=== PATIENT | male | born 1965 | race Hispanic/Latino ===

== ENCOUNTER 2020-01-29 22:50 | Inpatient (IN) | payer MEDICAID ==
[2020-01-29 23:25] LABS: Basophils # (Auto) 0.1 K/mm3 (0.0-0.1); Basophils % (Auto) 1.1 % (0.0-1.8); Eosinophils # (Auto) 0.1 K/mm3 (0.0-0.4); Eosinophils % (Auto) 2.1 % (0.0-4.3); Hematocrit 42.6 % (35.5-45.6); Hemoglobin 14.9 gm/dl (11.8-15.2); Lymphocytes # (Auto) 2.8 K/mm3 (1.2-5.4); Lymphocytes % (Auto) 39.7 % (13.4-35.0); Mean Corpuscular HGB Conc 35 % (32-34); Mean Corpuscular Volume 82 fl (84-94); Monocytes % (Auto) 14.7 % (0.0-7.3); Platelet Count 332 K/mm3 (140-440); Red Blood Count 5.21 M/mm3 (3.65-5.03); Red Cell Distribution Width 15.2 % (13.2-15.2)
[2020-01-29 23:38] LABS: BUN/Creatinine Ratio 17; Blood Urea Nitrogen 20 mg/dL (9-20); Calcium 10.5 mg/dL (8.4-10.2); Hemolysis Index 5
[2020-01-29 23:41] LABS: INR 1.07 (0.87-1.13); Partial Thromboplastin Time 27.5 Sec. (24.2-36.6)
--- NOTE | 2020-01-30 00:02 | Cat Scan Report ---
CT HEAD WITHOUT CONTRAST INDICATION: Stroke-Like symptoms. Hx of previous T.I.A.'s Not balancing. Hx of High BP TECHNIQUE: All CT scans at this location are performed using CT dose reduction for ALARA by means of automated exposure control. COMPARISON: None available. FINDINGS: BRAIN: No hemorrhage or mass effect are seen. No evidence of acute cortical infarction is noted. Mode rate white matter microvascular changes and focal lacunar infarctions are seen. In the deep brain bessy aterally involving the basal ganglia and thalami, there are multiple small lacunar infarctions, most of which appear old but a few are age indeterminate. ORBITS: Normal as visualized. SOFT TISSUES OF HEAD: Normal. CALVARIUM: Normal. VISUALIZED PARANASAL SINUSES AND MASTOID AIR CELLS: Clear. ADDITIONAL FINDINGS: None. IMPRESSION: No definite acute abnormality is seen. Multiple focal ischemic changes as discussed above , a few age indeterminate. Signer Name: Blaine Herbert MD Signed: 01/29/2020 11:57 PM Workstation Name: [id number]
[2020-01-30] MEDS ORDERED: ASPIRIN 325 MG TAB PO ONE (00:17)
--- NOTE | 2020-01-30 00:21 | Emergency Department Report ---
ED Neuro Deficit HPI - General Chief Complaint: Neuro Symptoms/Deficit Stated Complaint: LOSS OF VISION LEFT EYE, WEAKNESS Time Seen by Provider: 01/29/20 23:06 Source: patient Mode of arrival: Ambulatory Limitations: No Limitations - History of Present Illness Initial Comments: Patient is a 54-year-old male with a past medical history of hype rtension diabetes who is presenting with 2 days of neurological symptoms. Patient states that approximately 2 days ago he started having gait imbalance. Patient states that he felt as though he was falling to the left. Patient also was having some difficulty with speaking. Patient states that he has left facial numbness. He denies any focal weakness to his arms or legs. Patient denies nausea vomiting diarrhea chest pain shortness of breath fevers or chills at this time. - Related Data Allergies/Adverse Reactions: Allergies Allergy/AdvReac Type Severity Reaction Status Date / Time No Known Allergies Allergy Unverified 01/29/20 23:01 ED Review of Systems ROS: Stated complaint: LOSS OF VISION LEFT EYE, WEAKNESS Other details as noted in HPI Comment: All other systems reviewed and negative ED Past Medical Hx - Past Medical History Hx Hypertension: Yes Hx Diabetes: Yes Hx Kidney Stones: Yes - Surgical History Past Surgical History?: Yes Hx Cholecystectomy: Yes - Social History Smoking Status: Never Smoker Substance Use Type: None ED Neuro Physical Exam - General Limitations: No Limitations General appearance: alert, in no apparent distress Suspected Stroke: Yes - Head Head exam: Present: atraumatic, normocephalic - Eye Eye exam: Present: normal appearance - ENT ENT exam: Present: mucous membranes moist - Neck Neck exam: Present: normal inspection - Respiratory Respiratory exam: Present: normal lung sounds bilaterally. Absent: respiratory distress, wheezes, rales - Cardiovascular Cardiovascular Exam: Present: regular rate, normal rhythm, normal heart sounds. Absent: systolic murmur, diastolic murmur, rubs, gallop - GI/Abdominal GI/Abdominal exam: Present: soft, normal bowel sounds. Absent: distended, tenderness, guarding, rebound - Rectal Rectal exam: Present: deferred - Extremities Exam Extremities exam: Present: normal inspection - Back Exam Back exam: Present: normal inspection - Neurological Exam Neurological exam: Present: alert, oriented X3, CN II-XII intact, motor sensory deficit - NIHSS Assessment Interval: Baseline 1a. Level of Consciousness: alert/keenly responsive 1b. LOC Questions: answers both correctly 1c. LOC Commands: performs tasks correctly 2. Best Gaze: normal 3. Visual: no visual loss 4. Facial Palsy: normal symmetrical movement 5b. Motor Arm Right: no drift 5a. Motor Arm Left: no drift 6a. Motor Leg Left: no drift 6b. Motor Leg Right: no drift 7. Limb Ataxia: absent 8. Sensory: mild/moderate sensory loss 9. Best Language: mild/moderate aphasia 10. Dysarthria: normal 11. Extinction/Inattention: no abnormality Total Score: 2 Stroke Severity: Minor Stroke - Psychiatric Psychiatric exam: Present: normal affect, normal mood - Skin Skin exam: Present: warm, dry, intact, normal color. Absent: rash ED Course Vital Signs 01/29/20 01/30/20 01/30/20 22:54 00:04 00:05 Temperature 97.5 F L Pulse Rate 90 66 66 Respiratory 20 18 Rate Blood Pressure 201/105 Blood Pressure 206/124 200/105 [Right] O2 Sat by Pulse 100 97 Oximetry 01/30/20 00:07 Temperature Pulse Rate Respiratory 18 Rate Blood Pressure Blood Pressure [Right] O2 Sat by Pulse 97 Oximetry - Lab Data Result diagrams: 01/29/20 23:06 01/29/20 23:06 Lab Results 01/29/20 01/29/20 01/29/20 Range/Units 23:06 23:06 23:06 WBC 7.0 (4.5-11.0) K/mm3 RBC 5.21 H (3.65-5.03) M/mm3 Hgb 14.9 (11.8-15.2) gm/dl Hct 42.6 (35.5-45.6) % MCV 82 L (84-94) fl MCH 29 (28-32) pg MCHC 35 H (32-34) % RDW 15.2 (13.2-15.2) % Plt Count 332 (140-440) K/mm3 Lymph % (Auto) 39.7 H (13.4-35.0) % [place] % (Auto) 14.7 H (0.0-7.3) % Eos % (Auto) 2.1 (0.0-4.3) % Baso % (Auto) 1.1 (0.0-1.8) % Lymph # 2.8 (1.2-5.4) K/mm3 [place] # 1.0 H (0.0-0.8) K/mm3 Eos # 0.1 (0.0-0.4) K/mm3 Baso # 0.1 (0.0-0.1) K/mm3 Seg Neutrophils % 42.4 (40.0-70.0) % Seg Neutrophils # 3.0 (1.8-7.7) K/mm3 PT 14.0 (12.2-14.9) Sec. INR 1.07 (0.87-1.13) APTT 27.5 (24.2-36.6) Sec. Thrombin Time (15.1-19.6) Sec. Sodium 142 (137-145) mmol/L Chloride 99.1 (98-107) mmol/L Carbon Dioxide 27 (22-30) mmol/L Anion Gap 18 mmol/L BUN 20 (9-20) mg/dL Creatinine 1.2 (0.8-1.5) mg/dL Estimated GFR > 60 ml/min BUN/Creatinine Ratio 17 % Glucose 193 H (75-100) mg/dL POC Glucose (70-105) Calcium 10.5 H (8.4-10.2) mg/dL Troponin T < 0.010 (0.00-0.029) ng/mL 01/29/20 01/29/20 Range/Units 23:06 23:21 WBC (4.5-11.0) K/mm3 RBC (3.65-5.03) M/mm3 Hgb (11.8-15.2) gm/dl Hct (35.5-45.6) % MCV (84-94) fl MCH (28-32) pg MCHC (32-34) % RDW (13.2-15.2) % Plt Count (140-440) K/mm3 Lymph % (Auto) (13.4-35.0) % [place] % (Auto) (0.0-7.3) % Eos % (Auto) (0.0-4.3) % Baso % (Auto) (0.0-1.8) % Lymph # (1.2-5.4) K/mm3 [place] # (0.0-0.8) K/mm3 Eos # (0.0-0.4) K/mm3 Baso # (0.0-0.1) K/mm3 Seg Neutrophils % (40.0-70.0) % Seg Neutrophils # (1.8-7.7) K/mm3 PT (12.2-14.9) Sec. INR (0.87-1.13) APTT (24.2-36.6) Sec. Thrombin Time 15.8 (15.1-19.6) Sec. Sodium (137-145) mmol/L Chloride (98-107) mmol/L Carbon Dioxide (22-30) mmol/L Anion Gap mmol/L BUN (9-20) mg/dL Creatinine (0.8-1.5) mg/dL Estimated GFR ml/min BUN/Creatinine Ratio % Glucose (75-100) mg/dL POC Glucose 170 H (70-105) Calcium (8.4-10.2) mg/dL Troponin T (0.00-0.029) ng/mL - Radiology Data Patient: RACHEL TORO MR#: [id number] : 1965 Acct:[id number] Age/Sex: 54 / M ADM Date: 01/29/20 Loc: ED Attending Dr: Ordering Physician: VIOLETA DUEÑAS MD Date of Service: 01/29/20 Procedure(s): CT head/brain wo con Accession Number(s): [id number] cc: VIOLETA DUEÑAS MD CT HEAD WITHOUT CONTRAST INDICATION: Stroke-Like symptoms. Hx of previous T.I.A.'s Not balancing. Hx of High BP TECHNIQUE: All CT scans at this location are performed using CT dose reduction for ALARA by means of automated exposure control. COMPARISON: None available. FINDINGS: BRAIN: No hemorrhage or mass effect are seen. No evidence of acute cortical infarction is noted. Moderate white matter microvascular changes and focal lacunar infarctions are seen. In the deep brain bilaterally involving the basal ganglia and thalami, there are multiple small lacunar infarctions, most of which appear old but a few are age indeterminate. ORBITS: Normal as visualized. SOFT TISSUES OF HEAD: Normal. CALVARIUM: Normal. VISUALIZED PARANASAL SINUSES AND MASTOID AIR CELLS: Clear. ADDITIONAL FINDINGS: None. IMPRESSION: No definite acute abnormality is seen. Multiple focal ischemic changes as discussed above, a few age indeterminate. Signer Name: Blaine Herbert MD Signed: 01/29/2020 11:57 PM Workstation Name: [id number] - Medical Decision Making Patient is a 54-year-old male is presenting with several neurological symptoms. Symptoms been present for greater than 24 hours making the patient not a candidate for TPA or intervention. Patient is has a relatively low NIH. Patient does have age indeterminate lacunar infarcts on CT. Patient given aspirin. Blood pressure was managed with labetalol. Patient be admitted to the hospitalist service for further neurological evaluation. Critical care attestation.: If time is entered above; I have spent that time in minutes in the direct care of this critically ill patient, excluding procedure time. ED Disposition Clinical Impression: Acute lacunar infarction, Hypertensive urgency, malignant, Hyperglycemia Disposition: -09 OP ADMIT IP TO THIS HOSP Is pt being admited?: Yes Does the pt Need Aspirin: No Condition: Stable Time of Disposition: 00:26
[2020-01-30] MEDS ORDERED: POTASSIUM CHLORIDE ER 20 MEQ TAB PO ONE ×2 (00:41→00:44)
[2020-01-30] MEDS ORDERED: ASPIRIN 325 MG TAB ONE (00:44)
[2020-01-30] MEDS ORDERED: ACETAMINOPHEN 650 MG RECT SUPP PR PRN (02:02)
[2020-01-30] MEDS ORDERED: ONDANSETRON 4 MG/2 ML INJ IV PRN (02:02)
[2020-01-30] MEDS ORDERED: DEXTROSE 50% IN WATER (25GM) 50 ML SYRINGE IV PRN (02:05)
--- NOTE | 2020-01-30 05:06 | History and Physical Report ---
History of Present Illness Date of examination: 01/30/20 Date of admission: 01/30/20 00:26 Chief complaint: Ataxia and Right Facial Numbness History of present illness: History of present illness, patient is a 54-year-old male started having difficulty maintaining his balance while walking. Patient was also having numbness on the left side of the face. He has also history of speech impairment and denies history of fever, cough, chest pain, nausea or vomiting. Past History Past Medical History: diabetes, hypertension, stroke Past Surgical History: No surgical history Social history: no significant social history Family history: no significant family history Medications and Allergies Allergies Allergy/AdvReac Type Severity Reaction Status Date / Time No Known Allergies Allergy Unverified 01/29/20 23:01 Home Medications Medication Instructions Recorded Confirmed Last Taken Type Atorvastatin [Lipitor Tab] 40 mg PO QDAY 01/30/20 01/30/20 Unknown History Metformin HCl [metFORMIN] 1,000 mg PO QDAY 01/30/20 01/30/20 Unknown History amLODIPine [Norvasc] 10 mg PO DAILY 01/30/20 01/30/20 Unknown History lisinopriL [Zestril TAB] 40 mg PO QDAY 01/30/20 01/30/20 Unknown History Active Meds: Active Medications Acetaminophen (Tylenol) 650 mg [place] Q4H PRN PRN Reason: Fever >101 Amlodipine Besylate (Amlodipine) 10 mg PO DAILY [facility] Aspirin (Aspirin) 325 mg PO QDAY [facility] Atorvastatin Calcium (Lipitor) 40 mg PO QDAY [facility] Dextrose (D50w (25gm) Syringe) 0 ml IV Q30MIN PRN; Protocol PRN Reason: Hypoglycemia Insulin Human Regular (Humulin R) 0 units SUB-Q AC [facility]; Protocol Insulin Human Regular (Humulin R) 0 units SUB-Q QHS [facility]; Protocol Lisinopril (Zestril) 40 mg PO QDAY [facility] Ondansetron HCl (Zofran) 4 mg IV Q8H PRN PRN Reason: Nausea And Vomiting Pneumococcal Polyvalent Vaccine (Pneumovax 23) 0.5 ml IM .ONCE ONE Stop: 01/30/20 12:01 Review of Systems Constitutional: weakness, no weight gain, no fever, no chills, no anorexia, no fatigue, no malaise Eyes: bilateral: other (NO BILATERAL EYE SYMPTOMS) Ears, nose, mouth and throat: no ear pain, no decreased hearing, no nasal congestion, no nasal discharge, no sinus pressure, no dental pain, no mouth pain, no dysphagia, no hoarseness, no swelling in mouth, no headache, no vertigo Cardiovascular: no chest pain, no orthopnea, no palpitations, no syncope, no lightheadedness, no shortness of breath, no paroxysmal nocturnal dyspnea Respiratory: no cough, no shortness of breath, no dyspnea on exertion, no wheezing, no pleurisy, no pain on inspiration Gastrointestinal: no abdominal pain, no nausea, no vomiting, no diarrhea, no constipation, no change in bowel habits, no hematemesis, no melena, no loss of appetite, no early satiety, no heartburn, no indigestion Genitourinary Male: no dysuria, no urinary frequency, no urinary hesitancy, no nocturia, no impotence Rectal: no pain, no incontinence, no hemorrhoids, no discharge Musculoskeletal: no neck pain, no shooting arm pain, no arm numbness/tingling, no low back pain, no shooting leg pain, no leg numbness/tingling, no redness of joints, no morning stiffness, no muscle weakness, no muscle cramps, no myalgias, no atrophy, no frequent falls, no fractures, no loss of height Integumentary: no rash, no pruritis, no redness, no sores, no wounds, no jaundice, no growths, no bullae, no lesions, no depigmentation, no acne, no dryness, no color changes, no striae, no hirsutism Neurological: change in speech, balance difficulties, no head injury, no paralysis, no weakness, no parathesias, no numbness, no tingling, no seizures, no syncope, no tremors, no ataxia, no vertigo, no headaches, no migraines, no convulsions Psychiatric: no anxiety, no insomnia, no suicidal ideation, no hopelessness, no anhedonia, no anxiety attacks, no difficulties concentrating, no confusion Endocrine: no cold intolerance, no heat intolerance, no polyphagia, no excessive thirst, no polydipsia, no polyuria, no nocturia, no excessive sweating, no proptosis, no deepening of the voice, no palpatations, no high blood sugars, no low blood sugars, no recent glucocorticoid use Hematologic/Lymphatic: no easy bruising, no easy bleeding, no lymphadenopathy, n o lymphedema Allergic/Immunologic: no allergic rhinitis, no persistent infections, no anaphylaxis, no angioedema, no gluten intolerance Exam - Constitutional Vitals: Temp Pulse Resp BP Pulse Ox 98.3 F 68 22 185/94 100 01/30/20 02:07 01/30/20 03:42 01/30/20 02:07 01/30/20 02:07 01/30/20 03:42 General appearance: Present: no acute distress. Absent: disheveled - EENT Eyes: Present: PERRL, EOM intact. Absent: mydriasis ENT: no hearing intact - Neck Neck: Present: supple, normal ROM. Absent: carotid bruits - Respiratory Respiratory effort: normal - Cardiovascular Rhythm: regular Heart Sounds: Present: S1 & S2. Absent: gallop, systolic murmur, diastolic murmur, rub - Extremities Extremities: no ischemia, No edema Peripheral Pulses: within normal limits - Abdominal General gastrointestinal: Present: soft, non-tender, non-distended, mass. Absent: tender, distended, rigid, hypoactive bowel sounds, absent bowel sounds, hepatomegaly, splenomegaly Male genitourinary: Present: normal. Absent: tender, right inguinal hernia, left inguinal hernia, penile edema - Rectal Rectal Exam: deferred - Integumentary Integumentary: Present: clear, warm. Absent: dry, jaundice, rash, clammy - Musculoskeletal Musculoskeletal: strength equal bilaterally, generalized weakness - Psychiatric Psychiatric: appropriate mood/affect - Neurologic Neurologic: CNII-XII intact Results - Labs CBC & Chem 7: 01/29/20 23:06 01/29/20 23:06 Labs: Laboratory Last Values WBC 7.0 K/mm3 (4.5-11.0) 01/29/20 23:06 RBC 5.21 M/mm3 (3.65-5.03) H 01/29/20 23:06 Hgb 14.9 gm/dl (11.8-15.2) 01/29/20 23:06 Hct 42.6 % (35.5-45.6) 01/29/20 23:06 MCV 82 fl (84-94) L 01/29/20 23:06 MCH 29 pg (28-32) 01/29/20 23:06 MCHC 35 % (32-34) H 01/29/20 23:06 RDW 15.2 % (13.2-15.2) 01/29/20 23:06 Plt Count 332 K/mm3 (140-440) 01/29/20 23:06 Lymph % (Auto) 39.7 % (13.4-35.0) H 01/29/20 23:06 [place] % (Auto) 14.7 % (0.0-7.3) H 01/29/20 23:06 Eos % (Auto) 2.1 % (0.0-4.3) 01/29/20 23:06 Baso % (Auto) 1.1 % (0.0-1.8) 01/29/20 23:06 Lymph # 2.8 K/mm3 (1.2-5.4) 01/29/20 23:06 [place] # 1.0 K/mm3 (0.0-0.8) H 01/29/20 23:06 Eos # 0.1 K/mm3 (0.0-0.4) 01/29/20 23:06 Baso # 0.1 K/mm3 (0.0-0.1) 01/29/20 23:06 Seg Neutrophils % 42.4 % (40.0-70.0) 01/29/20 23:06 Seg Neutrophils # 3.0 K/mm3 (1.8-7.7) 01/29/20 23:06 PT 14.0 Sec. (12.2-14.9) 01/29/20 23:06 INR 1.07 (0.87-1.13) 01/29/20 23:06 APTT 27.5 Sec. (24.2-36.6) 01/29/20 23:06 Thrombin Time 15.8 Sec. (15.1-19.6) 01/29/20 23:06 Sodium 142 mmol/L (137-145) 01/29/20 23:06 Potassium 2.5 mmol/L (3.6-5.0) L* 01/29/20 23:06 Chloride 99.1 mmol/L (98-107) 01/29/20 23:06 Carbon Dioxide 27 mmol/L (22-30) 01/29/20 23:06 Anion Gap 18 mmol/L 04/30/20 23:06 BUN 20 mg/dL (9-20) 01/29/20 23:06 Creatinine 1.2 mg/dL (0.8-1.5) 01/29/20 23:06 Estimated GFR > 60 ml/min 01/29/20 23:06 BUN/Creatinine Ratio 17 % 01/29/20 23:06 Glucose 193 mg/dL (75-100) H 01/29/20 23:06 POC Glucose 170 (70-105) H 01/29/20 23:21 Calcium 10.5 mg/dL (8.4-10.2) H 01/29/20 23:06 Troponin T < 0.010 ng/mL (0.00-0.029) 01/29/20 23:06 Akhtar/IV: IV Catheter Type [Left INT / Saline Lock Antecubital] Assessment and Plan - Patient Problems (1) Hypokalemia Current Visit: Yes Status: Acute (2) Acute lacunar infarction Current Visit: Yes Status: Acute Plan to address problem: 1. patient will be admitted to telemetry as in-patient, patient will be on daily aspirin. 25 mg bilateral 2. N.p.o. until swallow test is passed and patient will have speech therapy consult this morning 3. Patient will have neurological follow-up with Dr. scott Gamez 4. Patient will have MRI of the brain without contrast and will have bilateral carotid Doppler done this morning. 5. Patient will have 2D echo done this morning, and will have physical therapy consult for evaluation and treatment 6. Patient will be on Accu-Cheks ac and qhs followed by low-dose regular insulin sliding scale. 7. Patient will have IV potassium chloride replacement 8. Patient's blood pressure will be monitored and gradually reduced. (3) Hypertensive urgency, malignant Current Visit: Yes Status: Acute (4) Hyperglycemia Current Visit: Yes Status: Acute
[2020-01-30] MEDS: POTASSIUM CHLORIDE 10 MEQ 10 MEQ/100 ML BAG IV SCH ×2 (06:21→07:00)
[2020-01-30] MEDS: INSULIN REGULAR, HUMAN 100 UNITS/1 ML SUB-Q SCH ×4 (07:30→21:18)
--- NOTE | 2020-01-30 10:20 | Event Note ---
Date: 01/30/20 Chart reviewed. This is a follow-up from an admission earlier this morning. We will continue to plan as outlined in the H&P. Total visit time equals 35 minutes with greater than 50% spent on coordination of care and counseling.
--- NOTE | 2020-01-30 10:22 | Magnetic Resonance Report ---
MRI BRAIN WITHOUT CONTRAST INDICATION / CLINICAL INFORMATION: MAIN: LACUNAR INFARCT WITH ATAXIA, FACIAL NUMBNESS, SLURRED SPEECH. TECHNIQUE: Multiplanar, multisequence MR images of the brain were obtained. COMPARISON: The study is compared to the earlier CT of 01/29/2020. FINDINGS: BRAIN / INTRACRANIAL CONTENTS: There is an acute to infarct along the left middle cerebellar peduncle and anterior left cerebellum measuring 2.2 cm in greatest AP dimension. There are old the small infa rcts involving the left paramedian mariano as well as the torres radiata, larger on the right. There are also lacunar infarcts along the right basal ganglia which are chronic. There is otherwise mild to mo derate microvascular angiopathy. The diffusion imaging reveals no further evidence of recent infarcti on. Above findings are advanced for the patient's age at. This mild cerebral atrophy with associated prom inence of the ventricular system. No extra-axial fluid collections or significant mass effect is iden tified at. CRANIOCERVICAL JUNCTION: No significant abnormality. VASCULAR FLOW-VOIDS: The motion degrades the image quality. However, the distal internal carotid yoel kota and vertebrobasilar system grossly demonstrate appropriate signal voids. ORBITS: No significant abnormality of visualized orbits. SINUSES / MASTOIDS: There are mild focal inflammatory changes within the left ethmoid air cells. ADDITIONAL FINDINGS: None. IMPRESSION: 1. There is a 2.2 cm acute infarct involving the left middle cerebellar peduncle and anterior left ce rebellum as detailed above. 2. There are otherwise multiple old infarcts and mild to moderate microvascular angiopathy, also desc ribed above. Signer Name: Rico Torres MD Signed: 01/30/2020 10:17 AM Workstation Name: [id number]
--- NOTE | 2020-01-30 10:30 | Vascular Lab Report ---
VL carotid duplex BILAT INDICATION / CLINICAL INFORMATION: ATAXIA AND LACUNAR BRAIN INFARCT. COMPARISON: None available. FINDINGS: NASCET criteria were used for stenosis determination. Right common carotid peak systolic velocity 116 Right common carotid end-diastolic velocity 13 Right internal carotid peak systolic velocity 78 Right internal carotid end-diastolic velocity 20 Left common carotid peak systolic velocity 72 Left common carotid end-diastolic velocity 12 Left internal carotid peak systolic velocity 88 Left internal carotid end-diastolic velocity 24 Antegrade vertebral flow is demonstrated bilaterally. IMPRESSION: 1. 0-50% stenosis of the common and internal carotid arteries. Signer Name: Lizandro Ramos MD Signed: 01/30/2020 10:26 AM Workstation Name: [id number]
[2020-01-30] MEDS: ASPIRIN 325 MG TAB PO SCH (10:44)
[2020-01-30] MEDS: LISINOPRIL 40 MG TAB PO SCH (10:45)
[2020-01-30] MEDS: amLODIPine 10 MG TAB PO SCH (10:45)
[2020-01-30] MEDS ORDERED: PNEUMOCOCCAL 23 Valent 0.5 ML VIAL IM ONE (12:00)
[2020-01-30 14:44] LABS: Chol/HDL Ratio 5.22 %
--- NOTE | 2020-01-30 15:38 | Consultation ---
Past History Past Medical History: diabetes, hypertension, stroke Past Surgical History: No surgical history Social history: no significant social history Family history: no significant family history Medications and Allergies Allergies Allergy/AdvReac Type Severity Reaction Status Date / Time No Known Allergies Allergy Unverified 01/29/20 23:01 Home Medications Medication Instructions Recorded Confirmed Last Taken Type Atorvastatin [Lipitor Tab] 40 mg PO QDAY 01/30/20 01/30/20 Unknown History Metformin HCl [metFORMIN] 1,000 mg PO QDAY 01/30/20 01/30/20 Unknown History amLODIPine [Norvasc] 10 mg PO DAILY 01/30/20 01/30/20 Unknown History lisinopriL [Zestril TAB] 40 mg PO QDAY 01/30/20 01/30/20 Unknown History Active Meds: Active Medications Acetaminophen (Tylenol) 650 mg [place] Q4H PRN PRN Reason: Fever >101 Amlodipine Besylate (Amlodipine) 10 mg PO DAILY [facility] Last Admin: 01/30/20 10:45 Dose: 10 mg Documented by: Aspirin (Aspirin) 325 mg PO QDAY [facility] Last Admin: 01/30/20 10:44 Dose: 325 mg Documented by: Atorvastatin Calcium (Lipitor) 40 mg PO QDAY [facility] Last Admin: 01/30/20 10:44 Dose: 40 mg Documented by: Dextrose (D50w (25gm) Syringe) 0 ml IV Q30MIN PRN; Protocol PRN Reason: Hypoglycemia Insulin Human Regular (Humulin R) 0 units SUB-Q [facility]; Protocol Last Admin: 01/30/20 11:57 Dose: Not Given Documented by: Insulin Human Regular (Humulin R) 0 units SUB-Q QHS [facility]; Protocol Lisinopril (Zestril) 40 mg PO QDAY [facility] Last Admin: 01/30/20 10:45 Dose: 40 mg Documented by: Ondansetron HCl (Zofran) 4 mg IV Q8H PRN PRN Reason: Nausea And Vomiting Physical Examination - Vital Signs Vital Signs: Vital Signs Temp Pulse Resp BP Pulse Ox 97.5 F L 90 20 206/124 100 01/29/20 22:54 01/29/20 22:54 01/29/20 22:54 01/29/20 22:54 01/29/20 22:54 Results - Laboratory Findings CBC and BMP: 01/29/20 23:06 01/29/20 23:06 Abnormal Lab Findings: Abnormal Labs 01/29/20 01/29/20 01/29/20 23:06 23:06 23:21 RBC 5.21 H MCV 82 L MCHC 35 H Lymph % (Auto) 39.7 H [place] % (Auto) 14.7 H [place] # 1.0 H Potassium 2.5 L* Glucose 193 H POC Glucose 170 H Calcium 10.5 H Triglycerides HDL Cholesterol 01/30/20 01/30/20 01/30/20 06:11 08:21 11:30 RBC MCV MCHC Lymph % (Auto) [place] % (Auto) [place] # Potassium Glucose POC Glucose 196 H 180 H 129 H Calcium Triglycerides HDL Cholesterol 01/30/20 13:26 RBC MCV MCHC Lymph % (Auto) [place] % (Auto) [place] # Potassium Glucose POC Glucose Calcium Triglycerides 293 H HDL Cholesterol 31 L Assessment and Plan 54 YEAR OLD MALE WITH HISTORY OF HYPERTENSION,DIABETES WHO PRERSENTED TO THE ER WITH 2 DAYS HISTORY OF A TENDENCY TO MOVE TO THE LEFT WHILE WAKING AND ALSO MILD LEFT SIDED WEAKNESS,AND LEFT FACIAL NUMBNESS ION THE ROCKY ORAL AREA ON THE LEFT SIDE. WORK UP INCLUDING CT SCAN SHOWED MULTIPLE LACUNAR INFARCTS IN THE RIGHT BASAL GANGLIA,AND ONE OR TWO ON LEFT SIDE, LAB SHOWED INCREASED TRIGLYCERIDE AND INCREASED LDL AND LOW HDL. PHYSICAL EXAMINATION GENERAL - IN NO ACUTE DISTRESS. PATIENT IS ALERT AND APPROPRIATE AND HAS INSIGHT INTO HIS PROBLEMS AND ANSWERS QUESTIONS APPROPRIATELY HEART-NORMAL RATE AND RHYTHM. CAROTIDS- BOTH PALPABLE CRANIAL NERVES- NO FACIAL ASYMMETRY WAS NOTED, NO FACIAL WEAKNESS. LEFT ROCKY ORAL NUMBNESS WAS NOTED MOTOR- MILD WEAKNESS OF LEFT UPPER AND LOWER EXTREMITIES COMPARED TO THE RIGHT. REFLEXES- SLIGHTLY INCREASED ON THE LEFT SIDE WITH UP GOING TOE ON THE LEFT. [id number]- FINGER TO NOSE IS SLIGHTLY DYSMETRIC ON THE LEFT SENSORY- SENSORY EXAMINATION IS GROSSLY WITH IN NORMAL LIMIT IIMPRESSION. 1. LACUNAR STROKE IN THE RT BASAL GANGLIA , SMALL VESSEL DISEASE CONTRIBUTING TO LEFT SIDE GAIT IMBALANCE. RECOMMEND. 1. ASPIRIN AND STATIN. 2. 2D ECHO, CTA OF NECK 3. T4.TSH. 4. PHYSICAL THERAPY FOR GAIT TRAINING 5. DIETARY COUNSELING FOR LOW FAT AND LOW CHOLESTEROL DIET.
[2020-01-30] MEDS ORDERED: HALOPERIDOL LACTATE 5 MG/1 ML INJ IM ONE (16:10)
[2020-01-31] MEDS ORDERED: ZOLPIDEM 5 MG TAB PO ONE (01:27)
[2020-01-31] MEDS ORDERED: hydrALAZINE 20 MG/1 ML INJ IV ONE (01:35)
[2020-01-31] MEDS: INSULIN REGULAR, HUMAN 100 UNITS/1 ML SUB-Q SCH ×4 (09:00→21:46)
[2020-01-31] MEDS: ASPIRIN 325 MG TAB PO SCH (09:01)
[2020-01-31] MEDS: amLODIPine 10 MG TAB PO SCH (09:01)
[2020-01-31] MEDS: LISINOPRIL 40 MG TAB PO SCH (09:01)
--- NOTE | 2020-01-31 10:38 | Progress Note ---
Assessment and Plan Assessment and plan: Right basal ganglia lacunar infarct. Continue aspirin and statin. Follow-up CTA of neck and echocardiogram. Follow-up TSH T4. PT/OT. PT recommends subacute rehab. Hypertension. Continue antihypertensive medications. Diabetes mellitus type 2. Continue Accu-Cheks and sliding scale insulin. Disposition. Subacute rehab when bed available. History Interval history: No new issues Hospitalist Physical - Constitutional Vitals: Temp Pulse Resp BP Pulse Ox 98.6 F 75 20 169/95 96 01/31/20 08:16 01/31/20 09:01 01/31/20 08:16 01/31/20 09:01 01/31/20 08:16 General appearance: Present: no acute distress. Absent: disheveled - EENT Eyes: Present: PERRL, EOM intact ENT: hearing intact, clear oral mucosa, dentition normal - Neck Neck: Present: supple, normal ROM - Respiratory Respiratory effort: normal Respiratory: bilateral: CTA - Cardiovascular Rhythm: regular Heart Sounds: Present: S1 & S2. Absent: gallop, rub - Extremities Extremities: no ischemia, No edema, Full ROM - Abdominal General gastrointestinal: soft, non-tender, non-distended, normal bowel sounds - Integumentary Integumentary: Present: clear, warm, dry - Neurologic Neurologic: CNII-XII intact, moves all extremities Results - Labs CBC & Chem 7: 01/29/20 23:06 01/29/20 23:06 Labs: Laboratory Last Values WBC 7.0 K/mm3 (4.5-11.0) 01/29/20 23:06 RBC 5.21 M/mm3 (3.65-5.03) H 01/29/20 23:06 Hgb 14.9 gm/dl (11.8-15.2) 01/29/20 23:06 Hct 42.6 % (35.5-45.6) 01/29/20 23:06 MCV 82 fl (84-94) L 01/29/20 23:06 MCH 29 pg (28-32) 01/29/20 23:06 MCHC 35 % (32-34) H 01/29/20 23:06 RDW 15.2 % (13.2-15.2) 01/29/20 23:06 Plt Count 332 K/mm3 (140-440) 01/29/20 23:06 Lymph % (Auto) 39.7 % (13.4-35.0) H 01/29/20 23:06 [place] % (Auto) 14.7 % (0.0-7.3) H 01/29/20 23:06 Eos % (Auto) 2.1 % (0.0-4.3) 01/29/20 23:06 Baso % (Auto) 1.1 % (0.0-1.8) 01/29/20 23:06 Lymph # 2.8 K/mm3 (1.2-5.4) 01/29/20 23:06 [place] # 1.0 K/mm3 (0.0-0.8) H 01/29/20 23:06 Eos # 0.1 K/mm3 (0.0-0.4) 01/29/20 23:06 Baso # 0.1 K/mm3 (0.0-0.1) 01/29/20 23:06 Seg Neutrophils % 42.4 % (40.0-70.0) 01/29/20 23:06 Seg Neutrophils # 3.0 K/mm3 (1.8-7.7) 01/29/20 23:06 PT 14.0 Sec. (12.2-14.9) 01/29/20 23:06 INR 1.07 (0.87-1.13) 01/29/20 23:06 APTT 27.5 Sec. (24.2-36.6) 01/29/20 23:06 Thrombin Time 15.8 Sec. (15.1-19.6) 01/29/20 23:06 Sodium 142 mmol/L (137-145) 01/29/20 23:06 Potassium 2.5 mmol/L (3.6-5.0) L* 01/29/20 23:06 Chloride 99.1 mmol/L (98-107) 01/29/20 23:06 Carbon Dioxide 27 mmol/L (22-30) 01/29/20 23:06 Anion Gap 18 mmol/L 01/29/20 23:06 BUN 20 mg/dL (9-20) 01/29/20 23:06 Creatinine 1.2 mg/dL (0.8-1.5) 01/29/20 23:06 Estimated GFR > 60 ml/min 01/29/20 23:06 BUN/Creatinine Ratio 17 % 01/29/20 23:06 Glucose 193 mg/dL (75-100) H 01/29/20 23:06 POC Glucose 140 (70-105) H 01/31/20 06:40 Calcium 10.5 mg/dL (8.4-10.2) H 01/29/20 23:06 Troponin T < 0.010 ng/mL (0.00-0.029) 01/29/20 23:06 Triglycerides 293 mg/dL (2-149) H 01/30/20 13:26 Cholesterol 162 mg/dL (50-199) 01/30/20 13:26 LDL Cholesterol Direct 105 mg/dL (50-130) 01/30/20 13:26 HDL Cholesterol 31 mg/dL (40-59) L 01/30/20 13:26 Cholesterol/HDL Ratio 5.22 % 01/30/20 13:26 Nasal Screen MRSA (PCR) Negative (Negative) 01/30/20 04:50 - Diagnostic Impressions Diagnostic Impressions: Echocardiogram 01/30/20 06:00 Transthoracic Echocardiogram Indication: Brain infarct BP: 185/94 HR: 72 Conclusions *Mild concentric left ventricular hypertrophy is observed. *Global left ventricular systolic function is normal. *The estimated ejection fraction is 55-60%. *Abnormal left ventricular diastolic filling is observed, consistent with impaired relaxation. *There is mild aortic regurgitation. *There is no pericardial effusion. *Normal bubble study without evidence of intracardiac or intrapulmonary communication Findings Left Ventricle: The left ventricular chamber size is normal. Mild concentric left ventricular hypertrophy is observed. Global left ventricular systolic function is normal. The estimated ejection fraction is 55-60%. Abnormal left ventricular diastolic filling is observed, consistent with impaired relaxation. Left Atrium: The left atrial chamber size is normal. Right Ventricle: The right ventricular cavity size is normal. The right ventricular global systolic function is normal. Right Atrium: The right atrial cavity size is normal. No atrial septal defected is demonstrated by agitated saline contrast. Aortic Valve: The aortic valve is trileaflet. There is mild aortic regurgitation. Mitral Valve: The mitral valve leaflets are mildly thickened. There is trace of mitral regurgitation. Tricuspid Valve: The tricuspid valve leaflets are normal. There is trace tricuspid regurgitation. The right ventricular systolic pressure is calculated at 21 mmHg. Pulmonic Valve: The pulmonic valve appears normal. There is no evidence of pulmonic regurgitation. Pericardium: There is no pericardial effusion. There is a minimial pericardial effusion. Aorta: There is no dilatation of the ascending aorta. There is no dilatation of the aortic root. Venous: The inferior vena cava appears normal in size. There is a greater than 50% respiratory change in the inferior vena cava dimension. Measurements Chambers 2D Name Value Normal Range IVSd (2D) 1.26 cm (0.6 - 1.1) LVPWd (2D) 1.28 cm (0.6 - 1.1) LVIDd (2D) 4.16 cm (3.7 - 5.6) LVIDs (2D) 2.61 cm (2 - 3.8) LV FS (2D) 37.36 % - EF Teichholz (2D) 67.78 % - Ao root diameter (2D) 3.66 cm (2 - 3.7) Volumes/Mass Name Value Normal Range LA ESV SP 4CH (A/L) 47.43 ml - LA ESV SP 2CH (A/L) 49.43 ml - LA ESV BP (A/L) 50.34 ml - LA ESV BP (A/L) index 25.42 ml/m2 - LA ESV SP 4CH (MOD) 43.41 ml - LA ESV SP 2CH (MOD) 46.74 ml - LA ESV BP (MOD) 46.78 ml - LA ESV BP (MOD) index 23.63 ml/m2 - Diastolic/Systolic Function Name Value Normal Range MV E-wave Vmax 0.7 m/sec - MV deceleration time 237.63 msec - MV A-wave Vmax 0.85 m/sec - MV E:A ratio 0.82 ratio - Aortic Valve Name Value Normal Range AV Vmax 1.4 m/sec - AV VTI 24.22 cm - AV peak gradient 7.8 mmHg - AV mean gradient 4.66 mmHg - LVOT diameter 2.1 cm - LVOT Vmax 1.24 m/sec - LVOT VTI 28.19 cm - LVOT peak gradient 6.15 mmHg - LVOT mean gradient 3.55 mmHg - SV LVOT 97.55 ml - KETURAH (continuity Vmax) 3.07 cm2 - KETURAH (continuity VTI) 4.03 cm2 - AR PHT 535.67 msec - AR peak gradient 64.79 mmHg - Tricuspid Valve Name Value Normal Range TR Vmax 2.13 m/sec - TR peak gradient 18 mmHg - RAP 3 mmHg - RVSP 21 mmHg - IVC diameter 1.81 cm (1.2 - 2.3) Pulmonic Valve/Qp:Qs Name Value Normal Range PV Vmax 1.06 m/sec - PV peak gradient 4.47 mmHg - PV acceleration time 133.21 msec - Akhtar/IV: Voiding Method Urinal IV Catheter Type [Left INT / Saline Lock Antecubital] Active Medications - Current Medications Current Medications: Generic Name Dose Route Start Last Admin Trade Name Freq PRN Reason Stop Dose Admin Acetaminophen 650 mg 01/30/20 02:02 Tylenol [place] Q4H PRN Fever >101 Amlodipine Besylate 10 mg 01/30/20 10:00 01/31/20 09:01 Amlodipine PO 10 mg DAILY MATEUSZ Administration Aspirin 325 mg 01/30/20 10:00 01/31/20 09:01 Aspirin PO 325 mg QDAY MATEUSZ Administration Atorvastatin Calcium 40 mg 01/30/20 10:00 01/31/20 09:01 Lipitor PO 40 mg QDAY MATEUSZ Administration Dextrose 0 ml 01/30/20 02:05 D50w (25gm) Syringe IV Q30MIN PRN Hypoglycemia Protocol Insulin Human Regular 0 units 01/30/20 07:30 01/31/20 09:00 Humulin R SUB-Q Not Given AC MATEUSZ Protocol Insulin Human Regular 0 units 01/30/20 22:00 01/30/20 21:18 Humulin R SUB-Q Not Given QHS MATEUSZ Protocol Lisinopril 40 mg 01/30/20 10:00 01/31/20 09:01 Zestril PO 40 mg QDAY MATEUSZ Administration Ondansetron HCl 4 mg 01/30/20 02:02 Zofran IV Q8H PRN Nausea And Vomiting
[2020-01-31] MEDS: hydrALAZINE 20 MG/1 ML INJ IV PRN (22:44)
[2020-01-31] MEDS: ZOLPIDEM 5 MG TAB PO PRN (23:42)
[2020-02-01] MEDS: hydrALAZINE 20 MG/1 ML INJ IV PRN (05:17)
[2020-02-01] MEDS: INSULIN REGULAR, HUMAN 100 UNITS/1 ML SUB-Q SCH ×5 (08:16→22:50)
--- NOTE | 2020-02-01 08:52 | Progress Note ---
Assessment and Plan Assessment and plan: Right basal ganglia lacunar infarct. Continue aspirin and statin. Follow-up CTA of neck and echocardiogram. Follow-up TSH T4. PT/OT. PT recommends subacute rehab. Hypertension. Continue antihypertensive medications. Diabetes mellitus type 2. Continue Accu-Cheks and sliding scale insulin. Disposition. Subacute rehab when bed available. 02/01/2020. Echocardiogram reveals mild concentric left ventricular hypertrophy with EF of 55 to 60%. Normal bubble study without evidence of intracardiac or intrapulmonary communication. Carotid Doppler negative. MRI reveals 2.2 cm acute infarct involving the left middle cerebellar peduncle and anterior left cerebellum. Also, multiple old basal ganglia lacunar infarcts and mild to moderate microvascular angiopathy. PT recommends [facility]. Continue PT/OT. Await placement. History Interval history: No new issues Hospitalist Physical - Constitutional Vitals: Temp Pulse Resp BP Pulse Ox 98.5 F 87 20 146/85 97 02/01/20 07:43 02/01/20 07:43 02/01/20 07:43 02/01/20 07:43 02/01/20 07:43 General appearance: Present: no acute distress. Absent: disheveled - EENT Eyes: Present: PERRL, EOM intact ENT: hearing intact, clear oral mucosa, dentition normal - Neck Neck: Present: supple, normal ROM - Respiratory Respiratory effort: normal Respiratory: bilateral: CTA - Cardiovascular Rhythm: regular Heart Sounds: Present: S1 & S2. Absent: gallop, rub - Extremities Extremities: no ischemia, No edema, Full ROM - Abdominal General gastrointestinal: soft, non-tender, non-distended, normal bowel sounds - Integumentary Integumentary: Present: clear, warm, dry - Neurologic Neurologic: CNII-XII intact, moves all extremities Results - Labs CBC & Chem 7: 01/29/20 23:06 01/29/20 23:06 Labs: Laboratory Last Values WBC 7.0 K/mm3 (4.5-11.0) 01/29/20 23:06 RBC 5.21 M/mm3 (3.65-5.03) H 01/29/20 23:06 Hgb 14.9 gm/dl (11.8-15.2) 01/29/20 23:06 Hct 42.6 % (35.5-45.6) 01/29/20 23:06 MCV 82 fl (84-94) L 01/29/20 23:06 MCH 29 pg (28-32) 01/29/20 23:06 MCHC 35 % (32-34) H 01/29/20 23:06 RDW 15.2 % (13.2-15.2) 01/29/20 23:06 Plt Count 332 K/mm3 (140-440) 01/29/20 23:06 Lymph % (Auto) 39.7 % (13.4-35.0) H 01/29/20 23:06 [place] % (Auto) 14.7 % (0.0-7.3) H 01/29/20 23:06 Eos % (Auto) 2.1 % (0.0-4.3) 01/29/20 23:06 Baso % (Auto) 1.1 % (0.0-1.8) 01/29/20 23:06 Lymph # 2.8 K/mm3 (1.2-5.4) 01/29/20 23:06 [place] # 1.0 K/mm3 (0.0-0.8) H 01/29/20 23:06 Eos # 0.1 K/mm3 (0.0-0.4) 01/29/20 23:06 Baso # 0.1 K/mm3 (0.0-0.1) 01/29/20 23:06 Seg Neutrophils % 42.4 % (40.0-70.0) 01/29/20 23:06 Seg Neutrophils # 3.0 K/mm3 (1.8-7.7) 01/29/20 23:06 PT 14.0 Sec. (12.2-14.9) 01/29/20 23:06 INR 1.07 (0.87-1.13) 01/29/20 23:06 APTT 27.5 Sec. (24.2-36.6) 01/29/20 23:06 Thrombin Time 15.8 Sec. (15.1-19.6) 01/29/20 23:06 Sodium 142 mmol/L (137-145) 01/29/20 23:06 Potassium 2.5 mmol/L (3.6-5.0) L* 01/29/20 23:06 Chloride 99.1 mmol/L (98-107) 01/29/20 23:06 Carbon Dioxide 27 mmol/L (22-30) 01/29/20 23:06 Anion Gap 18 mmol/L 01/29/20 23:06 BUN 20 mg/dL (9-20) 01/29/20 23:06 Creatinine 1.2 mg/dL (0.8-1.5) 01/29/20 23:06 Estimated GFR > 60 ml/min 01/29/20 23:06 BUN/Creatinine Ratio 17 % 01/29/20 23:06 Glucose 193 mg/dL (75-100) H 01/29/20 23:06 POC Glucose 113 (70-105) H 02/01/20 07:55 Calcium 10.5 mg/dL (8.4-10.2) H 01/29/20 23:06 Troponin T < 0.010 ng/mL (0.00-0.029) 01/29/20 23:06 Triglycerides 293 mg/dL (2-149) H 01/30/20 13:26 Cholesterol 162 mg/dL (50-199) 01/30/20 13:26 LDL Cholesterol Direct 105 mg/dL (50-130) 01/30/20 13:26 HDL Cholesterol 31 mg/dL (40-59) L 01/30/20 13:26 Cholesterol/HDL Ratio 5.22 % 01/30/20 13:26 Nasal Screen MRSA (PCR) Negative (Negative) 01/30/20 04:50 - Diagnostic Impressions Diagnostic Impressions: Echocardiogram 01/30/20 06:00 Transthoracic Echocardiogram Indication: Brain infarct BP: 185/94 HR: 72 Conclusions *Mild concentric left ventricular hypertrophy is observed. *Global left ventricular systolic function is normal. *The estimated ejection fraction is 55-60%. *Abnormal left ventricular diastolic filling is observed, consistent with impaired relaxation. *There is mild aortic regurgitation. *There is no pericardial effusion. *Normal bubble study without evidence of intracardiac or intrapulmonary communication Findings Left Ventricle: The left ventricular chamber size is normal. Mild concentric left ventricular hypertrophy is observed. Global left ventricular systolic function is normal. The estimated ejection fraction is 55-60%. Abnormal left ventricular diastolic filling is observed, consistent with impaired relaxation. Left Atrium: The left atrial chamber size is normal. Right Ventricle: The right ventricular cavity size is normal. The right ventricular global systolic function is normal. Right Atrium: The right atrial cavity size is normal. No atrial septal defected is demonstrated by agitated saline contrast. Aortic Valve: The aortic valve is trileaflet. There is mild aortic regurgitation. Mitral Valve: The mitral valve leaflets are mildly thickened. There is trace of mitral regurgitation. Tricuspid Valve: The tricuspid valve leaflets are normal. There is trace tricuspid regurgitation. The right ventricular systolic pressure is calculated at 21 mmHg. Pulmonic Valve: The pulmonic valve appears normal. There is no evidence of pulmonic regurgitation. Pericardium: There is no pericardial effusion. There is a minimial pericardial effusion. Aorta: There is no dilatation of the ascending aorta. There is no dilatation of the aortic root. Venous: The inferior vena cava appears normal in size. There is a greater than 50% respiratory change in the inferior vena cava dimension. Measurements Chambers 2D Name Value Normal Range IVSd (2D) 1.26 cm (0.6 - 1.1) LVPWd (2D) 1.28 cm (0.6 - 1.1) LVIDd (2D) 4.16 cm (3.7 - 5.6) LVIDs (2D) 2.61 cm (2 - 3.8) LV FS (2D) 37.36 % - EF Teichholz (2D) 67.78 % - Ao root diameter (2D) 3.66 cm (2 - 3.7) Volumes/Mass Name Value Normal Range LA ESV SP 4CH (A/L) 47.43 ml - LA ESV SP 2CH (A/L) 49.43 ml - LA ESV BP (A/L) 50.34 ml - LA ESV BP (A/L) index 25.42 ml/m2 - LA ESV SP 4CH (MOD) 43.41 ml - LA ESV SP 2CH (MOD) 46.74 ml - LA ESV BP (MOD) 46.78 ml - LA ESV BP (MOD) index 23.63 ml/m2 - Diastolic/Systolic Function Name Value Normal Range MV E-wave Vmax 0.7 m/sec - MV deceleration time 237.63 msec - MV A-wave Vmax 0.85 m/sec - MV E:A ratio 0.82 ratio - Aortic Valve Name Value Normal Range AV Vmax 1.4 m/sec - AV VTI 24.22 cm - AV peak gradient 7.8 mmHg - AV mean gradient 4.66 mmHg - LVOT diameter 2.1 cm - LVOT Vmax 1.24 m/sec - LVOT VTI 28.19 cm - LVOT peak gradient 6.15 mmHg - LVOT mean gradient 3.55 mmHg - SV LVOT 97.55 ml - KETURAH (continuity Vmax) 3.07 cm2 - KETURAH (continuity VTI) 4.03 cm2 - AR PHT 535.67 msec - AR peak gradient 64.79 mmHg - Tricuspid Valve Name Value Normal Range TR Vmax 2.13 m/sec - TR peak gradient 18 mmHg - RAP 3 mmHg - RVSP 21 mmHg - IVC diameter 1.81 cm (1.2 - 2.3) Pulmonic Valve/Qp:Qs Name Value Normal Range PV Vmax 1.06 m/sec - PV peak gradient 4.47 mmHg - PV acceleration time 133.21 msec - Akhtar/IV: Voiding Method Urinal IV Catheter Type [Right Hand] INT / Saline Lock IV Catheter Type [Left INT / Saline Lock Antecubital] Active Medications - Current Medications Current Medications: Generic Name Dose Route Start Last Admin Trade Name Freq PRN Reason Stop Dose Admin Acetaminophen 650 mg 01/30/20 02:02 Tylenol [place] Q4H PRN Fever >101 Amlodipine Besylate 10 mg 01/30/20 10:00 01/31/20 09:01 Amlodipine PO 10 mg DAILY MATEUSZ Administration Aspirin 325 mg 01/30/20 10:00 01/31/20 09:01 Aspirin PO 325 mg QDAY MATEUSZ Administration Atorvastatin Calcium 40 mg 01/30/20 10:00 01/31/20 09:01 Lipitor PO 40 mg QDAY MATEUSZ Administration Dextrose 0 ml 01/30/20 02:05 D50w (25gm) Syringe IV Q30MIN PRN Hypoglycemia Protocol Hydralazine HCl 10 mg 01/31/20 22:21 02/01/20 05:17 Apresoline IV 10 mg Q6H PRN Administration Blood Pressure Insulin Human Regular 0 units 01/30/20 07:30 02/01/20 08:16 Humulin R SUB-Q Not Given AC MATEUSZ Protocol Insulin Human Regular 0 units 01/30/20 22:00 01/31/20 21:46 Humulin R SUB-Q 1 units QHS MATEUSZ Administration Protocol Lisinopril 40 mg 05/01/20 10:00 01/31/20 09:01 Zestril PO 40 mg QDAY MATEUSZ Administration Ondansetron HCl 4 mg 01/30/20 02:02 Zofran IV Q8H PRN Nausea And Vomiting Zolpidem Tartrate 5 mg 01/31/20 22:21 01/31/20 23:42 Ambien PO 5 mg QHS PRN Administration Sleep
[2020-02-01] MEDS: ASPIRIN 325 MG TAB PO SCH (09:09)
[2020-02-01] MEDS: LISINOPRIL 40 MG TAB PO SCH (09:09)
[2020-02-01] MEDS: amLODIPine 10 MG TAB PO SCH (09:09)
[2020-02-01] MEDS: ZOLPIDEM 5 MG TAB PO PRN (18:35)
[2020-02-02] MEDS: hydrALAZINE 20 MG/1 ML INJ IV PRN (03:00)
[2020-02-02] MEDS: INSULIN REGULAR, HUMAN 100 UNITS/1 ML SUB-Q SCH ×4 (08:40→22:16)
--- NOTE | 2020-02-02 09:47 | Progress Note ---
Assessment and Plan Assessment and plan: Right basal ganglia lacunar infarct. Continue aspirin and statin. Follow-up CTA of neck and echocardiogram. Follow-up TSH T4. PT/OT. PT recommends subacute rehab. Hypertension. Continue antihypertensive medications. Diabetes mellitus type 2. Continue Accu-Cheks and sliding scale insulin. Disposition. Subacute rehab when bed available. 02/01/2020. Echocardiogram reveals mild concentric left ventricular hypertrophy with EF of 55 to 60%. Normal bubble study without evidence of intracardiac or intrapulmonary communication. Carotid Doppler negative. MRI reveals 2.2 cm acute infarct involving the left middle cerebellar peduncle and anterior left cerebellum. Also, multiple old basal ganglia lacunar infarcts and mild to moderate microvascular angiopathy. PT recommends KYE. Continue PT/OT. Await placement. 02/02/2020. Continue aspirin and Lipitor. PT/OT. Blood pressure control with lisinopril and Norvasc. Hydralazine PRN. Awaiting subacute rehab placement History Interval history: No new issues Hospitalist Physical - Constitutional Vitals: Temp Pulse Resp BP Pulse Ox 97.0 F L 68 18 141/84 95 02/02/20 07:22 02/02/20 07:22 02/02/20 07:22 02/02/20 07:22 02/02/20 07:22 General appearance: Present: no acute distress. Absent: disheveled - EENT Eyes: Present: PERRL, EOM intact ENT: hearing intact, clear oral mucosa, dentition normal - Neck Neck: Present: supple, normal ROM - Respiratory Respiratory effort: normal Respiratory: bilateral: CTA - Cardiovascular Rhythm: regular Heart Sounds: Present: S1 & S2. Absent: gallop, rub - Extremities Extremities: no ischemia, No edema, Full ROM - Abdominal General gastrointestinal: soft, non-tender, non-distended, normal bowel sounds - Integumentary Integumentary: Present: clear, warm, dry - Neurologic Neurologic: CNII-XII intact, moves all extremities Results - Labs CBC & Chem 7: 01/29/20 23:06 01/29/20 23:06 Labs: Laboratory Last Values WBC 7.0 K/mm3 (4.5-11.0) 01/29/20 23:06 RBC 5.21 M/mm3 (3.65-5.03) H 01/29/20 23:06 Hgb 14.9 gm/dl (11.8-15.2) 01/29/20 23:06 Hct 42.6 % (35.5-45.6) 01/29/20 23:06 MCV 82 fl (84-94) L 01/29/20 23:06 MCH 29 pg (28-32) 01/29/20 23:06 MCHC 35 % (32-34) H 01/29/20 23:06 RDW 15.2 % (13.2-15.2) 01/29/20 23:06 Plt Count 332 K/mm3 (140-440) 01/29/20 23:06 Lymph % (Auto) 39.7 % (13.4-35.0) H 01/29/20 23:06 [place] % (Auto) 14.7 % (0.0-7.3) H 01/29/20 23:06 Eos % (Auto) 2.1 % (0.0-4.3) 01/29/20 23:06 Baso % (Auto) 1.1 % (0.0-1.8) 01/29/20 23:06 Lymph # 2.8 K/mm3 (1.2-5.4) 01/29/20 23:06 [place] # 1.0 K/mm3 (0.0-0.8) H 01/29/20 23:06 Eos # 0.1 K/mm3 (0.0-0.4) 01/29/20 23:06 Baso # 0.1 K/mm3 (0.0-0.1) 01/29/20 23:06 Seg Neutrophils % 42.4 % (40.0-70.0) 01/29/20 23:06 Seg Neutrophils # 3.0 K/mm3 (1.8-7.7) 01/29/20 23:06 PT 14.0 Sec. (12.2-14.9) 01/29/20 23:06 INR 1.07 (0.87-1.13) 01/29/20 23:06 APTT 27.5 Sec. (24.2-36.6) 01/29/20 23:06 Thrombin Time 15.8 Sec. (15.1-19.6) 01/29/20 23:06 Sodium 142 mmol/L (137-145) 01/29/20 23:06 Potassium 2.5 mmol/L (3.6-5.0) L* 01/29/20 23:06 Chloride 99.1 mmol/L (98-107) 01/29/20 23:06 Carbon Dioxide 27 mmol/L (22-30) 01/29/20 23:06 Anion Gap 18 mmol/L 01/29/20 23:06 BUN 20 mg/dL (9-20) 01/29/20 23:06 Creatinine 1.2 mg/dL (0.8-1.5) 01/29/20 23:06 Estimated GFR > 60 ml/min 01/29/20 23:06 BUN/Creatinine Ratio 17 % 01/29/20 23:06 Glucose 193 mg/dL (75-100) H 01/29/20 23:06 POC Glucose 126 (70-105) H 02/02/20 07:38 Calcium 10.5 mg/dL (8.4-10.2) H 01/29/20 23:06 Troponin T < 0.010 ng/mL (0.00-0.029) 01/29/20 23:06 Triglycerides 293 mg/dL (2-149) H 01/30/20 13:26 Cholesterol 162 mg/dL (50-199) 01/30/20 13:26 LDL Cholesterol Direct 105 mg/dL (50-130) 01/30/20 13:26 HDL Cholesterol 31 mg/dL (40-59) L 01/30/20 13:26 Cholesterol/HDL Ratio 5.22 % 01/30/20 13:26 Nasal Screen MRSA (PCR) Negative (Negative) 01/30/20 04:50 - Diagnostic Impressions Diagnostic Impressions: Echocardiogram 01/30/20 06:00 Transthoracic Echocardiogram Indication: Brain infarct BP: 185/94 HR: 72 Conclusions *Mild concentric left ventricular hypertrophy is observed. *Global left ventricular systolic function is normal. *The estimated ejection fraction is 55-60%. *Abnormal left ventricular diastolic filling is observed, consistent with impaired relaxation. *There is mild aortic regurgitation. *There is no pericardial effusion. *Normal bubble study without evidence of intracardiac or intrapulmonary communication Findings Left Ventricle: The left ventricular chamber size is normal. Mild concentric left ventricular hypertrophy is observed. Global left ventricular systolic function is normal. The estimated ejection fraction is 55-60%. Abnormal left ventricular diastolic filling is observed, consistent with impaired relaxation. Left Atrium: The left atrial chamber size is normal. Right Ventricle: The right ventricular cavity size is normal. The right ventricular global systolic function is normal. Right Atrium: The right atrial cavity size is normal. No atrial septal defected is demonstrated by agitated saline contrast. Aortic Valve: The aortic valve is trileaflet. There is mild aortic regurgitation. Mitral Valve: The mitral valve leaflets are mildly thickened. There is trace of mitral regurgitation. Tricuspid Valve: The tricuspid valve leaflets are normal. There is trace tricuspid regurgitation. The right ventricular systolic pressure is calculated at 21 mmHg. Pulmonic Valve: The pulmonic valve appears normal. There is no evidence of pulmonic regurgitation. Pericardium: There is no pericardial effusion. There is a minimial pericardial effusion. Aorta: There is no dilatation of the ascending aorta. There is no dilatation of the aortic root. Venous: The inferior vena cava appears normal in size. There is a greater than 50% respiratory change in the inferior vena cava dimension. Measurements Chambers 2D Name Value Normal Range IVSd (2D) 1.26 cm (0.6 - 1.1) LVPWd (2D) 1.28 cm (0.6 - 1.1) LVIDd (2D) 4.16 cm (3.7 - 5.6) LVIDs (2D) 2.61 cm (2 - 3.8) LV FS (2D) 37.36 % - EF Teichholz (2D) 67.78 % - Ao root diameter (2D) 3.66 cm (2 - 3.7) Volumes/Mass Name Value Normal Range LA ESV SP 4CH (A/L) 47.43 ml - LA ESV SP 2CH (A/L) 49.43 ml - LA ESV BP (A/L) 50.34 ml - LA ESV BP (A/L) index 25.42 ml/m2 - LA ESV SP 4CH (MOD) 43.41 ml - LA ESV SP 2CH (MOD) 46.74 ml - LA ESV BP (MOD) 46.78 ml - LA ESV BP (MOD) index 23.63 ml/m2 - Diastolic/Systolic Function Name Value Normal Range MV E-wave Vmax 0.7 m/sec - MV deceleration time 237.63 msec - MV A-wave Vmax 0.85 m/sec - MV E:A ratio 0.82 ratio - Aortic Valve Name Value Normal Range AV Vmax 1.4 m/sec - AV VTI 24.22 cm - AV peak gradient 7.8 mmHg - AV mean gradient 4.66 mmHg - LVOT diameter 2.1 cm - LVOT Vmax 1.24 m/sec - LVOT VTI 28.19 cm - LVOT peak gradient 6.15 mmHg - LVOT mean gradient 3.55 mmHg - SV LVOT 97.55 ml - KETURAH (continuity Vmax) 3.07 cm2 - KETURAH (continuity VTI) 4.03 cm2 - AR PHT 535.67 msec - AR peak gradient 64.79 mmHg - Tricuspid Valve Name Value Normal Range TR Vmax 2.13 m/sec - TR peak gradient 18 mmHg - RAP 3 mmHg - RVSP 21 mmHg - IVC diameter 1.81 cm (1.2 - 2.3) Pulmonic Valve/Qp:Qs Name Value Normal Range PV Vmax 1.06 m/sec - PV peak gradient 4.47 mmHg - PV acceleration time 133.21 msec - Akhtar/IV: Voiding Method Urinal IV Catheter Type [Left Forearm INT / Saline Lock ] IV Catheter Type [Right Hand] INT / Saline Lock IV Catheter Type [Left INT / Saline Lock Antecubital] Active Medications - Current Medications Current Medications: Generic Name Dose Route Start Last Admin Trade Name Freq PRN Reason Stop Dose Admin Acetaminophen 650 mg 01/30/20 02:02 Tylenol CO Q4H PRN Fever >101 Amlodipine Besylate 10 mg 01/30/20 10:00 02/01/20 09:09 Amlodipine PO 10 mg DAILY MATEUSZ Administration Aspirin 325 mg 01/30/20 10:00 02/01/20 09:09 Aspirin PO 325 mg QDAY MATEUSZ Administration Atorvastatin Calcium 40 mg 01/30/20 10:00 02/01/20 09:09 Lipitor PO 40 mg QDAY MATEUSZ Administration Dextrose 0 ml 01/30/20 02:05 D50w (25gm) Syringe IV Q30MIN PRN Hypoglycemia Protocol Hydralazine HCl 10 mg 01/31/20 22:21 02/02/20 03:00 Apresoline IV 10 mg Q6H PRN Administration Blood Pressure Insulin Human Regular 0 units 01/30/20 07:30 02/02/20 08:40 Humulin R SUB-Q Not Given AC [facility] Protocol Insulin Human Regular 0 units 01/30/20 22:00 02/01/20 22:50 Humulin R SUB-Q Not Given QHS [facility] Protocol Lisinopril 40 mg 01/30/20 10:00 02/01/20 09:09 Zestril PO 40 mg QDAY MATEUSZ Administration Ondansetron HCl 4 mg 01/30/20 02:02 Zofran IV Q8H PRN Nausea And Vomiting Zolpidem Tartrate 5 mg 01/31/20 22:21 02/01/20 18:35 Ambien PO 5 mg QHS PRN Administration Sleep
[2020-02-02] MEDS: ASPIRIN 325 MG TAB PO SCH (09:53)
[2020-02-02] MEDS: LISINOPRIL 40 MG TAB PO SCH (09:54)
[2020-02-02] MEDS: amLODIPine 10 MG TAB PO SCH (09:54)
--- NOTE | 2020-02-02 11:46 | Consultation ---
History of Present Illness - Reason for Consult Consult date: 02/02/20 Reason for consult: MHE Requesting physician: MALI JAVIER - Chief Complaint Chief complaint: Altered mental status - History of Present Psychiatric Illness Per Admission HPI: Patient is a 54-year-old male with a past medical history of hypertension diabetes who is presenting with 2 days of neurological symptoms. Patient states that approximately 2 days ago he started having gait imbalance. Patient states that he felt as though he was falling to the left. Patient also was having some difficulty with speaking. Patient states that he has left facial numbness. He denies any focal weakness to his arms or legs. Patient denies nausea vomiting diarrhea chest pain shortness of breath fevers or chills at this time. HPI Patient is a 54-year-old homeless disabled male with past medical history of diabetes, and CVA with no pertinent past psychiatric history who presented to the ER for stroke like symptoms evaluation was admitted to the medical floor with a psychiatric consult for altered mental status. Patient is alert to time place and person, patient is able to correctly identify objects in the room regarding the shapes and colors. Patient currently identifies [facility] governor and [facility] president. Patient describes his mood today that he feels pretty miserable because he is not been able to see his son. Patient denies any auditory or visual hallucination and also denies any suicidal or homicidal thoughts. Patient was given specific words to remember which were green, pencil which he was able to recollect without any difficulty after a period of time. Patient admits to drug use says he has tried both cocaine meth and almost everything. Denies any past known psychiatric diagnosis. Does endorse that he has a sister currently living in [place] that he is in contact with but is currently homeless with his son. Patient reports recent homelessness and disability was due to stroke. PAST PSYCHIATRIC HISTORY: Diagnoses: None reported Suicide attempts or Self-harm behavior: None reported Prior psychiatric hospitalizations: None reported Substance Abuse history: Cocaine, meth "everything he says" Previous psychiatric medications tried: None reported Outpatient treatment: None reported PAST MEDICAL HISTORY: CVA, DM Family Psychiatric History None reported or documented SOCIAL HISTORY Marital Status: Single Living Arrangements: Homeless Employment Status: Disabled Access to guns/weapons: None reported Education: High school graduate History of Abuse: None reported Legal History: None reported REVIEW OF SYSTEMS Constitutional: Negative for weight loss ENT: Negative for stridor Respiratory: Negative for cough or hemoptysis History of CVA with residual left sided weakness All other systems reviewed and are negative MENTAL STATUS EXAMINATION General Appearance and Behavior: Age appropriate, disheveled fair hygiene, wearing appropriate clothes, lying in bed, good contact, cooperative with questioning Cooperation: Participating/engaged Psychomotor Behavior: unremarkable and within normal limits Mood: Good Affect and affective range: euthymic Thought Process: Fluent/Logical, Tangential, Circumstantial Thought Content: Within reality, Poverty, Obsessions, Flight of ideas, Illogical, Grandiose, Phobia Paranoid, Ideas of reference, Hallucinations incl uding auditory, visual, tactile and olfactory, Hopelessness, Helplessness, Phobia and Paranoid Speech: paucity of speech Intellectual Functioning: Average Suicidal Ideation: Denies SI Homicidal Ideation: Denies HI Impulse Control: Impaired Insight and Judgment: Normal insight and judgment Memory: Short term memory intact, (history of CVA) Attention: Divided attention intact and Divided attention impaired Orientation: Alert, oriented. Mini mental exam score - 21-24 Assessment and Plan - Psychiatric problem (1) Cocaine use disorder, severe, dependence Current Visit: Yes Status: Acute RECOMMENDATIONS I do not see any acute disorientation requiring psychological intervention at this moment. Will follow up with patient tomorrow to re-evaluate for stability and nurse reviews throughout the day today. MEDICATIONS: Melatonin and [place] 3 fatty acids for brain health. Risks, benefits and alternatives of medications discussed with the patient, questions answered and consent obtained from patient. PSYCHOTHERAPY: Supportive psychotherapy provided MEDICAL: Per primary team DELIRIUM PRECAUTIONS: Please re-orient patient frequently, keep lights on during the day, and minimize benzodiazepines and opiates as these medications could wo rsen patient's confusion. HABITAT BIOLOGIST: Per Medical team DISPOSITION: Per primary team; no indication for acute inpatient psychiatric hospitalization at this time LEGAL STATUS: Voluntary FOLLOW-UP: Will follow tomorrow for re-evaluation. Thank you for the consult. Please contact with any questions and/or concerns. Medications and Allergies Allergies Allergy/AdvReac Type Severity Reaction Status Date / Time No Known Allergies Allergy Unverified 01/29/20 23:01 Home Medications Medication Instructions Recorded Confirmed Last Taken Type Atorvastatin [Lipitor Tab] 40 mg PO QDAY 01/30/20 01/30/20 Unknown History Metformin HCl [metFORMIN] 1,000 mg PO QDAY 01/30/20 01/30/20 Unknown History amLODIPine [Norvasc] 10 mg PO DAILY 01/30/20 01/30/20 Unknown History lisinopriL [Zestril TAB] 40 mg PO QDAY 01/30/20 01/30/20 Unknown History Active Meds: Active Medications Acetaminophen (Tylenol) 650 mg IN Q4H PRN PRN Reason: Fever >101 Amlodipine Besylate (Amlodipine) 10 mg PO DAILY [facility] Last Admin: 02/02/20 09:54 Dose: 10 mg Documented by: Aspirin (Aspirin) 325 mg PO QDAY [facility] Last Admin: 02/02/20 09:53 Dose: 325 mg Documented by: Atorvastatin Calcium (Lipitor) 40 mg PO QDAY [facility] Last Admin: 02/02/20 09:53 Dose: 40 mg Documented by: Dextrose (D50w (25gm) Syringe) 0 ml IV Q30MIN PRN; Protocol PRN Reason: Hypoglycemia Hydralazine HCl (Apresoline) 10 mg IV Q6H PRN PRN Reason: Blood Pressure Last Admin: 02/02/20 03:00 Dose: 10 mg Documented by: Insulin Human Regular (Humulin R) 0 units SUB-Q [facility]; Protocol Last Admin: 02/02/20 08:40 Dose: Not Given Documented by: Insulin Human Regular (Humulin R) 0 units SUB-Q QHS [facility]; Protocol Last Admin: 02/01/20 22:50 Dose: Not Given Documented by: Lisinopril (Zestril) 40 mg PO QDAY [facility] Last Admin: 02/02/20 09:54 Dose: 40 mg Documented by: Ondansetron HCl (Zofran) 4 mg IV Q8H PRN PRN Reason: Nausea And Vomiting Zolpidem Tartrate (Ambien) 5 mg PO QHS PRN PRN Reason: Sleep Last Admin: 02/01/20 18:35 Dose: 5 mg Documented by: Mental Status Exam - Vital signs Last Vital Signs Temp 98.0 F 02/02/20 11:08 Pulse 71 02/02/20 11:08 Resp 16 02/02/20 11:08 BP 143/71 02/02/20 11:08 Pulse Ox 98 02/02/20 11:08 Results Result Diagrams: 01/29/20 23:06 01/29/20 23:06 Abnormal lab results 02/01/20 02/01/20 02/02/20 Range/Units 16:51 22:33 07:38 POC Glucose 148 H 109 H 126 H (70-105) All other labs normal. Assessment and Plan - Psychiatric problem (1) Cocaine use disorder, severe, dependence Current Visit: Yes Status: Acute
[2020-02-02] MEDS: OMEGA-3 FATTY ACIDS/FISH OIL 1 GRAM CAP PO SCH ×3 (12:52→22:16)
[2020-02-02 19:10] LABS: Benzodiazepines Screen,Urine PRESUMPTIVE NEGATIVE; Cannabinoid Screen,Urine PRESUMPTIVE NEGATIVE; Cocaine Screen,Urine PRESUMPTIVE NEGATIVE; Methadone Screen,Urine PRESUMPTIVE NEGATIVE; Opiate Screen,Urine PRESUMPTIVE NEGATIVE
[2020-02-02 19:33] LABS: Amphetamine Screen,Urine PRESUMPTIVE POSITIVE
[2020-02-02] MEDS: MELATONIN 5 MG TAB PO PRN (22:16)
[2020-02-03] MEDS: hydrALAZINE 20 MG/1 ML INJ IV PRN (03:10)
[2020-02-03] MEDS: INSULIN REGULAR, HUMAN 100 UNITS/1 ML SUB-Q SCH ×4 (09:48→21:36)
--- NOTE | 2020-02-03 10:42 | Progress Note ---
Assessment and Plan Assessment and plan: Right basal ganglia lacunar infarct. Continue aspirin and statin. Follow-up CTA of neck and echocardiogram. Follow-up TSH T4. PT/OT. PT recommends subacute rehab. Hypertension. Continue antihypertensive medications. Diabetes mellitus type 2. Continue Accu-Cheks and sliding scale insulin. Disposition. Subacute rehab when bed available. 02/01/2020. Echocardiogram reveals mild concentric left ventricular hypertrophy with EF of 55 to 60%. Normal bubble study without evidence of intracardiac or intrapulmonary communication. Carotid Doppler negative. MRI reveals 2.2 cm acute infarct involving the left middle cerebellar peduncle and anterior left cerebellum. Also, multiple old basal ganglia lacunar infarcts and mild to moderate microvascular angiopathy. PT recommends KYE. Continue PT/OT. Await placement. 02/02/2020. Continue aspirin and Lipitor. PT/OT. Blood pressure control with lisinopril and Norvasc. Hydralazine PRN. Awaiting subacute rehab placement 02/03/2020 Patient with acute right basal ganglia infarct. patient needs acutee rehab placement. manager market research says patient needs covid-19 test. Ordered. History Interval history: left sided weakness Hospitalist Physical - Physical exam Narrative exam: GEN: Not in acute distress, obese, lying in bed HEENT: Normocephalic, atraumatic, Neck: supple, No JVD Lungs: Clear to auscultation bilaterally, heart;S1 and S2 reg, no murmurs, rubs or gallop Abd:soft, non tender, non distended, normal bowel sounds, Ext: No edema, no clubbing, no cyanosis, Neuro: Awake,alert,left sided weakness Psych. Calm. appropriate - Constitutional Vitals: Temp Pulse Resp BP Pulse Ox 97.0 F L 77 16 145/78 93 02/03/20 07:32 02/03/20 07:32 02/03/20 07:32 02/03/20 07:32 02/03/20 07:32 General appearance: Present: no acute distress. Absent: disheveled Results - Labs CBC & Chem 7: 01/29/20 23:06 01/29/20 23:06 Labs: Laboratory Last Values WBC 7.0 K/mm3 (4.5-11.0) 01/29/20 23:06 RBC 5.21 M/mm3 (3.65-5.03) H 01/29/20 23:06 Hgb 14.9 gm/dl (11.8-15.2) 01/29/20 23:06 Hct 42.6 % (35.5-45.6) 01/29/20 23:06 MCV 82 fl (84-94) L 01/29/20 23:06 MCH 29 pg (28-32) 01/29/20 23:06 MCHC 35 % (32-34) H 01/29/20 23:06 RDW 15.2 % (13.2-15.2) 01/29/20 23:06 Plt Count 332 K/mm3 (140-440) 01/29/20 23:06 Lymph % (Auto) 39.7 % (13.4-35.0) H 01/29/20 23:06 [place] % (Auto) 14.7 % (0.0-7.3) H 01/29/20 23:06 Eos % (Auto) 2.1 % (0.0-4.3) 01/29/20 23:06 Baso % (Auto) 1.1 % (0.0-1.8) 01/29/20 23:06 Lymph # 2.8 K/mm3 (1.2-5.4) 01/29/20 23:06 [place] # 1.0 K/mm3 (0.0-0.8) H 01/29/20 23:06 Eos # 0.1 K/mm3 (0.0-0.4) 01/29/20 23:06 Baso # 0.1 K/mm3 (0.0-0.1) 01/29/20 23:06 Seg Neutrophils % 42.4 % (40.0-70.0) 01/29/20 23:06 Seg Neutrophils # 3.0 K/mm3 (1.8-7.7) 01/29/20 23:06 PT 14.0 Sec. (12.2-14.9) 01/29/20 23:06 INR 1.07 (0.87-1.13) 01/29/20 23:06 APTT 27.5 Sec. (24.2-36.6) 01/29/20 23:06 Thrombin Time 15.8 Sec. (15.1-19.6) 01/29/20 23:06 Sodium 142 mmol/L (137-145) 01/29/20 23:06 Potassium 2.5 mmol/L (3.6-5.0) L* 01/29/20 23:06 Chloride 99.1 mmol/L (98-107) 01/29/20 23:06 Carbon Dioxide 27 mmol/L (22-30) 01/29/20 23:06 Anion Gap 18 mmol/L 01/29/20 23:06 BUN 20 mg/dL (9-20) 01/29/20 23:06 Creatinine 1.2 mg/dL (0.8-1.5) 01/29/20 23:06 Estimated GFR > 60 ml/min 01/29/20 23:06 BUN/Creatinine Ratio 17 % 01/29/20 23:06 Glucose 193 mg/dL (75-100) H 01/29/20 23:06 POC Glucose 125 (70-105) H 02/03/20 07:49 Calcium 10.5 mg/dL (8.4-10.2) H 01/29/20 23:06 Troponin T < 0.010 ng/mL (0.00-0.029) 01/29/20 23:06 Triglycerides 293 mg/dL (2-149) H 01/30/20 13:26 Cholesterol 162 mg/dL (50-199) 01/30/20 13:26 LDL Cholesterol Direct 105 mg/dL (50-130) 01/30/20 13:26 HDL Cholesterol 31 mg/dL (40-59) L 01/30/20 13:26 Cholesterol/HDL Ratio 5.22 % 01/30/20 13:26 Nasal Screen MRSA (PCR) Negative (Negative) 01/30/20 04:50 Urine Opiates Screen Presumptive negative 02/02/20 Unknown Urine Methadone Screen Presumptive negative 02/02/20 Unknown Ur Barbiturates Screen Presumptive negative 02/02/20 Unknown Ur Phencyclidine Scrn Presumptive negative 02/02/20 Unknown Ur Amphetamines Screen Presumptive positive 02/02/20 Unknown U Benzodiazepines Scrn Presumptive negative 02/02/20 Unknown Urine Cocaine Screen Presumptive negative 02/02/20 Unknown U Marijuana (THC) Screen Presumptive negative 02/02/20 Unknown Drugs of Abuse Note Disclamer 02/02/20 Unknown - Diagnostic Impressions Diagnostic Impressions: Echocardiogram 01/30/20 06:00 Transthoracic Echocardiogram Indication: Brain infarct BP: 185/94 HR: 72 Conclusions *Mild concentric left ventricular hypertrophy is observed. *Global left ventricular systolic function is normal. *The estimated ejection fraction is 55-60%. *Abnormal left ventricular diastolic filling is observed, consistent with impaired relaxation. *There is mild aortic regurgitation. *There is no pericardial effusion. *Normal bubble study without evidence of intracardiac or intrapulmonary communication Findings Left Ventricle: The left ventricular chamber size is normal. Mild concentric left ventricular hypertrophy is observed. Global left ventricular systolic function is normal. The estimated ejection fraction is 55-60%. Abnormal left ventricular diastolic filling is observed, consistent with impaired relaxation. Left Atrium: The left atrial chamber size is normal. Right Ventricle: The right ventricular cavity size is normal. The right ventricular global systolic function is normal. Right Atrium: The right atrial cavity size is normal. No atrial septal defected is demonstrated by agitated saline contrast. Aortic Valve: The aortic valve is trileaflet. There is mild aortic regurgitation. Mitral Valve: The mitral valve leaflets are mildly thickened. There is trace of mitral regurgitation. Tricuspid Valve: The tricuspid valve leaflets are normal. There is trace tricuspid regurgitation. The right ventricular systolic pressure is calculated at 21 mmHg. Pulmonic Valve: The pulmonic valve appears normal. There is no evidence of pulmonic regurgitation. Pericardium: There is no pericardial effusion. There is a minimial pericardial effusion. Aorta: There is no dilatation of the ascending aorta. There is no dilatation of the aortic root. Venous: The inferior vena cava appears normal in size. There is a greater than 50% respiratory change in the inferior vena cava dimension. Measurements Chambers 2D Name Value Normal Range IVSd (2D) 1.26 cm (0.6 - 1.1) LVPWd (2D) 1.28 cm (0.6 - 1.1) LVIDd (2D) 4.16 cm (3.7 - 5.6) LVIDs (2D) 2.61 cm (2 - 3.8) LV FS (2D) 37.36 % - EF Teichholz (2D) 67.78 % - Ao root diameter (2D) 3.66 cm (2 - 3.7) Volumes/Mass Name Value Normal Range LA ESV SP 4CH (A/L) 47.43 ml - LA ESV SP 2CH (A/L) 49.43 ml - LA ESV BP (A/L) 50.34 ml - LA ESV BP (A/L) index 25.42 ml/m2 - LA ESV SP 4CH (MOD) 43.41 ml - LA ESV SP 2CH (MOD) 46.74 ml - LA ESV BP (MOD) 46.78 ml - LA ESV BP (MOD) index 23.63 ml/m2 - Diastolic/Systolic Function Name Value Normal Range MV E-wave Vmax 0.7 m/sec - MV deceleration time 237.63 msec - MV A-wave Vmax 0.85 m/sec - MV E:A ratio 0.82 ratio - Aortic Valve Name Value Normal Range AV Vmax 1.4 m/sec - AV VTI 24.22 cm - AV peak gradient 7.8 mmHg - AV mean gradient 4.66 mmHg - LVOT diameter 2.1 cm - LVOT Vmax 1.24 m/sec - LVOT VTI 28.19 cm - LVOT peak gradient 6.15 mmHg - LVOT mean gradient 3.55 mmHg - SV LVOT 97.55 ml - KETURAH (continuity Vmax) 3.07 cm2 - KETURAH (continuity VTI) 4.03 cm2 - AR PHT 535.67 msec - AR peak gradient 64.79 mmHg - Tricuspid Valve Name Value Normal Range TR Vmax 2.13 m/sec - TR peak gradient 18 mmHg - RAP 3 mmHg - RVSP 21 mmHg - IVC diameter 1.81 cm (1.2 - 2.3) Pulmonic Valve/Qp:Qs Name Value Normal Range PV Vmax 1.06 m/sec - PV peak gradient 4.47 mmHg - PV acceleration time 133.21 msec - Akhtar/IV: Voiding Method Urinal IV Catheter Type [Left Forearm INT / Saline Lock ] IV Catheter Type [Right Hand] INT / Saline Lock IV Catheter Type [Left INT / Saline Lock Antecubital] Active Medications - Current Medications Current Medications: Generic Name Dose Route Start Last Admin Trade Name Freq PRN Reason Stop Dose Admin Acetaminophen 650 mg 01/30/20 02:02 Tylenol [place] Q4H PRN Fever >101 Amlodipine Besylate 10 mg 01/30/20 10:00 02/02/20 09:54 Amlodipine PO 10 mg DAILY MATEUSZ Administration Aspirin 325 mg 01/30/20 10:00 02/02/20 09:53 Aspirin PO 325 mg QDAY MATEUSZ Administration Atorvastatin Calcium 40 mg 01/30/20 10:00 02/02/20 09:53 Lipitor PO 40 mg QDAY MATEUSZ Administration Dextrose 0 ml 01/30/20 02:05 D50w (25gm) Syringe IV Q30MIN PRN Hypoglycemia Protocol Fish Oil 2,000 mg 02/02/20 12:00 02/02/20 22:16 Fish Oil PO 2,000 mg BID MATEUSZ Administration Hydralazine HCl 10 mg 01/31/20 22:21 02/03/20 03:10 Apresoline IV 10 mg Q6H PRN Administration Blood Pressure Insulin Human Regular 0 units 01/30/20 07:30 02/03/20 09:48 Humulin R SUB-Q Not Given AC [facility] Protocol Insulin Human Regular 0 units 01/30/20 22:00 02/02/20 22:16 Humulin R SUB-Q 1 units QHS MATEUSZ Administration Protocol Lisinopril 40 mg 01/30/20 10:00 02/02/20 09:54 Zestril PO 40 mg QDAY MATEUSZ Administration Melatonin 5 mg 02/02/20 11:47 02/02/20 22:16 Melatonin PO 5 mg QHS PRN Administration Sleep Ondansetron HCl 4 mg 01/30/20 02:02 Zofran IV Q8H PRN Nausea And Vomiting Zolpidem Tartrate 5 mg 01/31/20 22:21 02/01/20 18:35 Ambien PO 5 mg QHS PRN Administration Sleep
--- NOTE | 2020-02-03 10:55 | Progress Note ---
Subjective - Reason for Consult Consult date: 02/03/20 Reason for consult: Depressed Mood Requesting physician: MALI JAVIER - Chief Complaint Chief complaint: Per Floor Nurse note: Pt is awake, alert and oriented x2. Bilateral weakness noted. Fall precautions in place and bed alarm is on. Pt reoriented to time and place and cll bazan in reach Per Psych Provider Patient was seen by me this morning in room this a.m. Patient reports he was happy because he was able to speak with his son yesterday and feels so much better speaking to him. Remembers all 3 words that was given to him from yesterday which with [place], green and pencil. Patient denies any SI HI or auditory or visual hallucination at this moment. MENTAL STATUS EXAMINATION General Appearance and Behavior: Age appropriate, disheveled fair hygiene, wearing appropriate clothes, lying in bed, good contact, cooperative with questioning Cooperation: Participating/engaged Psychomotor Behavior: unremarkable and within normal limits Mood: Good Affect and affective range: congruent with mood Thought Process: Fluent/Logica Thought Content: Within reality Speech: paucity of speech Intellectual Functioning: Average Suicidal Ideation: Denies SI Homicidal Ideation: Denies HI Impulse Control: Unimpaired Insight and Judgment: Normal insight and judgment Memory: Short term memory intact, (history of CVA) Attention: Normal Orientation: Alert, oriented. Mini mental exam score - 21-24 Assessment and Plan - Psychiatric problem (1) Cocaine use disorder, severe, dependence Current Visit: Yes Status: Acute RECOMMENDATIONS No alerted mental status. Noted, patient remembered all 3 words from yesterday. Concern for depression. Recommend outpt Psych F/U. MEDICATIONS: Melatonin and [place] 3 fatty acids for brain health. Risks, benefits and alternatives of medications discussed with the patient, questions answered and consent obtained from patient. PSYCHOTHERAPY: Supportive psychotherapy provided MEDICAL: Per primary team DELIRIUM PRECAUTIONS: Please re-orient patient frequently, keep lights on during the day, and minimize benzodiazepines and opiates as these medications could worsen patient's confusion. DEVICE SALES CONSULTANT: Per Medical team DISPOSITION: Per primary team; no indication for acute inpatient psychiatric hospitalization at this time LEGAL STATUS: Voluntary FOLLOW-UP: Will Sign off Thank you for the consult. Please contact with any questions and/or concerns. Mental Status Exam - Vital signs Last Vital Signs Temp 97.0 F L 02/03/20 07:32 Pulse 77 02/03/20 07:32 Resp 16 02/03/20 07:32 BP 145/78 02/03/20 07:32 Pulse Ox 93 02/03/20 07:32 Assessment and Plan - Patient Problems (1) Cocaine use disorder, severe, dependence Current Visit: Yes Status: Acute
[2020-02-03] MEDS: OMEGA-3 FATTY ACIDS/FISH OIL 1 GRAM CAP PO SCH ×2 (11:38→21:02)
[2020-02-03] MEDS: ASPIRIN 325 MG TAB PO SCH (11:39)
[2020-02-03] MEDS: LISINOPRIL 40 MG TAB PO SCH (11:39)
[2020-02-03] MEDS: amLODIPine 10 MG TAB PO SCH (11:39)
[2020-02-03 15:24] LABS: Hematocrit 42.7 % (35.5-45.6); Hemoglobin 14.6 gm/dl (11.8-15.2); Mean Corpuscular HGB Conc 34 % (32-34); Mean Corpuscular Volume 83 fl (84-94); Platelet Count 343 K/mm3 (140-440); Red Blood Count 5.16 M/mm3 (3.65-5.03); Red Cell Distribution Width 14.8 % (13.2-15.2)
[2020-02-03 15:45] LABS: BUN/Creatinine Ratio 18; Blood Urea Nitrogen 18 mg/dL (9-20); Calcium 9.3 mg/dL (8.4-10.2); Hemolysis Index 6
[2020-02-03] MEDS: ZOLPIDEM 5 MG TAB PO PRN (21:02)
[2020-02-03] MEDS: MELATONIN 5 MG TAB PO PRN (23:40)
[2020-02-03] MEDS: ACETAMINOPHEN 325 MG TAB PO PRN (23:52)
[2020-02-04] MEDS: hydrALAZINE 20 MG/1 ML INJ IV PRN ×2 (06:14→22:18)
[2020-02-04] MEDS: INSULIN REGULAR, HUMAN 100 UNITS/1 ML SUB-Q SCH ×4 (08:42→22:17)
[2020-02-04] MEDS: LISINOPRIL 40 MG TAB PO SCH (09:51)
[2020-02-04] MEDS: amLODIPine 10 MG TAB PO SCH (09:51)
[2020-02-04] MEDS: ASPIRIN 325 MG TAB PO SCH (09:51)
[2020-02-04] MEDS: OMEGA-3 FATTY ACIDS/FISH OIL 1 GRAM CAP PO SCH ×2 (09:51→23:44)
--- NOTE | 2020-02-04 10:00 | Progress Note ---
Assessment and Plan Assessment and plan: Right basal ganglia lacunar infarct. Continue aspirin and statin. Follow-up CTA of neck and echocardiogram. Follow-up TSH T4. PT/OT. PT recommends subacute rehab. Hypertension. Continue antihypertensive medications. Diabetes mellitus type 2. Continue Accu-Cheks and sliding scale insulin. Disposition. Subacute rehab when bed available. 02/01/2020. Echocardiogram reveals mild concentric left ventricular hypertrophy with EF of 55 to 60%. Normal bubble study without evidence of intracardiac or intrapulmonary communication. Carotid Doppler negative. MRI reveals 2.2 cm acute infarct involving the left middle cerebellar peduncle and anterior left cerebellum. Also, multiple old basal ganglia lacunar infarcts and mild to moderate microvascular angiopathy. PT recommends KYE. Continue PT/OT. Await placement. 02/02/2020. Continue aspirin and Lipitor. PT/OT. Blood pressure control with lisinopril and Norvasc. Hydralazine PRN. Awaiting subacute rehab placement 02/03/2020 Patient with acute right basal ganglia infarct. patient needs acutee rehab placement. technical delivery manager says patient needs covid-19 test. Ordered. 02/04/20 Patient with acute ischemic stroke. Awaiting placement at acute rehab. Covid-19 test ordered ,awaiting. History Interval history: left sided weakness Hospitalist Physical - Physical exam Narrative exam: GEN: Not in acute distress, obese, lying in bed HEENT: Normocephalic, atraumatic, Neck: supple, No JVD Lungs: Clear to auscultation bilaterally, heart;S1 and S2 reg, no murmurs, rubs or gallop Abd:soft, non tender, non distended, normal bowel sounds, Ext: No edema, no clubbing, no cyanosis, Neuro: Awake,alert,left sided weakness Psych. Calm. appropriate - Constitutional Vitals: Temp Pulse Resp BP Pulse Ox 97.6 F 75 18 157/87 98 02/04/20 07:37 02/04/20 07:37 02/04/20 07:37 02/04/20 07:37 02/04/20 07:37 General appearance: Present: no acute distress Results - Labs CBC & Chem 7: 02/03/20 14:54 02/04/20 08:28 Labs: Laboratory Last Values WBC 8.0 K/mm3 (4.5-11.0) 02/03/20 14:54 RBC 5.16 M/mm3 (3.65-5.03) H 02/03/20 14:54 Hgb 14.6 gm/dl (11.8-15.2) 02/03/20 14:54 Hct 42.7 % (35.5-45.6) 02/03/20 14:54 MCV 83 fl (84-94) L 02/03/20 14:54 MCH 28 pg (28-32) 02/03/20 14:54 MCHC 34 % (32-34) 02/03/20 14:54 RDW 14.8 % (13.2-15.2) 02/03/20 14:54 Plt Count 343 K/mm3 (140-440) 02/03/20 14:54 Lymph % (Auto) 39.7 % (13.4-35.0) H 01/29/20 23:06 [place] % (Auto) 14.7 % (0.0-7.3) H 01/29/20 23:06 Eos % (Auto) 2.1 % (0.0-4.3) 01/29/20 23:06 Baso % (Auto) 1.1 % (0.0-1.8) 01/29/20 23:06 Lymph # 2.8 K/mm3 (1.2-5.4) 01/29/20 23:06 [place] # 1.0 K/mm3 (0.0-0.8) H 01/29/20 23:06 Eos # 0.1 K/mm3 (0.0-0.4) 01/29/20 23:06 Baso # 0.1 K/mm3 (0.0-0.1) 01/29/20 23:06 Seg Neutrophils % 42.4 % (40.0-70.0) 01/29/20 23:06 Seg Neutrophils # 3.0 K/mm3 (1.8-7.7) 01/29/20 23:06 PT 14.0 Sec. (12.2-14.9) 01/29/20 23:06 INR 1.07 (0.87-1.13) 01/29/20 23:06 APTT 27.5 Sec. (24.2-36.6) 01/29/20 23:06 Thrombin Time 15.8 Sec. (15.1-19.6) 01/29/20 23:06 Sodium 137 mmol/L (137-145) 02/03/20 14:54 Potassium 3.1 mmol/L (3.6-5.0) L D 02/03/20 14:54 Chloride 105.2 mmol/L (98-107) 02/03/20 14:54 Carbon Dioxide 19 mmol/L (22-30) L D 02/03/20 14:54 Anion Gap 16 mmol/L 02/03/20 14:54 BUN 18 mg/dL (9-20) 02/03/20 14:54 Creatinine 1.0 mg/dL (0.8-1.5) 02/03/20 14:54 Estimated GFR > 60 ml/min 02/03/20 14:54 BUN/Creatinine Ratio 18 % 02/03/20 14:54 Glucose 102 mg/dL (75-100) H 02/03/20 14:54 POC Glucose 113 (70-105) H 02/04/20 07:49 Calcium 9.3 mg/dL (8.4-10.2) 02/03/20 14:54 Troponin T < 0.010 ng/mL (0.00-0.029) 01/29/20 23:06 Triglycerides 293 mg/dL (2-149) H 01/30/20 13:26 Cholesterol 162 mg/dL (50-199) 01/30/20 13:26 LDL Cholesterol Direct 105 mg/dL (50-130) 01/30/20 13:26 HDL Cholesterol 31 mg/dL (40-59) L 01/30/20 13:26 Cholesterol/HDL Ratio 5.22 % 01/30/20 13:26 Nasal Screen MRSA (PCR) Negative (Negative) 01/30/20 04:50 Urine Opiates Screen Presumptive negative 02/02/20 Unknown Urine Methadone Screen Presumptive negative 02/02/20 Unknown Ur Barbiturates Screen Presumptive negative 02/02/20 Unknown Ur Phencyclidine Scrn Presumptive negative 02/02/20 Unknown Ur Amphetamines Screen Presumptive positive 02/02/20 Unknown U Benzodiazepines Scrn Presumptive negative 02/02/20 Unknown Urine Cocaine Screen Presumptive negative 02/02/20 Unknown U Marijuana (THC) Screen Presumptive negative 02/02/20 Unknown Drugs of Abuse Note Disclamer 02/02/20 Unknown - Diagnostic Impressions Diagnostic Impressions: Echocardiogram 01/30/20 06:00 Transthoracic Echocardiogram Indication: Brain infarct BP: 185/94 HR: 72 Conclusions *Mild concentric left ventricular hypertrophy is observed. *Global left ventricular systolic function is normal. *The estimated ejection fraction is 55-60%. *Abnormal left ventricular diastolic filling is observed, consistent with impaired relaxation. *There is mild aortic regurgitation. *There is no pericardial effusion. *Normal bubble study without evidence of intracardiac or intrapulmonary communication Findings Left Ventricle: The left ventricular chamber size is normal. Mild concentric left ventricular hypertrophy is observed. Global left ventricular systolic function is normal. The estimated ejection fraction is 55-60%. Abnormal left ventricular diastolic filling is observed, consistent with impaired relaxation. Left Atrium: The left atrial chamber size is normal. Right Ventricle: The right ventricular cavity size is normal. The right ventricular global systolic function is normal. Right Atrium: The right atrial cavity size is normal. No atrial septal defected is demonstrated by agitated saline contrast. Aortic Valve: The aortic valve is trileaflet. There is mild aortic regurgitation. Mitral Valve: The mitral valve leaflets are mildly thickened. There is trace of mitral regurgitation. Tricuspid Valve: The tricuspid valve leaflets are normal. There is trace tricuspid regurgitation. The right ventricular systolic pressure is calculated at 21 mmHg. Pulmonic Valve: The pulmonic valve appears normal. There is no evidence of pulmonic regurgitation. Pericardium: There is no pericardial effusion. There is a minimial pericardial effusion. Aorta: There is no dilatation of the ascending aorta. There is no dilatation of the aortic root. Venous: The inferior vena cava appears normal in size. There is a greater than 50% respiratory change in the inferior vena cava dimension. Measurements Chambers 2D Name Value Normal Range IVSd (2D) 1.26 cm (0.6 - 1.1) LVPWd (2D) 1.28 cm (0.6 - 1.1) LVIDd (2D) 4.16 cm (3.7 - 5.6) LVIDs (2D) 2.61 cm (2 - 3.8) LV FS (2D) 37.36 % - EF Teichholz (2D) 67.78 % - Ao root diameter (2D) 3.66 cm (2 - 3.7) Volumes/Mass Name Value Normal Range LA ESV SP 4CH (A/L) 47.43 ml - LA ESV SP 2CH (A/L) 49.43 ml - LA ESV BP (A/L) 50.34 ml - LA ESV BP (A/L) index 25.42 ml/m2 - LA ESV SP 4CH (MOD) 43.41 ml - LA ESV SP 2CH (MOD) 46.74 ml - LA ESV BP (MOD) 46.78 ml - LA ESV BP (MOD) index 23.63 ml/m2 - Diastolic/Systolic Function Name Value Normal Range MV E-wave Vmax 0.7 m/sec - MV deceleration time 237.63 msec - MV A-wave Vmax 0.85 m/sec - MV E:A ratio 0.82 ratio - Aortic Valve Name Value Normal Range AV Vmax 1.4 m/sec - AV VTI 24.22 cm - AV peak gradient 7.8 mmHg - AV mean gradient 4.66 mmHg - LVOT diameter 2.1 cm - LVOT Vmax 1.24 m/sec - LVOT VTI 28.19 cm - LVOT peak gradient 6.15 mmHg - LVOT mean gradient 3.55 mmHg - SV LVOT 97.55 ml - KETURAH (continuity Vmax) 3.07 cm2 - KETURAH (continuity VTI) 4.03 cm2 - AR PHT 535.67 msec - AR peak gradient 64.79 mmHg - Tricuspid Valve Name Value Normal Range TR Vmax 2.13 m/sec - TR peak gradient 18 mmHg - RAP 3 mmHg - RVSP 21 mmHg - IVC diameter 1.81 cm (1.2 - 2.3) Pulmonic Valve/Qp:Qs Name Value Normal Range PV Vmax 1.06 m/sec - PV peak gradient 4.47 mmHg - PV acceleration time 133.21 msec - Akhtar/IV: Voiding Method Urinal IV Catheter Type [Left Forearm INT / Saline Lock ] IV Catheter Type [Right Hand] INT / Saline Lock IV Catheter Type [Left INT / Saline Lock Antecubital] Active Medications - Current Medications Current Medications: Generic Name Dose Route Start Last Admin Trade Name Freq PRN Reason Stop Dose Admin Acetaminophen 650 mg 01/30/20 02:02 Tylenol [place] Q4H PRN Fever >101 Acetaminophen 650 mg 02/03/20 23:39 02/03/20 23:52 Tylenol PO 650 mg Q4H PRN Administration Pain, Mild (1-3) Amlodipine Besylate 10 mg 01/30/20 10:00 02/04/20 09:51 Amlodipine PO 10 mg DAILY MATEUSZ Administration Aspirin 325 mg 01/30/20 10:00 02/04/20 09:51 Aspirin PO 325 mg QDAY MATEUSZ Administration Atorvastatin Calcium 40 mg 01/30/20 10:00 02/04/20 09:51 Lipitor PO 40 mg QDAY MATEUSZ Administration Dextrose 0 ml 01/30/20 02:05 D50w (25gm) Syringe IV Q30MIN PRN Hypoglycemia Protocol Fish Oil 2,000 mg 02/02/20 12:00 02/04/20 09:51 Fish Oil PO 2,000 mg BID MATEUSZ Administration Hydralazine HCl 10 mg 01/31/20 22:21 02/04/20 06:14 Apresoline IV 10 mg Q6H PRN Administration Blood Pressure Insulin Human Regular 0 units 01/30/20 07:30 02/04/20 08:42 Humulin R SUB-Q Not Given AC [facility] Protocol Insulin Human Regular 0 units 01/30/20 22:00 02/03/20 21:36 Humulin R SUB-Q 1 units QHS MATEUSZ Administration Protocol Lisinopril 40 mg 01/30/20 10:00 02/04/20 09:51 Zestril PO 40 mg QDAY MATEUSZ Administration Melatonin 5 mg 02/02/20 11:47 02/03/20 23:40 Melatonin PO 5 mg QHS PRN Administration Sleep Ondansetron HCl 4 mg 01/30/20 02:02 02/03/20 21:06 Zofran IV 4 mg Q8H PRN Administration Nausea And Vomiting Zolpidem Tartrate 5 mg 01/31/20 22:21 02/03/20 21:02 Ambien PO 5 mg QHS PRN Administration Sleep
[2020-02-04] MEDS: POTASSIUM CHLORIDE ER 20 MEQ TAB PO SCH ×2 (13:07→17:16)
--- NOTE | 2020-02-04 14:55 | XRay Report ---
CHEST 1 VIEW INDICATION: Covid-19 positive, COUGH, FEVER. COMPARISON: None FINDINGS: Support devices: None. Heart: Within normal limits. Lungs/Pleura: No acute air space or interstitial disease. Additional findings: None. IMPRESSION: 1. No acute findings. Signer Name: Milton Peña MD Signed: 02/04/2020 2:50 PM Workstation Name: [id number]
[2020-02-04 15:42] LABS: C-Reactive Protein 0.2 mg/dL (0.00-1.30)
[2020-02-04] MEDS: ZOLPIDEM 5 MG TAB PO PRN (22:12)
[2020-02-05] MEDS: LISINOPRIL 40 MG TAB PO SCH (09:36)
[2020-02-05] MEDS: ASPIRIN 325 MG TAB PO SCH (09:36)
[2020-02-05] MEDS: amLODIPine 10 MG TAB PO SCH (09:36)
[2020-02-05] MEDS: INSULIN REGULAR, HUMAN 100 UNITS/1 ML SUB-Q SCH ×4 (09:37→22:40)
--- NOTE | 2020-02-05 10:54 | Discharge Summary ---
Providers - Providers Date of Admission: 01/31/20 11:38 Attending physician: FRANCI COLLINS 01/30/20 06:00 Consult to Physician [CONS] Routine Comment: Consulting Provider: TOM AMAYA Physician Instructions: Reason For Exam: ATAXIA AND LACUNAR BRAIN INFARCT Physical Therapy Evaluation and Treat [CONS] Routine Comment: Reason For Exam: ATAXIA Speech Therapy Evaluation and Treat [CONS] Routine Reason For Exam: SPEECH IMPAIRMENT 02/01/20 14:55 Consult to Mental Health [CONS] Routine Reason For Exam: Depressed mood 02/04/20 14:17 Consult to Physician [CONS] Routine Comment: Consulting Provider: SHUBHAM MORA Physician Instructions: Reason For Exam: Covid-19 pos [facility] Condition: Stable Disposition: DC-30 STILL A PATIENT Core Measure Documentation - Palliative Care Palliative Care/ Comfort Measures: Not Applicable Exam - Constitutional Vitals: Temp Pulse Resp BP Pulse Ox 98.9 F 72 20 181/86 93 02/05/20 05:25 02/05/20 09:36 02/05/20 05:25 02/05/20 09:36 02/05/20 05:25 Plan
--- NOTE | 2020-02-05 13:15 | Progress Note ---
Assessment and Plan Assessment and plan: Right basal ganglia lacunar infarct. Continue aspirin and statin. Follow-up CTA of neck and echocardiogram. Follow-up TSH T4. PT/OT. PT recommends subacute rehab. Covid-19 infection Hypertension. Continue antihypertensive medications. Diabetes mellitus type 2. Continue Accu-Cheks and sliding scale insulin. Disposition. Subacute rehab when bed available. 02/01/2020. Echocardiogram reveals mild concentric left ventricular hypertrophy with EF of 55 to 60%. Normal bubble study without evidence of intracardiac or intrapulmonary communication. Carotid Doppler negative. MRI reveals 2.2 cm a cute infarct involving the left middle cerebellar peduncle and anterior left cerebellum. Also, multiple old basal ganglia lacunar infarcts and mild to moderate microvascular angiopathy. PT recommends KYE. Continue PT/OT. Await placement. 02/02/2020. Continue aspirin and Lipitor. PT/OT. Blood pressure control with lisinopril and Norvasc. Hydralazine PRN. Awaiting subacute rehab placement 02/03/2020 Patient with acute right basal ganglia infarct. patient needs acutee rehab placement. manager administration says patient needs covid-19 test. Ordered. 02/04/20 Patient with acute ischemic stroke. Awaiting placement at acute rehab. Covid-19 test ordered ,awaiting. 02/05/20 Patient with acute ischemic stroke. He is medically stable to discharge to Subacute Rehab. awaiting placement. patient was agitated, Nurse says patient hit her, code aguilar was called. Will start haldol prn, restraints, Psych following. History Interval history: left sided weakness Hospitalist Physical - Physical exam Narrative exam: GEN: Not in acute distress, obese, lying in bed HEENT: Normocephalic, atraumatic, Neck: supple, No JVD Lungs: Clear to auscultation bilaterally, heart;S1 and S2 reg, no murmurs, rubs or gallop Abd:soft, non tender, non distended, normal bowel sounds, Ext: No edema, no clubbing, no cyanosis, Neuro: Awake,alert,left sided weakness - Constitutional Vitals: Temp Pulse Resp BP Pulse Ox 98.2 F 69 20 158/82 96 02/05/20 11:03 02/05/20 11:03 02/05/20 11:03 02/05/20 11:03 02/05/20 11:03 General appearance: Present: no acute distress Results - Labs CBC & Chem 7: 02/03/20 14:54 02/04/20 08:28 Labs: Laboratory Last Values WBC 8.0 K/mm3 (4.5-11.0) 02/03/20 14:54 RBC 5.16 M/mm3 (3.65-5.03) H 02/03/20 14:54 Hgb 14.6 gm/dl (11.8-15.2) 02/03/20 14:54 Hct 42.7 % (35.5-45.6) 02/03/20 14:54 MCV 83 fl (84-94) L 02/03/20 14:54 MCH 28 pg (28-32) 02/03/20 14:54 MCHC 34 % (32-34) 02/03/20 14:54 RDW 14.8 % (13.2-15.2) 02/03/20 14:54 Plt Count 343 K/mm3 (140-440) 02/03/20 14:54 Lymph % (Auto) 39.7 % (13.4-35.0) H 01/29/20 23:06 [place] % (Auto) 14.7 % (0.0-7.3) H 01/29/20 23:06 Eos % (Auto) 2.1 % (0.0-4.3) 01/29/20 23:06 Baso % (Auto) 1.1 % (0.0-1.8) 01/29/20 23:06 Lymph # 2.8 K/mm3 (1.2-5.4) 01/29/20 23:06 [place] # 1.0 K/mm3 (0.0-0.8) H 01/29/20 23:06 Eos # 0.1 K/mm3 (0.0-0.4) 01/29/20 23:06 Baso # 0.1 K/mm3 (0.0-0.1) 01/29/20 23:06 Seg Neutrophils % 42.4 % (40.0-70.0) 01/29/20 23:06 Seg Neutrophils # 3.0 K/mm3 (1.8-7.7) 01/29/20 23:06 PT 14.0 Sec. (12.2-14.9) 01/29/20 23:06 INR 1.07 (0.87-1.13) 01/29/20 23:06 APTT 27.5 Sec. (24.2-36.6) 01/29/20 23:06 Thrombin Time 15.8 Sec. (15.1-19.6) 01/29/20 23:06 D-Dimer 209.97 ng/mlDDU (0-234) 02/04/20 14:59 Sodium 137 mmol/L (137-145) 02/03/20 14:54 Potassium 3.0 mmol/L (3.6-5.0) L 02/04/20 08:28 Chloride 105.2 mmol/L (98-107) 02/03/20 14:54 Carbon Dioxide 19 mmol/L (22-30) L D 02/03/20 14:54 Anion Gap 16 mmol/L 02/03/20 14:54 BUN 18 mg/dL (9-20) 02/03/20 14:54 Creatinine 1.0 mg/dL (0.8-1.5) 02/03/20 14:54 Estimated GFR > 60 ml/min 02/03/20 14:54 BUN/Creatinine Ratio 18 % 02/03/20 14:54 Glucose 102 mg/dL (75-100) H 02/03/20 14:54 POC Glucose 158 (70-105) H 02/05/20 11:18 Calcium 9.3 mg/dL (8.4-10.2) 02/03/20 14:54 Ferritin 112.9 ng/mL (13.0-400.0) 02/04/20 14:59 Lactate Dehydrogenase 229 units/L (91-180) H 02/04/20 14:59 Troponin T < 0.010 ng/mL (0.00-0.029) 01/29/20 23:06 C-Reactive Protein 0.20 mg/dL (0.00-1.30) 02/04/20 14:59 Triglycerides 293 mg/dL (2-149) H 01/30/20 13:26 Cholesterol 162 mg/dL (50-199) 01/30/20 13:26 LDL Cholesterol Direct 105 mg/dL (50-130) 01/30/20 13:26 HDL Cholesterol 31 mg/dL (40-59) L 01/30/20 13:26 Cholesterol/HDL Ratio 5.22 % 01/30/20 13:26 Procalcitonin < 0.05 ng/mL (<0.15) 02/04/20 14:59 Nasal Screen MRSA (PCR) Negative (Negative) 01/30/20 04:50 Urine Opiates Screen Presumptive negative 02/02/20 Unknown Urine Methadone Screen Presumptive negative 02/02/20 Unknown Ur Barbiturates Screen Presumptive negative 02/02/20 Unknown Ur Phencyclidine Scrn Presumptive negative 02/02/20 Unknown Ur Amphetamines Screen Presumptive positive 02/02/20 Unknown U Benzodiazepines Scrn Presumptive negative 02/02/20 Unknown Urine Cocaine Screen Presumptive negative 02/02/20 Unknown U Marijuana (THC) Screen Presumptive negative 02/02/20 Unknown Drugs of Abuse Note Disclamer 02/02/20 Unknown Coronavirus (PCR) Positive (Negative) A 02/03/20 08:32 - Diagnostic Impressions Diagnostic Impressions: Echocardiogram 01/30/20 06:00 Transthoracic Echocardiogram Indication: Brain infarct BP: 185/94 HR: 72 Conclusions *Mild concentric left ventricular hypertrophy is observed. *Global left ventricular systolic function is normal. *The estimated ejection fraction is 55-60%. *Abnormal left ventricular diastolic filling is observed, consistent with impaired relaxation. *There is mild aortic regurgitation. *There is no pericardial effusion. *Normal bubble study without evidence of intracardiac or intrapulmonary communication Findings Left Ventricle: The left ventricular chamber size is normal. Mild concentric left ventricular hypertrophy is observed. Global left ventricular systolic function is normal. The estimated ejection fraction is 55-60%. Abnormal left ventricular diastolic filling is observed, consistent with impaired relaxation. Left Atrium: The left atrial chamber size is normal. Right Ventricle: The right ventricular cavity size is normal. The right ventricular global systolic function is normal. Right Atrium: The right atrial cavity size is normal. No atrial septal defected is demonstrated by agitated saline contrast. Aortic Valve: The aortic valve is trileaflet. There is mild aortic regurgitation. Mitral Valve: The mitral valve leaflets are mildly thickened. There is trace of mitral regurgitation. Tricuspid Valve: The tricuspid valve leaflets are normal. There is trace tricuspid regurgitation. The right ventricular systolic pressure is calculated at 21 mmHg. Pulmonic Valve: The pulmonic valve appears normal. There is no evidence of pulmonic regurgitation. Pericardium: There is no pericardial effusion. There is a minimial pericardial effusion. Aorta: There is no dilatation of the ascending aorta. There is no dilatation of the aortic root. Venous: The inferior vena cava appears normal in size. There is a greater than 50% respiratory change in the inferior vena cava dimension. Measurements Chambers 2D Name Value Normal Range IVSd (2D) 1.26 cm (0.6 - 1.1) LVPWd (2D) 1.28 cm (0.6 - 1.1) LVIDd (2D) 4.16 cm (3.7 - 5.6) LVIDs (2D) 2.61 cm (2 - 3.8) LV FS (2D) 37.36 % - EF Teichholz (2D) 67.78 % - Ao root diameter (2D) 3.66 cm (2 - 3.7) Volumes/Mass Name Value Normal Range LA ESV SP 4CH (A/L) 47.43 ml - LA ESV SP 2CH (A/L) 49.43 ml - LA ESV BP (A/L) 50.34 ml - LA ESV BP (A/L) index 25.42 ml/m2 - LA ESV SP 4CH (MOD) 43.41 ml - LA ESV SP 2CH (MOD) 46.74 ml - LA ESV BP (MOD) 46.78 ml - LA ESV BP (MOD) index 23.63 ml/m2 - Diastolic/Systolic Function Name Value Normal Range MV E-wave Vmax 0.7 m/sec - MV deceleration time 237.63 msec - MV A-wave Vmax 0.85 m/sec - MV E:A ratio 0.82 ratio - Aortic Valve Name Value Normal Range AV Vmax 1.4 m/sec - AV VTI 24.22 cm - AV peak gradient 7.8 mmHg - AV mean gradient 4.66 mmHg - LVOT diameter 2.1 cm - LVOT Vmax 1.24 m/sec - LVOT VTI 28.19 cm - LVOT peak gradient 6.15 mmHg - LVOT mean gradient 3.55 mmHg - SV LVOT 97.55 ml - KETURAH (continuity Vmax) 3.07 cm2 - KETURAH (continuity VTI) 4.03 cm2 - AR PHT 535.67 msec - AR peak gradient 64.79 mmHg - Tricuspid Valve Name Value Normal Range TR Vmax 2.13 m/sec - TR peak gradient 18 mmHg - RAP 3 mmHg - RVSP 21 mmHg - IVC diameter 1.81 cm (1.2 - 2.3) Pulmonic Valve/Qp:Qs Name Value Normal Range PV Vmax 1.06 m/sec - PV peak gradient 4.47 mmHg - PV acceleration time 133.21 msec - Akhtar/IV: Voiding Method Urinal IV Catheter Type [Right Peripheral IV Forearm] IV Catheter Type [Left Forearm INT / Saline Lock ] IV Catheter Type [Right Hand] INT / Saline Lock IV Catheter Type [Left INT / Saline Lock Antecubital] Active Medications - Current Medications Current Medications: Generic Name Dose Route Start Last Admin Trade Name Freq PRN Reason Stop Dose Admin Acetaminophen 650 mg 01/30/20 02:02 Tylenol ME Q4H PRN Fever >101 Acetaminophen 650 mg 02/03/20 23:39 02/03/20 23:52 Tylenol PO 650 mg Q4H PRN Administration Pain, Mild (1-3) Amlodipine Besylate 10 mg 01/30/20 10:00 02/05/20 09:36 Amlodipine PO 10 mg DAILY MATEUSZ Administration Aspirin 325 mg 01/30/20 10:00 02/05/20 09:36 Aspirin PO 325 mg QDAY MATEUSZ Administration Atorvastatin Calcium 40 mg 01/30/20 10:00 02/05/20 09:36 Lipitor PO 40 mg QDAY MATEUSZ Administration Dextrose 0 ml 01/30/20 02:05 D50w (25gm) Syringe IV Q30MIN PRN Hypoglycemia Protocol Fish Oil 2,000 mg 02/02/20 12:00 02/04/20 23:44 Fish Oil PO 2,000 mg BID MATEUSZ Administration Haloperidol Lactate 5 mg 02/05/20 12:56 Haldol IM Q6H PRN Agitation Hydralazine HCl 10 mg 01/31/20 22:21 02/04/20 22:18 Apresoline IV 10 mg Q6H PRN Administration Blood Pressure Insulin Human Regular 0 units 01/30/20 07:30 02/05/20 09:37 Humulin R SUB-Q 1 units AC MATEUSZ Administration Protocol Insulin Human Regular 0 units 01/30/20 22:00 02/04/20 22:17 Humulin R SUB-Q 1 units QHS MATEUSZ Administration Protocol Lisinopril 40 mg 01/30/20 10:00 02/05/20 09:36 Zestril PO 40 mg QDAY MATEUSZ Administration Melatonin 5 mg 02/02/20 11:47 02/03/20 23:40 Melatonin PO 5 mg QHS PRN Administration Sleep Ondansetron HCl 4 mg 01/30/20 02:02 02/03/20 21:06 Zofran IV 4 mg Q8H PRN Administration Nausea And Vomiting Zolpidem Tartrate 5 mg 01/31/20 22:21 02/04/20 22:12 Ambien PO 5 mg QHS PRN Administration Sleep
[2020-02-05] MEDS: HALOPERIDOL LACTATE 5 MG/1 ML INJ IM PRN (13:43)
--- NOTE | 2020-02-05 13:45 | Consultation ---
History of Present Illness - Reason for Consult Consult date: 02/05/20 - History of Present Illness 54-year-old male past medical history hypertension, [place] admitted with 2 days of gait imbalance. He notes that he was complaining that he was falling to the left, and also noted some difficulty with speaking. He complained of some left facial numbness at that time otherwise he denies any symptoms including fevers, sweats, chills, shortness of breath. On admission he was found to have an acute infarct in the left cerebellum, and was treated as an acute stroke. He was planned to be discharged to an acute rehab to continue his recovery however they required SARS-CoV2 screening of patients and he returned as positive. He does not have any acute symptoms of COVID-19. Afebrile since admission with a white count of 5. Not currently receiving antibiotics. No cultures available for review. Imaging personally reviewed: Chest x-ray: No acute infectious process. Review of Systems: Bold if positive, otherwise negative General: fevers, chills, rigors HEENT: visual disturbance, diplopia, eye pain Respiratory: cough, sputum, hemoptysis, shortness of breath Cardiovascular: chest pain, syncope Gastrointestinal: nausea, vomiting, diarrhea, abdominal pain Genitourinary: dysuria, hematuria, flank pain Musculoskeletal: neck pain, back pain, joint pain, edema Neurologic: headaches, seizures Hematologic: easy bruising or bleeding Endocrine: night sweats, acute weight loss Skin: rash, jaundice, redness Psychiatric: suicidal, homicidal ideation Past History Past Medical History: diabetes, hypertension, stroke Past Surgical History: No surgical history Social history: no significant social history Family history: no significant family history Medications and Allergies Allergies Allergy/AdvReac Type Severity Reaction Status Date / Time No Known Allergies Allergy Unverified 01/29/20 23:01 Home Medications Medication Instructions Recorded Confirmed Last Taken Type Atorvastatin [Lipitor Tab] 40 mg PO QDAY 01/30/20 01/30/20 Unknown History Metformin HCl [metFORMIN] 1,000 mg PO QDAY 01/30/20 01/30/20 Unknown History amLODIPine [Norvasc] 10 mg PO DAILY 01/30/20 01/30/20 Unknown History lisinopriL [Zestril TAB] 40 mg PO QDAY 01/30/20 01/30/20 Unknown History Active Meds: Active Medications Acetaminophen (Tylenol) 650 mg [place] Q4H PRN PRN Reason: Fever >101 Acetaminophen (Tylenol) 650 mg PO Q4H PRN PRN Reason: Pain, Mild (1-3) Last Admin: 02/03/20 23:52 Dose: 650 mg Documented by: Amlodipine Besylate (Amlodipine) 10 mg PO DAILY [facility] Last Admin: 02/05/20 09:36 Dose: 10 mg Documented by: Aspirin (Aspirin) 325 mg PO QDAY [facility] Last Admin: 02/05/20 09:36 Dose: 325 mg Documented by: Atorvastatin Calcium (Lipitor) 40 mg PO QDAY [facility] Last Admin: 02/05/20 09:36 Dose: 40 mg Documented by: Dextrose (D50w (25gm) Syringe) 0 ml IV Q30MIN PRN; Protocol PRN Reason: Hypoglycemia Fish Oil (Fish Oil) 2,000 mg PO BID [facility] Last Admin: 02/04/20 23:44 Dose: 2,000 mg Documented by: Haloperidol Lactate (Haldol) 5 mg IM Q6H PRN PRN Reason: Agitation Hydralazine HCl (Apresoline) 10 mg IV Q6H PRN PRN Reason: Blood Pressure Last Admin: 02/04/20 22:18 Dose: 10 mg Documented by: Insulin Human Regular (Humulin R) 0 units SUB-Q [facility]; Protocol Last Admin: 02/05/20 09:37 Dose: 1 units Documented by: [facility]ulin [facility] Regular ([facility]) [facility]; [facility] Last Admin: 02/04/20 22:17 Dose: 1 units Documented by: Lisinopril (Zestril) 40 mg PO QDAY [facility] Last Admin: 02/05/20 09:36 Dose: 40 mg Documented by: Melatonin (Melatonin) 5 mg PO QHS PRN PRN Reason: Sleep Last Admin: 02/03/20 23:40 Dose: 5 mg Documented by: Ondansetron HCl (Zofran) 4 mg IV Q8H PRN PRN Reason: Nausea And Vomiting Last Admin: 02/03/20 21:06 Dose: 4 mg Documented by: Zolpidem Tartrate (Ambien) 5 mg PO QHS PRN PRN Reason: Sleep Last Admin: 02/04/20 22:12 Dose: 5 mg Documented by: Physical Examination - Physical Exam Narrative exam: Physical exam deferred due to PPE conservation strategy. Exam reviewed in chart. - Constitutional Vitals: Vital Signs Temp Pulse Resp BP Pulse Ox 98.2 F 69 20 158/82 96 02/05/20 11:03 02/05/20 11:03 02/05/20 11:03 02/05/20 11:03 02/05/20 11:03 Temperature -Last 24 Hours Temperature 98.2 F Temperature 98.9 F Temperature 98.5 F Results - Labs CBC & Chem 7: 02/03/20 14:54 02/04/20 08:28 Labs: Abnormal lab results 02/03/20 02/04/20 02/04/20 Range/Units 08:32 14:59 21:53 POC Glucose 157 H (70-105) Lactate Dehydrogenase 229 H (91-180) units/L Coronavirus (PCR) Positive A (Negative) 02/05/20 02/05/20 Range/Units 08:57 11:18 POC Glucose 160 H 158 H (70-105) Lactate Dehydrogenase (91-180) units/L Coronavirus (PCR) (Negative) Assessment and Plan Cultures: None A/P: 54-year-old male past medical history of hypertension, diabetes admitted with acute stroke and found to be asymptomatically positive for COVID-19. #COVID-19: Asymptomatic, no acute findings on chest x-ray. Afebrile and not short of breath. No need for treatment at this time #Acute stroke: Management per primary #Diabetes: Tight glycemic control Recs: -No acute therapy indicated per asymptomatic COVID-19 at this time. -Continue precautions while inpatient -Okay for discharge from infectious disease standpoint. Thank you for the consult, we will continue to follow. Austin Berumen MD [facility], [place] [facility] M: [phone] O: [phone] F: [phone]
[2020-02-05] MEDS: OMEGA-3 FATTY ACIDS/FISH OIL 1 GRAM CAP PO SCH ×2 (15:12→22:43)
[2020-02-05] MEDS: hydrALAZINE 20 MG/1 ML INJ IV PRN ×2 (16:58→22:50)
[2020-02-05] MEDS: ZOLPIDEM 5 MG TAB PO PRN (22:44)
[2020-02-06 05:26] LABS: Hemoglobin 14.9 gm/dl (11.8-15.2); Mean Corpuscular HGB Conc 35 % (32-34); Mean Corpuscular Volume 83 fl (84-94); Platelet Count 354 K/mm3 (140-440); Red Blood Count 5.17 M/mm3 (3.65-5.03); Red Cell Distribution Width 15.1 % (13.2-15.2)
[2020-02-06 05:44] LABS: BUN/Creatinine Ratio 18; Blood Urea Nitrogen 16 mg/dL (9-20); Calcium 9.6 mg/dL (8.4-10.2); Hemolysis Index 11
[2020-02-06] MEDS: INSULIN REGULAR, HUMAN 100 UNITS/1 ML SUB-Q SCH ×4 (08:24→23:14)
[2020-02-06] MEDS: LISINOPRIL 40 MG TAB PO SCH (10:11)
[2020-02-06] MEDS: amLODIPine 10 MG TAB PO SCH (10:11)
[2020-02-06] MEDS: ASPIRIN 325 MG TAB PO SCH (10:11)
[2020-02-06] MEDS: POTASSIUM CHLORIDE ER 20 MEQ TAB PO SCH ×2 (10:11→13:16)
--- NOTE | 2020-02-06 11:36 | Progress Note ---
Assessment and Plan Assessment and plan: Right basal ganglia lacunar infarct. Continue aspirin and statin. Follow-up CTA of neck and echocardiogram. Follow-up TSH T4. PT/OT. PT recommends subacute rehab. Covid-19 infection Hypertension. Continue antihypertensive medications. Diabetes mellitus type 2. Continue Accu-Cheks and sliding scale insulin. Disposition. Subacute rehab when bed available. 02/01/2020. Echocardiogram reveals mild concentric left ventricular hypertrophy with EF of 55 to 60%. Normal bubble study without evidence of intracardiac or intrapulmonary communication. Carotid Doppler negative. MRI reveals 2.2 cm a cute infarct involving the left middle cerebellar peduncle and anterior left cerebellum. Also, multiple old basal ganglia lacunar infarcts and mild to moderate microvascular angiopathy. PT recommends KYE. Continue PT/OT. Await placement. 02/02/2020. Continue aspirin and Lipitor. PT/OT. Blood pressure control with lisinopril and Norvasc. Hydralazine PRN. Awaiting subacute rehab placement 02/03/2020 Patient with acute right basal ganglia infarct. patient needs acutee rehab placement. pension fund manager says patient needs covid-19 test. Ordered. 02/04/20 Patient with acute ischemic stroke. Awaiting placement at acute rehab. Covid-19 test ordered ,awaiting. 02/05/20 Patient with acute ischemic stroke. He is medically stable to discharge to Subacute Rehab. awaiting placement. patient was agitated, Nurse says patient hit her, code jeff was called. Will start haldol prn, restraints, Psych following. Covid-19 positive 02/06/20 patient calm today. he is medically stable awaiting bed at SNF. As ymptomatic Covid-19 positive. History Interval history: left sided weakness Hospitalist Physical - Physical exam Narrative exam: GEN: Not in acute distress, obese, lying in bed HEENT: Normocephalic, atraumatic, Neck: supple, No JVD Lungs: Clear to auscultation bilaterally, heart;S1 and S2 reg, no murmurs, rubs or gallop Abd:soft, non tender, non distended, normal bowel sounds, Ext: No edema, no clubbing, no cyanosis, Neuro: Awake,alert,left sided weakness - Constitutional Vitals: Temp Pulse Resp BP Pulse Ox 99.0 F 87 16 156/87 93 02/06/20 05:16 02/06/20 05:16 02/06/20 08:28 02/06/20 10:18 02/06/20 05:16 General appearance: Present: no acute distress Results - Labs CBC & Chem 7: 02/06/20 05:09 02/06/20 05:09 Labs: Laboratory Last Values WBC 8.7 K/mm3 (4.5-11.0) 02/06/20 05:09 RBC 5.17 M/mm3 (3.65-5.03) H 02/06/20 05:09 Hgb 14.9 gm/dl (11.8-15.2) 02/06/20 05:09 Hct 43.0 % (35.5-45.6) 02/06/20 05:09 MCV 83 fl (84-94) L 02/06/20 05:09 MCH 29 pg (28-32) 02/06/20 05:09 MCHC 35 % (32-34) H 02/06/20 05:09 RDW 15.1 % (13.2-15.2) 02/06/20 05:09 Plt Count 354 K/mm3 (140-440) 02/06/20 05:09 Lymph % (Auto) 39.7 % (13.4-35.0) H 01/29/20 23:06 [place] % (Auto) 14.7 % (0.0-7.3) H 01/29/20 23:06 Eos % (Auto) 2.1 % (0.0-4.3) 01/29/20 23:06 Baso % (Auto) 1.1 % (0.0-1.8) 01/29/20 23:06 Lymph # 2.8 K/mm3 (1.2-5.4) 01/29/20 23:06 [place] # 1.0 K/mm3 (0.0-0.8) H 01/29/20 23:06 Eos # 0.1 K/mm3 (0.0-0.4) 01/29/20 23:06 Baso # 0.1 K/mm3 (0.0-0.1) 01/29/20 23:06 Seg Neutrophils % 42.4 % (40.0-70.0) 01/29/20 23:06 Seg Neutrophils # 3.0 K/mm3 (1.8-7.7) 01/29/20 23:06 PT 14.0 Sec. (12.2-14.9) 01/29/20 23:06 INR 1.07 (0.87-1.13) 01/29/20 23:06 APTT 27.5 Sec. (24.2-36.6) 01/29/20 23:06 Thrombin Time 15.8 Sec. (15.1-19.6) 01/29/20 23:06 D-Dimer 209.97 ng/mlDDU (0-234) 02/04/20 14:59 Sodium 140 mmol/L (137-145) 02/06/20 05:09 Potassium 3.2 mmol/L (3.6-5.0) L 02/06/20 05:09 Chloride 104.7 mmol/L (98-107) 02/06/20 05:09 Carbon Dioxide 21 mmol/L (22-30) L 02/06/20 05:09 Anion Gap 18 mmol/L 02/06/20 05:09 BUN 16 mg/dL (9-20) 02/06/20 05:09 Creatinine 0.9 mg/dL (0.8-1.5) 02/06/20 05:09 Estimated GFR > 60 ml/min 02/06/20 05:09 BUN/Creatinine Ratio 18 % 02/06/20 05:09 Glucose 135 mg/dL (75-100) H 02/06/20 05:09 POC Glucose 118 (70-105) H 02/06/20 08:16 Calcium 9.6 mg/dL (8.4-10.2) 02/06/20 05:09 Ferritin 112.9 ng/mL (13.0-400.0) 02/04/20 14:59 Lactate Dehydrogenase 229 units/L (91-180) H 02/04/20 14:59 Troponin T < 0.010 ng/mL (0.00-0.029) 01/29/20 23:06 C-Reactive Protein 0.20 mg/dL (0.00-1.30) 02/04/20 14:59 Triglycerides 293 mg/dL (2-149) H 01/30/20 13:26 Cholesterol 162 mg/dL (50-199) 01/30/20 13:26 LDL Cholesterol Direct 105 mg/dL (50-130) 01/30/20 13:26 HDL Cholesterol 31 mg/dL (40-59) L 01/30/20 13:26 Cholesterol/HDL Ratio 5.22 % 01/30/20 13:26 Procalcitonin < 0.05 ng/mL (<0.15) 02/04/20 14:59 Nasal Screen MRSA (PCR) Negative (Negative) 01/30/20 04:50 Urine Opiates Screen Presumptive negative 02/02/20 Unknown Urine Methadone Screen Presumptive negative 02/02/20 Unknown Ur Barbiturates Screen Presumptive negative 02/02/20 Unknown Ur Phencyclidine Scrn Presumptive negative 02/02/20 Unknown Ur Amphetamines Screen Presumptive positive 02/02/20 Unknown U Benzodiazepines Scrn Presumptive negative 02/02/20 Unknown Urine Cocaine Screen Presumptive negative 02/02/20 Unknown U Marijuana (THC) Screen Presumptive negative 02/02/20 Unknown Drugs of Abuse Note Disclamer 02/02/20 Unknown Coronavirus (PCR) Positive (Negative) A 02/03/20 08:32 - Diagnostic Impressions Diagnostic Impressions: Echocardiogram 01/30/20 06:00 Transthoracic Echocardiogram Indication: Brain infarct BP: 185/94 HR: 72 Conclusions *Mild concentric left ventricular hypertrophy is observed. *Global left ventricular systolic function is normal. *The estimated ejection fraction is 55-60%. *Abnormal left ventricular diastolic filling is observed, consistent with impaired relaxation. *There is mild aortic regurgitation. *There is no pericardial effusion. *Normal bubble study without evidence of intracardiac or intrapulmonary communication Findings Left Ventricle: The left ventricular chamber size is normal. Mild concentric left ventricular hypertrophy is observed. Global left ventricular systolic function is normal. The estimated ejection fraction is 55-60%. Abnormal left ventricular diastolic filling is observed, consistent with impaired relaxation. Left Atrium: The left atrial chamber size is normal. Right Ventricle: The right ventricular cavity size is normal. The right ventricular global systolic function is normal. Right Atrium: The right atrial cavity size is normal. No atrial septal defected is demonstrated by agitated saline contrast. Aortic Valve: The aortic valve is trileaflet. There is mild aortic regurgitation. Mitral Valve: The mitral valve leaflets are mildly thickened. There is trace of mitral regurgitation. Tricuspid Valve: The tricuspid valve leaflets are normal. There is trace tricuspid regurgitation. The right ventricular systolic pressure is calculated at 21 mmHg. Pulmonic Valve: The pulmonic valve appears normal. There is no evidence of pulmonic regurgitation. Pericardium: There is no pericardial effusion. There is a minimial pericardial effusion. Aorta: There is no dilatation of the ascending aorta. There is no dilatation of the aortic root. Venous: The inferior vena cava appears normal in size. There is a greater than 50% respiratory change in the inferior vena cava dimension. Measurements Chambers 2D Name Value Normal Range IVSd (2D) 1.26 cm (0.6 - 1.1) LVPWd (2D) 1.28 cm (0.6 - 1.1) LVIDd (2D) 4.16 cm (3.7 - 5.6) LVIDs (2D) 2.61 cm (2 - 3.8) LV FS (2D) 37.36 % - EF Teichholz (2D) 67.78 % - Ao root diameter (2D) 3.66 cm (2 - 3.7) Volumes/Mass Name Value Normal Range LA ESV SP 4CH (A/L) 47.43 ml - LA ESV SP 2CH (A/L) 49.43 ml - LA ESV BP (A/L) 50.34 ml - LA ESV BP (A/L) index 25.42 ml/m2 - LA ESV SP 4CH (MOD) 43.41 ml - LA ESV SP 2CH (MOD) 46.74 ml - LA ESV BP (MOD) 46.78 ml - LA ESV BP (MOD) index 23.63 ml/m2 - Diastolic/Systolic Function Name Value Normal Range MV E-wave Vmax 0.7 m/sec - MV deceleration time 237.63 msec - MV A-wave Vmax 0.85 m/sec - MV E:A ratio 0.82 ratio - Aortic Valve Name Value Normal Range AV Vmax 1.4 m/sec - AV VTI 24.22 cm - AV peak gradient 7.8 mmHg - AV mean gradient 4.66 mmHg - LVOT diameter 2.1 cm - LVOT Vmax 1.24 m/sec - LVOT VTI 28.19 cm - LVOT peak gradient 6.15 mmHg - LVOT mean gradient 3.55 mmHg - SV LVOT 97.55 ml - KETURAH (continuity Vmax) 3.07 cm2 - KETURAH (continuity VTI) 4.03 cm2 - AR PHT 535.67 msec - AR peak gradient 64.79 mmHg - Tricuspid Valve Name Value Normal Range TR Vmax 2.13 m/sec - TR peak gradient 18 mmHg - RAP 3 mmHg - RVSP 21 mmHg - IVC diameter 1.81 cm (1.2 - 2.3) Pulmonic Valve/Qp:Qs Name Value Normal Range PV Vmax 1.06 m/sec - PV peak gradient 4.47 mmHg - PV acceleration time 133.21 msec - Akhtar/IV: Voiding Method Urinal IV Catheter Type [Right Upper INT / Saline Lock arm] IV Catheter Type [Right Peripheral IV Forearm] IV Catheter Type [Left Forearm INT / Saline Lock ] IV Catheter Type [Right Hand] INT / Saline Lock IV Catheter Type [Left INT / Saline Lock Antecubital] Active Medications - Current Medications Current Medications: Generic Name Dose Route Start Last Admin Trade Name Freq PRN Reason Stop Dose Admin Acetaminophen 650 mg 01/30/20 02:02 Tylenol ID Q4H PRN Fever >101 Acetaminophen 650 mg 02/03/20 23:39 02/03/20 23:52 Tylenol PO 650 mg Q4H PRN Administration Pain, Mild (1-3) Amlodipine Besylate 10 mg 01/30/20 10:00 02/06/20 10:11 Amlodipine PO 10 mg DAILY MATEUSZ Administration Aspirin 325 mg 01/30/20 10:00 02/06/20 10:11 Aspirin PO 325 mg QDAY MATEUSZ Administration Atorvastatin Calcium 40 mg 01/30/20 10:00 02/06/20 10:11 Lipitor PO 40 mg QDAY MATEUSZ Administration Dextrose 0 ml 01/30/20 02:05 D50w (25gm) Syringe IV Q30MIN PRN Hypoglycemia Protocol Fish Oil 2,000 mg 02/02/20 12:00 02/05/20 22:43 Fish Oil PO 2,000 mg BID MATEUSZ Administration Haloperidol Lactate 5 mg 02/05/20 12:56 02/05/20 13:43 Haldol IM 5 mg Q6H PRN Administration Agitation Hydralazine HCl 10 mg 01/31/20 22:21 02/05/20 22:50 Apresoline IV 10 mg Q6H PRN Administration Blood Pressure Insulin Human Regular 0 units 02/06/20 11:30 Humulin R SUB-Q ACHS MATEUSZ Protocol Lisinopril 40 mg 01/30/20 10:00 02/06/20 10:11 Zestril PO 40 mg QDAY MATEUSZ Administration Melatonin 5 mg 02/02/20 11:47 02/03/20 23:40 Melatonin PO 5 mg QHS PRN Administration Sleep Ondansetron HCl 4 mg 01/30/20 02:02 02/03/20 21:06 Zofran IV 4 mg Q8H PRN Administration Nausea And Vomiting Potassium Chloride 40 meq 02/06/20 08:00 02/06/20 10:11 K-Dur PO 02/06/20 12:01 40 meq Q4H MATEUSZ Administration Zolpidem Tartrate 5 mg 01/31/20 22:21 02/05/20 22:44 Ambien PO 5 mg QHS PRN Administration Sleep Nutrition/Malnutrition Assess - Dietary Evaluation Nutrition/Malnutrition Findings: Nutrition Notes Start: 02/06/20 11:30 Freq: Status: Active Protocol: Document 02/06/20 11:30 LM (Rec: 02/06/20 11:31 LM [email or web address]) Nutrition Notes Need for Assessment generated from: LOS Initial or Follow up Brief Note Subjective/Other Information Screen for LOS. Pt with 75-100 % intakes in chart. Nutrition Intervention Revisit per MD consult or patient Sign Off request:
[2020-02-06] MEDS: HALOPERIDOL LACTATE 5 MG/1 ML INJ IM PRN (13:15)
[2020-02-06] MEDS: OMEGA-3 FATTY ACIDS/FISH OIL 1 GRAM CAP PO SCH ×2 (13:15→23:12)
--- NOTE | 2020-02-06 14:54 | Progress Note ---
Assessment and Plan Cultures: None A/P: 54-year-old male past medical history of hypertension, diabetes admitted with acute stroke and found to be asymptomatically positive for COVID-19. #COVID-19: Asymptomatic, no acute findings on chest x-ray. Afebrile and not short of breath. No need for treatment at this time #Acute stroke: Management per primary #Diabetes: Tight glycemic control Recs: -No acute therapy indicated per asymptomatic COVID-19 at this time. -Continue precautions while inpatient -Okay for discharge from infectious disease standpoint. -Follow COVID labs LDH, ferritin, CRP, d-dimer q48h to monitor for disease progression. Thank you for the consult, we will continue to follow. Austin Berumen MD [facility] ([facility]) M: [phone] O: [phone] F: [phone] Subjective Date of service: 02/06/20 Interval history: No acute change. Remains afebrile with a normal white count. on RA. Objective - Exam Narrative Exam: Physical exam deferred due to PPE conservation strategy. Exam reviewed in chart. - Constitutional Vitals: Vital Signs Temp Pulse Resp BP Pulse Ox 97.7 F 80 18 151/90 97 02/06/20 11:35 02/06/20 11:35 02/06/20 11:35 02/06/20 11:35 02/06/20 11:35 Temperature -Last 24 Hours Temperature 97.7 F Temperature 99.0 F Temperature 98.0 F Temperature 98.5 F - Labs CBC & Chem 7: 02/06/20 05:09 02/06/20 05:09 Labs: Abnormal lab results 02/05/20 02/06/20 02/06/20 Range/Units 16:27 05:09 05:09 RBC 5.17 H (3.65-5.03) M/mm3 MCV 83 L (84-94) fl MCHC 35 H (32-34) % Potassium 3.2 L (3.6-5.0) mmol/L Carbon Dioxide 21 L (22-30) mmol/L Glucose 135 H (75-100) mg/dL POC Glucose 181 H (70-105) 02/06/20 02/06/20 Range/Units 08:16 11:46 RBC (3.65-5.03) M/mm3 MCV (84-94) fl MCHC (32-34) % Potassium (3.6-5.0) mmol/L Carbon Dioxide (22-30) mmol/L Glucose (75-100) mg/dL POC Glucose 118 H 125 H (70-105)
[2020-02-06 17:14] LABS: C-Reactive Protein 0.1 mg/dL (0.00-1.30)
[2020-02-07] MEDS: HALOPERIDOL LACTATE 5 MG/1 ML INJ IM PRN (04:12)
[2020-02-07] MEDS: ACETAMINOPHEN 325 MG TAB PO PRN ×2 (04:13→19:41)
[2020-02-07] MEDS: INSULIN REGULAR, HUMAN 100 UNITS/1 ML SUB-Q SCH ×4 (08:33→22:08)
[2020-02-07] MEDS: amLODIPine 10 MG TAB PO SCH (09:04)
[2020-02-07] MEDS: OMEGA-3 FATTY ACIDS/FISH OIL 1 GRAM CAP PO SCH ×3 (09:04→22:07)
[2020-02-07] MEDS: LISINOPRIL 40 MG TAB PO SCH (09:04)
[2020-02-07] MEDS: ASPIRIN 325 MG TAB PO SCH (09:04)
--- NOTE | 2020-02-07 09:42 | Progress Note ---
Assessment and Plan Assessment and plan: Right basal ganglia lacunar infarct. Continue aspirin and statin. Follow-up CTA of neck and echocardiogram. Follow-up TSH T4. PT/OT. PT recommends subacute rehab. Covid-19 infection Hypertension. Continue antihypertensive medications. Diabetes mellitus type 2. Continue Accu-Cheks and sliding scale insulin. Disposition. Subacute rehab when bed available. 02/01/2020. Echocardiogram reveals mild concentric left ventricular hypertrophy with EF of 55 to 60%. Normal bubble study without evidence of intracardiac or intrapulmonary communication. Carotid Doppler negative. MRI reveals 2.2 cm a cute infarct involving the left middle cerebellar peduncle and anterior left cerebellum. Also, multiple old basal ganglia lacunar infarcts and mild to moderate microvascular angiopathy. PT recommends KYE. Continue PT/OT. Await placement. 02/02/2020. Continue aspirin and Lipitor. PT/OT. Blood pressure control with lisinopril and Norvasc. Hydralazine PRN. Awaiting subacute rehab placement 02/03/2020 Patient with acute right basal ganglia infarct. patient needs acutee rehab placement. assistant project manager says patient needs covid-19 test. Ordered. 02/04/20 Patient with acute ischemic stroke. Awaiting placement at acute rehab. Covid-19 test ordered ,awaiting. 02/05/20 Patient with acute ischemic stroke. He is medically stable to discharge to Subacute Rehab. awaiting placement. patient was agitated, Nurse says patient hit her, enrrique aguilar was called. Will start haldol prn, restraints, Psych following. Covid-19 positive 02/06/20 patient calm today. he is medically stable awaiting bed at SNF. As ymptomatic Covid-19 positive. 02/07/20 Patient with asymptomatic Covid-19 positive. he is awaiting SNF placement. History Interval history: left sided weakness Episodes of agitation, Enrrique aguilar called 2 days ago Hospitalist Physical - Physical exam Narrative exam: GEN: Not in acute distress, obese, lying in bed HEENT: Normocephalic, atraumatic, Neck: supple, No JVD Lungs: Clear to auscultation bilaterally, heart;S1 and S2 reg, no murmurs, rubs or gallop Abd:soft, non tender, non distended, normal bowel sounds, Ext: No edema, no clubbing, no cyanosis, Neuro: Awake,alert,left sided weakness - Constitutional Vitals: Temp Pulse Resp BP Pulse Ox 98.5 F 71 16 180/95 94 02/07/20 05:32 02/07/20 05:32 02/07/20 08:25 02/07/20 05:32 02/07/20 05:32 General appearance: Present: no acute distress Results - Labs CBC & Chem 7: 02/06/20 05:09 02/06/20 16:02 Labs: Laboratory Last Values WBC 8.7 K/mm3 (4.5-11.0) 02/06/20 05:09 RBC 5.17 M/mm3 (3.65-5.03) H 02/06/20 05:09 Hgb 14.9 gm/dl (11.8-15.2) 02/06/20 05:09 Hct 43.0 % (35.5-45.6) 02/06/20 05:09 MCV 83 fl (84-94) L 02/06/20 05:09 MCH 29 pg (28-32) 02/06/20 05:09 MCHC 35 % (32-34) H 02/06/20 05:09 RDW 15.1 % (13.2-15.2) 02/06/20 05:09 Plt Count 354 K/mm3 (140-440) 02/06/20 05:09 Lymph % (Auto) 39.7 % (13.4-35.0) H 01/29/20 23:06 [place] % (Auto) 14.7 % (0.0-7.3) H 01/29/20 23:06 Eos % (Auto) 2.1 % (0.0-4.3) 01/29/20 23:06 Baso % (Auto) 1.1 % (0.0-1.8) 01/29/20 23:06 Lymph # 2.8 K/mm3 (1.2-5.4) 01/29/20 23:06 [place] # 1.0 K/mm3 (0.0-0.8) H 01/29/20 23:06 Eos # 0.1 K/mm3 (0.0-0.4) 01/29/20 23:06 Baso # 0.1 K/mm3 (0.0-0.1) 01/29/20 23:06 Seg Neutrophils % 42.4 % (40.0-70.0) 01/29/20 23:06 Seg Neutrophils # 3.0 K/mm3 (1.8-7.7) 01/29/20 23:06 PT 14.0 Sec. (12.2-14.9) 01/29/20 23:06 INR 1.07 (0.87-1.13) 01/29/20 23:06 APTT 27.5 Sec. (24.2-36.6) 01/29/20 23:06 Thrombin Time 15.8 Sec. (15.1-19.6) 01/29/20 23:06 D-Dimer 185.84 ng/mlDDU (0-234) 02/06/20 16:02 Sodium 140 mmol/L (137-145) 02/06/20 05:09 Potassium 3.6 mmol/L (3.6-5.0) 02/06/20 16:02 Chloride 104.7 mmol/L (98-107) 02/06/20 05:09 Carbon Dioxide 21 mmol/L (22-30) L 02/06/20 05:09 Anion Gap 18 mmol/L 02/06/20 05:09 BUN 16 mg/dL (9-20) 02/06/20 05:09 Creatinine 0.9 mg/dL (0.8-1.5) 02/06/20 05:09 Estimated GFR > 60 ml/min 02/06/20 05:09 BUN/Creatinine Ratio 18 % 02/06/20 05:09 Glucose 135 mg/dL (75-100) H 02/06/20 05:09 POC Glucose 127 (70-105) H 02/07/20 08:31 Calcium 9.6 mg/dL (8.4-10.2) 02/06/20 05:09 Magnesium 2.30 mg/dL (1.7-2.3) 02/06/20 16:02 Ferritin 125.8 ng/mL (13.0-400.0) 02/06/20 16:02 Lactate Dehydrogenase 242 units/L (91-180) H 02/06/20 16:02 Troponin T < 0.010 ng/mL (0.00-0.029) 01/29/20 23:06 C-Reactive Protein 0.10 mg/dL (0.00-1.30) 02/06/20 16:02 Triglycerides 293 mg/dL (2-149) H 01/30/20 13:26 Cholesterol 162 mg/dL (50-199) 01/30/20 13:26 LDL Cholesterol Direct 105 mg/dL (50-130) 01/30/20 13:26 HDL Cholesterol 31 mg/dL (40-59) L 01/30/20 13:26 Cholesterol/HDL Ratio 5.22 % 01/30/20 13:26 Procalcitonin < 0.05 ng/mL (<0.15) 02/04/20 14:59 Nasal Screen MRSA (PCR) Negative (Negative) 01/30/20 04:50 Urine Opiates Screen Presumptive negative 02/02/20 Unknown Urine Methadone Screen Presumptive negative 02/02/20 Unknown Ur Barbiturates Screen Presumptive negative 02/02/20 Unknown Ur Phencyclidine Scrn Presumptive negative 02/02/20 Unknown Ur Amphetamines Screen Presumptive positive 02/02/20 Unknown U Benzodiazepines Scrn Presumptive negative 02/02/20 Unknown Urine Cocaine Screen Presumptive negative 02/02/20 Unknown U Marijuana (THC) Screen Presumptive negative 02/02/20 Unknown Drugs of Abuse Note Disclamer 02/02/20 Unknown Coronavirus (PCR) Positive (Negative) A 02/03/20 08:32 - Diagnostic Impressions Diagnostic Impressions: Echocardiogram 01/30/20 06:00 Transthoracic Echocardiogram Indication: Brain infarct BP: 185/94 HR: 72 Conclusions *Mild concentric left ventricular hypertrophy is observed. *Global left ventricular systolic function is normal. *The estimated ejection fraction is 55-60%. *Abnormal left ventricular diastolic filling is observed, consistent with impaired relaxation. *There is mild aortic regurgitation. *There is no pericardial effusion. *Normal bubble study without evidence of intracardiac or intrapulmonary communication Findings Left Ventricle: The left ventricular chamber size is normal. Mild concentric left ventricular hypertrophy is observed. Global left ventricular systolic function is normal. The estimated ejection fraction is 55-60%. Abnormal left ventricular diastolic filling is observed, consistent with impaired relaxation. Left Atrium: The left atrial chamber size is normal. Right Ventricle: The right ventricular cavity size is normal. The right ventricular global systolic function is normal. Right Atrium: The right atrial cavity size is normal. No atrial septal defected is demonstrated by agitated saline contrast. Aortic Valve: The aortic valve is trileaflet. There is mild aortic regurgitation. Mitral Valve: The mitral valve leaflets are mildly thickened. There is trace of mitral regurgitation. Tricuspid Valve: The tricuspid valve leaflets are normal. There is trace tricuspid regurgitation. The right ventricular systolic pressure is calculated at 21 mmHg. Pulmonic Valve: The pulmonic valve appears normal. There is no evidence of pulmonic regurgitation. Pericardium: There is no pericardial effusion. There is a minimial pericardial effusion. Aorta: There is no dilatation of the ascending aorta. There is no dilatation of the aortic root. Venous: The inferior vena cava appears normal in size. There is a greater than 50% respiratory change in the inferior vena cava dimension. Measurements Chambers 2D Name Value Normal Range IVSd (2D) 1.26 cm (0.6 - 1.1) LVPWd (2D) 1.28 cm (0.6 - 1.1) LVIDd (2D) 4.16 cm (3.7 - 5.6) LVIDs (2D) 2.61 cm (2 - 3.8) LV FS (2D) 37.36 % - EF Teichholz (2D) 67.78 % - Ao root diameter (2D) 3.66 cm (2 - 3.7) Volumes/Mass Name Value Normal Range LA ESV SP 4CH (A/L) 47.43 ml - LA ESV SP 2CH (A/L) 49.43 ml - LA ESV BP (A/L) 50.34 ml - LA ESV BP (A/L) index 25.42 ml/m2 - LA ESV SP 4CH (MOD) 43.41 ml - LA ESV SP 2CH (MOD) 46.74 ml - LA ESV BP (MOD) 46.78 ml - LA ESV BP (MOD) index 23.63 ml/m2 - Diastolic/Systolic Function Name Value Normal Range MV E-wave Vmax 0.7 m/sec - MV deceleration time 237.63 msec - MV A-wave Vmax 0.85 m/sec - MV E:A ratio 0.82 ratio - Aortic Valve Name Value Normal Range AV Vmax 1.4 m/sec - AV VTI 24.22 cm - AV peak gradient 7.8 mmHg - AV mean gradient 4.66 mmHg - LVOT diameter 2.1 cm - LVOT Vmax 1.24 m/sec - LVOT VTI 28.19 cm - LVOT peak gradient 6.15 mmHg - LVOT mean gradient 3.55 mmHg - SV LVOT 97.55 ml - KETURAH (continuity Vmax) 3.07 cm2 - KETURAH (continuity VTI) 4.03 cm2 - AR PHT 535.67 msec - AR peak gradient 64.79 mmHg - Tricuspid Valve Name Value Normal Range TR Vmax 2.13 m/sec - TR peak gradient 18 mmHg - RAP 3 mmHg - RVSP 21 mmHg - IVC diameter 1.81 cm (1.2 - 2.3) Pulmonic Valve/Qp:Qs Name Value Normal Range PV Vmax 1.06 m/sec - PV peak gradient 4.47 mmHg - PV acceleration time 133.21 msec - Akhtar/IV: Voiding Method Urinal IV Catheter Type [Right Upper INT / Saline Lock arm] IV Catheter Type [Right Peripheral IV Forearm] IV Catheter Type [Left Forearm INT / Saline Lock ] IV Catheter Type [Right Hand] INT / Saline Lock IV Catheter Type [Left INT / Saline Lock Antecubital] Active Medications - Current Medications Current Medications: Generic Name Dose Route Start Last Admin Trade Name Freq PRN Reason Stop Dose Admin Acetaminophen 650 mg 01/30/20 02:02 Tylenol [place] Q4H PRN Fever >101 Acetaminophen 650 mg 02/03/20 23:39 02/07/20 04:13 Tylenol PO 650 mg Q4H PRN Administration Pain, Mild (1-3) Amlodipine Besylate 10 mg 01/30/20 10:00 02/07/20 09:04 Amlodipine PO 10 mg DAILY MATEUSZ Administration Aspirin 325 mg 01/30/20 10:00 02/07/20 09:04 Aspirin PO 325 mg QDAY MATEUSZ Administration Atorvastatin Calcium 40 mg 01/30/20 10:00 02/07/20 09:04 Lipitor PO 40 mg QDAY MATEUSZ Administration Dextrose 0 ml 01/30/20 02:05 D50w (25gm) Syringe IV Q30MIN PRN Hypoglycemia Protocol Fish Oil 2,000 mg 02/02/20 12:00 02/06/20 23:12 Fish Oil PO 2,000 mg BID MATEUSZ Administration Haloperidol Lactate 5 mg 02/05/20 12:56 02/07/20 04:12 Haldol IM 5 mg Q6H PRN Administration Agitation Hydralazine HCl 10 mg 01/31/20 22:21 02/05/20 22:50 Apresoline IV 10 mg Q6H PRN Administration Blood Pressure Insulin Human Regular 0 units 02/06/20 11:30 02/07/20 08:33 Humulin R SUB-Q Not Given ACHS [facility] Protocol Lisinopril 40 mg 01/30/20 10:00 02/07/20 09:04 Zestril PO 40 mg QDAY MATEUSZ Administration Melatonin 5 mg 02/02/20 11:47 02/03/20 23:40 Melatonin PO 5 mg QHS PRN Administration Sleep Naphazoline HCl/Pheniramine Maleate 2 drops 02/06/20 12:22 Visine-A OU Q6H PRN redness Ondansetron HCl 4 mg 01/30/20 02:02 02/03/20 21:06 Zofran IV 4 mg Q8H PRN Administration Nausea And Vomiting Zolpidem Tartrate 5 mg 01/31/20 22:21 02/05/20 22:44 Ambien PO 5 mg QHS PRN Administration Sleep Nutrition/Malnutrition Assess - Dietary Evaluation Nutrition/Malnutrition Findings: Nutrition Notes Start: 02/06/20 11:30 Freq: Status: Active Protocol: Document 02/06/20 11:30 LM (Rec: 02/06/20 11:31 LM [email or web address]) Nutrition Notes Need for Assessment generated from: LOS Initial or Follow up Brief Note Subjective/Other Information Screen for LOS. Pt with 75-100 % intakes in chart. Nutrition Intervention Revisit per MD consult or patient Sign Off request:
[2020-02-07] MEDS: NAPHAZOLINE/PHENIRAMINE 0.025/0.3% OPHTH SOLN 15 ML OU PRN (15:29)
[2020-02-07] MEDS: hydrALAZINE 20 MG/1 ML INJ IV PRN (22:32)
[2020-02-08] MEDS: HALOPERIDOL LACTATE 5 MG/1 ML INJ IM PRN (02:56)
[2020-02-08] MEDS: NAPHAZOLINE/PHENIRAMINE 0.025/0.3% OPHTH SOLN 15 ML OU PRN (03:00)
[2020-02-08] MEDS: INSULIN REGULAR, HUMAN 100 UNITS/1 ML SUB-Q SCH ×4 (08:32→22:05)
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
[2020-02-08] MEDS: OMEGA-3 FATTY ACIDS/FISH OIL 1 GRAM CAP PO SCH ×2 (10:05→23:41)
[2020-02-08] MEDS: ASPIRIN 325 MG TAB PO SCH (10:05)
[2020-02-08] MEDS: LISINOPRIL 40 MG TAB PO SCH (10:06)
[2020-02-08] MEDS: amLODIPine 10 MG TAB PO SCH (10:09)
[2020-02-08] MEDS: hydrALAZINE 20 MG/1 ML INJ IV PRN (13:32)
[2020-02-08 14:25] LABS: C-Reactive Protein < 0.03 mg/dL (0.00-1.30)
[2020-02-08] MEDS: ZOLPIDEM 5 MG TAB PO PRN (22:06)
[2020-02-09] MEDS: hydrALAZINE 20 MG/1 ML INJ IV PRN ×2 (05:11→22:37)
[2020-02-09] MEDS: INSULIN REGULAR, HUMAN 100 UNITS/1 ML SUB-Q SCH ×4 (07:57→22:28)
[2020-02-09] MEDS: HALOPERIDOL LACTATE 5 MG/1 ML INJ IM PRN (09:39)
[2020-02-09] MEDS: LISINOPRIL 40 MG TAB PO SCH (09:57)
[2020-02-09] MEDS: ASPIRIN 325 MG TAB PO SCH (09:57)
[2020-02-09] MEDS: amLODIPine 10 MG TAB PO SCH (09:57)
--- NOTE | 2020-02-09 12:30 | Progress Note ---
Assessment and Plan Cultures: None A/P: 54-year-old male past medical history of hypertension, diabetes admitted with acute stroke and found to be asymptomatically positive for COVID-19. #COVID-19 infection: Asymptomatic, no acute findings on chest x-ray. Afebrile. On room air. Markers serial results all normal except slightly up LDH. No need for treatment at this time #Acute stroke: Management per primary #Diabetes: Tight glycemic control Recs: -No acute therapy indicated per asymptomatic COVID-19 at this time. -Continue precautions while inpatient -Okay for discharge from infectious disease standpoint. -to be d/c to [facility], patient wants to go home. I am signing off call me if questions Queenie Nava MD Infectious Diseases [facility] ([facility]) M [phone] O [phone] Subjective Date of service: 02/09/20 Principal diagnosis: COVID Interval history: Feels goo, wants to go home, no fever. Objective - Exam Narrative Exam: General appearance: Alert in NAD Eyes: anicteric sclerae, moist conjunctivae; no lid-lag; PERRLA HENT: Atraumatic; oropharynx clear Lungs: CTA, with normal respiratory effort and no intercostal retractions CV: RRR no murmur Abdomen: Soft, non-tender; no masses or hepatosplenomegaly Extremities: no edema, no cyanosis Skin: No rash. Psych: Appropriate affect, alert and oriented to person, place and time. Neuro: alert and oriented x 3. Moving all extermities - Constitutional Vitals: Vital Signs Temp Pulse Resp BP Pulse Ox 97.8 F 78 16 146/88 96 02/09/20 04:25 02/09/20 09:57 02/09/20 04:25 02/09/20 09:57 02/09/20 04:25 Temperature -Last 24 Hours Temperature 97.8 F Temperature 98.4 F Temperature 98 F Temperature 97.4 F - Labs CBC & Chem 7: 02/06/20 05:09 02/06/20 16:02 Labs: Abnormal lab results 02/08/20 02/08/20 02/09/20 Range/Units 13:28 21:53 07:51 POC Glucose 143 H 116 H (70-105) Lactate Dehydrogenase 252 H (91-180) units/L 02/09/20 Range/Units 11:17 POC Glucose 168 H (70-105) Lactate Dehydrogenase (91-180) units/L
--- NOTE | 2020-02-09 12:56 | Progress Note ---
Assessment and Plan Assessment and plan: Right basal ganglia lacunar infarct. Continue aspirin and statin. PT recommends subacute rehab. Covid-19 infection Asymptomatic Hypertension. Continue antihypertensive medications. Diabetes mellitus type 2. Continue Accu-Cheks and sliding scale insulin. Disposition. Subacute rehab when bed available. 02/01/2020. Echocardiogram reveals mild concentric left ventricular hypertrophy with EF of 55 to 60%. Normal bubble study without evidence of intracardiac or intrapulmonary communication. Carotid Doppler negative. MRI reveals 2.2 cm acute infarct involving the left middle cerebellar peduncle and anterior left cerebellum. Also, multiple old basal ganglia lacunar infarcts and mild to moder ate microvascular angiopathy. PT recommends KYE. Continue PT/OT. Await placement. 02/02/2020. Continue aspirin and Lipitor. PT/OT. Blood pressure control with lisinopril and Norvasc. Hydralazine PRN. Awaiting subacute rehab placement 02/03/2020 Patient with acute right basal ganglia infarct. patient needs acutee rehab placement. preconstruction manager says patient needs covid-19 test. Ordered. 02/04/20 Patient with acute ischemic stroke. Awaiting placement at acute rehab. Covid-19 test ordered ,awaiting. 02/05/20 Patient with acute ischemic stroke. He is medically stable to discharge to Subacute Rehab. awaiting placement. patient was agitated, Nurse says patient hit her, enrrique aguilar was called. Will start haldol prn, restraints, Psych following. Covid-19 positive 02/06/20 patient calm today. he is medically stable awaiting bed at SNF. Asymptomatic Covid-19 positive. 02/07/20 Patient with asymptomatic Covid-19 positive. He is awaiting SNF placement. 02/08/20 Patient with asymptomatic Covid-19 positive. No new complaints. He is awaiting SNF placement. 02/09/20 Patient is 54 yo presented with right sided weakness, diagnosed with acute stroke. Was to go to Rehab and Covid-19 test requested by Rehab, came back positive. he is asymptomatic. No cough, no fever, normal CXR. He is medically stable awaiting SNF placement. History Interval history: left sided weakness Episodes of agitation, Enrrique aguilar called on 02/05/20 Hospitalist Physical - Physical exam Narrative exam: GEN: Not in acute distress, obese, lying in bed HEENT: Normocephalic, atraumatic, Neck: supple, No JVD Lungs: Clear to auscultation bilaterally, heart;S1 and S2 reg, no murmurs, rubs or gallop Abd:soft, non tender, non distended, normal bowel sounds, Ext: No edema, no clubbing, no cyanosis, Neuro: Awake,alert,left sided weakness - Constitutional Vitals: Temp Pulse Resp BP Pulse Ox 97.8 F 78 16 146/88 96 02/09/20 04:25 02/09/20 09:57 02/09/20 04:25 02/09/20 09:57 02/09/20 04:25 General appearance: Present: no acute distress Results - Labs CBC & Chem 7: 02/06/20 05:09 02/06/20 16:02 Labs: Laboratory Last Values WBC 8.7 K/mm3 (4.5-11.0) 02/06/20 05:09 RBC 5.17 M/mm3 (3.65-5.03) H 02/06/20 05:09 Hgb 14.9 gm/dl (11.8-15.2) 02/06/20 05:09 Hct 43.0 % (35.5-45.6) 02/06/20 05:09 MCV 83 fl (84-94) L 02/06/20 05:09 MCH 29 pg (28-32) 02/06/20 05:09 MCHC 35 % (32-34) H 02/06/20 05:09 RDW 15.1 % (13.2-15.2) 02/06/20 05:09 Plt Count 354 K/mm3 (140-440) 02/06/20 05:09 Lymph % (Auto) 39.7 % (13.4-35.0) H 01/29/20 23:06 [place] % (Auto) 14.7 % (0.0-7.3) H 01/29/20 23:06 Eos % (Auto) 2.1 % (0.0-4.3) 01/29/20 23:06 Baso % (Auto) 1.1 % (0.0-1.8) 01/29/20 23:06 Lymph # 2.8 K/mm3 (1.2-5.4) 01/29/20 23:06 Atlantic # 1.0 K/mm3 (0.0-0.8) H 01/29/20 23:06 Eos # 0.1 K/mm3 (0.0-0.4) 01/29/20 23:06 Baso # 0.1 K/mm3 (0.0-0.1) 01/29/20 23:06 Seg Neutrophils % 42.4 % (40.0-70.0) 01/29/20 23:06 Seg Neutrophils # 3.0 K/mm3 (1.8-7.7) 01/29/20 23:06 PT 14.0 Sec. (12.2-14.9) 01/29/20 23:06 INR 1.07 (0.87-1.13) 01/29/20 23:06 APTT 27.5 Sec. (24.2-36.6) 01/29/20 23:06 Thrombin Time 15.8 Sec. (15.1-19.6) 01/29/20 23:06 D-Dimer 173.65 ng/mlDDU (0-234) 02/08/20 13:28 Sodium 140 mmol/L (137-145) 02/06/20 05:09 Potassium 3.6 mmol/L (3.6-5.0) 02/06/20 16:02 Chloride 104.7 mmol/L (98-107) 02/06/20 05:09 Carbon Dioxide 21 mmol/L (22-30) L 02/06/20 05:09 Anion Gap 18 mmol/L 02/06/20 05:09 BUN 16 mg/dL (9-20) 02/06/20 05:09 Creatinine 0.9 mg/dL (0.8-1.5) 02/06/20 05:09 Estimated GFR > 60 ml/min 02/06/20 05:09 BUN/Creatinine Ratio 18 % 02/06/20 05:09 Glucose 135 mg/dL (75-100) H 02/06/20 05:09 POC Glucose 168 (70-105) H 02/09/20 11:17 Calcium 9.6 mg/dL (8.4-10.2) 02/06/20 05:09 Magnesium 2.30 mg/dL (1.7-2.3) 02/06/20 16:02 Ferritin 265.5 ng/mL (13.0-400.0) 02/08/20 13:28 Lactate Dehydrogenase 252 units/L (91-180) H 02/08/20 13:28 Troponin T < 0.010 ng/mL (0.00-0.029) 01/29/20 23:06 C-Reactive Protein < 0.03 mg/dL (0.00-1.30) 02/08/20 13:28 Triglycerides 293 mg/dL (2-149) H 01/30/20 13:26 Cholesterol 162 mg/dL (50-199) 01/30/20 13:26 LDL Cholesterol Direct 105 mg/dL (50-130) 01/30/20 13:26 HDL Cholesterol 31 mg/dL (40-59) L 01/30/20 13:26 Cholesterol/HDL Ratio 5.22 % 01/30/20 13:26 Procalcitonin < 0.05 ng/mL (<0.15) 02/04/20 14:59 Nasal Screen MRSA (PCR) Negative (Negative) 01/30/20 04:50 Urine Opiates Screen Presumptive negative 02/02/20 Unknown Urine Methadone Screen Presumptive negative 02/02/20 Unknown Ur Barbiturates Screen Presumptive negative 02/02/20 Unknown Ur Phencyclidine Scrn Presumptive negative 02/02/20 Unknown Ur Amphetamines Screen Presumptive positive 02/02/20 Unknown U Benzodiazepines Scrn Presumptive negative 02/02/20 Unknown Urine Cocaine Screen Presumptive negative 02/02/20 Unknown U Marijuana (THC) Screen Presumptive negative 02/02/20 Unknown Drugs of Abuse Note Disclamer 02/02/20 Unknown Coronavirus (PCR) Positive (Negative) A 02/03/20 08:32 - Diagnostic Impressions Diagnostic Impressions: Echocardiogram 01/30/20 06:00 Transthoracic Echocardiogram Indication: Brain infarct BP: 185/94 HR: 72 Conclusions *Mild concentric left ventricular hypertrophy is observed. *Global left ventricular systolic function is normal. *The estimated ejection fraction is 55-60%. *Abnormal left ventricular diastolic filling is observed, consistent with impaired relaxation. *There is mild aortic regurgitation. *There is no pericardial effusion. *Normal bubble study without evidence of intracardiac or intrapulmonary communication Findings Left Ventricle: The left ventricular chamber size is normal. Mild concentric left ventricular hypertrophy is observed. Global left ventricular systolic function is normal. The estimated ejection fraction is 55-60%. Abnormal left ventricular diastolic filling is observed, consistent with impaired relaxation. Left Atrium: The left atrial chamber size is normal. Right Ventricle: The right ventricular cavity size is normal. The right ventricular global systolic function is normal. Right Atrium: The right atrial cavity size is normal. No atrial septal defected is demonstrated by agitated saline contrast. Aortic Valve: The aortic valve is trileaflet. There is mild aortic regurgitation. Mitral Valve: The mitral valve leaflets are mildly thickened. There is trace of mitral regurgitation. Tricuspid Valve: The tricuspid valve leaflets are normal. There is trace tricuspid regurgitation. The right ventricular systolic pressure is calculated at 21 mmHg. Pulmonic Valve: The pulmonic valve appears normal. There is no evidence of pulmonic regurgitation. Pericardium: There is no pericardial effusion. There is a minimial pericardial effusion. Aorta: There is no dilatation of the ascending aorta. There is no dilatation of the aortic root. Venous: The inferior vena cava appears normal in size. There is a greater than 50% respiratory change in the inferior vena cava dimension. Measurements Chambers 2D Name Value Normal Range IVSd (2D) 1.26 cm (0.6 - 1.1) LVPWd (2D) 1.28 cm (0.6 - 1.1) LVIDd (2D) 4.16 cm (3.7 - 5.6) LVIDs (2D) 2.61 cm (2 - 3.8) LV FS (2D) 37.36 % - EF Teichholz (2D) 67.78 % - Ao root diameter (2D) 3.66 cm (2 - 3.7) Volumes/Mass Name Value Normal Range LA ESV SP 4CH (A/L) 47.43 ml - LA ESV SP 2CH (A/L) 49.43 ml - LA ESV BP (A/L) 50.34 ml - LA ESV BP (A/L) index 25.42 ml/m2 - LA ESV SP 4CH (MOD) 43.41 ml - LA ESV SP 2CH (MOD) 46.74 ml - LA ESV BP (MOD) 46.78 ml - LA ESV BP (MOD) index 23.63 ml/m2 - Diastolic/Systolic Function Name Value Normal Range MV E-wave Vmax 0.7 m/sec - MV deceleration time 237.63 msec - MV A-wave Vmax 0.85 m/sec - MV E:A ratio 0.82 ratio - Aortic Valve Name Value Normal Range AV Vmax 1.4 m/sec - AV VTI 24.22 cm - AV peak gradient 7.8 mmHg - AV mean gradient 4.66 mmHg - LVOT diameter 2.1 cm - LVOT Vmax 1.24 m/sec - LVOT VTI 28.19 cm - LVOT peak gradient 6.15 mmHg - LVOT mean gradient 3.55 mmHg - SV LVOT 97.55 ml - KETURAH (continuity Vmax) 3.07 cm2 - KETURAH (continuity VTI) 4.03 cm2 - AR PHT 535.67 msec - AR peak gradient 64.79 mmHg - Tricuspid Valve Name Value Normal Range TR Vmax 2.13 m/sec - TR peak gradient 18 mmHg - RAP 3 mmHg - RVSP 21 mmHg - IVC diameter 1.81 cm (1.2 - 2.3) Pulmonic Valve/Qp:Qs Name Value Normal Range PV Vmax 1.06 m/sec - PV peak gradient 4.47 mmHg - PV acceleration time 133.21 msec - Akhtar/IV: Voiding Method Urinal IV Catheter Type [Right Upper INT / Saline Lock arm] IV Catheter Type [Right Peripheral IV Forearm] IV Catheter Type [Left Forearm INT / Saline Lock ] IV Catheter Type [Right Hand] INT / Saline Lock IV Catheter Type [Left INT / Saline Lock Antecubital] Active Medications - Current Medications Current Medications: Generic Name Dose Route Start Last Admin Trade Name Freq PRN Reason Stop Dose Admin Acetaminophen 650 mg 01/30/20 02:02 Tylenol NM Q4H PRN Fever >101 Acetaminophen 650 mg 02/03/20 23:39 02/07/20 19:41 Tylenol PO 650 mg Q4H PRN Administration Pain, Mild (1-3) Amlodipine Besylate 10 mg 01/30/20 10:00 02/09/20 09:57 Amlodipine PO 10 mg DAILY MATEUSZ Administration Aspirin 325 mg 01/30/20 10:00 02/09/20 09:57 Aspirin PO 325 mg QDAY MATEUSZ Administration Atorvastatin Calcium 40 mg 01/30/20 10:00 02/09/20 09:56 Lipitor PO 40 mg QDAY MATEUSZ Administration Dextrose 0 ml 01/30/20 02:05 D50w (25gm) Syringe IV Q30MIN PRN Hypoglycemia Protocol Fish Oil 2,000 mg 02/02/20 12:00 02/08/20 23:41 Fish Oil PO 2,000 mg BID MATEUSZ Administration Haloperidol Lactate 5 mg 02/05/20 12:56 02/09/20 09:39 Haldol IM 5 mg Q6H PRN Administration Agitation Hydralazine HCl 10 mg 01/31/20 22:21 02/09/20 05:11 Apresoline IV 10 mg Q6H PRN Administration Blood Pressure Insulin Human Regular 0 units 02/06/20 11:30 02/09/20 12:28 Humulin R SUB-Q Not Given ACHS MATEUSZ Protocol Lisinopril 40 mg 01/30/20 10:00 02/09/20 09:57 Zestril PO 40 mg QDAY MATEUSZ Administration Melatonin 5 mg 02/02/20 11:47 02/03/20 23:40 Melatonin PO 5 mg QHS PRN Administration Sleep Naphazoline HCl/Pheniramine Maleate 2 drops 02/06/20 12:22 02/08/20 03:00 Visine-A OU 2 drops Q6H PRN Administration redness Ondansetron HCl 4 mg 01/30/20 02:02 02/03/20 21:06 Zofran IV 4 mg Q8H PRN Administration Nausea And Vomiting Zolpidem Tartrate 5 mg 01/31/20 22:21 02/08/20 22:06 Ambien PO 5 mg QHS PRN Administration Sleep Nutrition/Malnutrition Assess - Dietary Evaluation Nutrition/Malnutrition Findings: Nutrition Notes Start: 02/06/20 11:30 Freq: Status: Active Protocol: Document 02/06/20 11:30 LM (Rec: 02/06/20 11:31 LM [email or web address]) Nutrition Notes Need for Assessment generated from: LOS Initial or Follow up Brief Note Subjective/Other Information Screen for LOS. Pt with 75-100 % intakes in chart. Nutrition Intervention Revisit per MD consult or patient Sign Off request:
[2020-02-09] MEDS: OMEGA-3 FATTY ACIDS/FISH OIL 1 GRAM CAP PO SCH ×2 (18:46→22:29)
[2020-02-10] MEDS: hydrALAZINE 20 MG/1 ML INJ IV PRN ×2 (05:29→21:28)
[2020-02-10] MEDS: INSULIN REGULAR, HUMAN 100 UNITS/1 ML SUB-Q SCH ×4 (08:32→21:27)
[2020-02-10] MEDS: OMEGA-3 FATTY ACIDS/FISH OIL 1 GRAM CAP PO SCH ×2 (09:40→20:59)
[2020-02-10] MEDS: ASPIRIN 325 MG TAB PO SCH (09:40)
[2020-02-10] MEDS: LISINOPRIL 40 MG TAB PO SCH (09:41)
[2020-02-10] MEDS: amLODIPine 10 MG TAB PO SCH (09:41)
--- NOTE | 2020-02-10 13:49 | Progress Note ---
Assessment and Plan Assessment and plan: Right basal ganglia lacunar infarct. Continue aspirin and statin. Follow-up CTA of neck and echocardiogram. Follow-up TSH T4. PT/OT. PT recommends subacute rehab. Covid-19 infection Asymptomatic Hypertension. Continue antihypertensive medications. Diabetes mellitus type 2. Continue Accu-Cheks and sliding scale insulin. Disposition. Subacute rehab when bed available. 02/01/2020. Echocardiogram reveals mild concentric left ventricular hypertrophy with EF of 55 to 60%. Normal bubble study without evidence of intracardiac or intrapulmonary communication. Carotid Doppler negative. MRI reveals 2.2 cm acute infarct involving the left middle cerebellar peduncle and anterior left cerebellum. Also, multiple old basal ganglia lacunar infarcts and mild to moderate microvascular angiopathy. PT recommends KYE. Continue PT/OT. Await placement. 02/02/2020. Continue aspirin and Lipitor. PT/OT. Blood pressure control with lisinopril and Norvasc. Hydralazine PRN. Awaiting subacute rehab placement 02/03/2020 Patient with acute right basal ganglia infarct. patient needs acutee rehab placement. manager immunology says patient needs covid-19 test. Ordered. 02/04/20 Patient with acute ischemic stroke. Awaiting placement at acute rehab. Covid-19 test ordered ,awaiting. 02/05/20 Patient with acute ischemic stroke. He is medically stable to discharge to Subacute Rehab. awaiting placement. patient was agitated, Nurse says patient hit her, code aguilar was called. Will start haldol prn, restraints, Psych following. Covid-19 positive 02/06/20 patient calm today. he is medically stable awaiting bed at SNF. Asymptomatic Covid-19 positive. 02/07/20 Patient with asymptomatic Covid-19 positive. He is awaiting SNF placement. 02/08/20 Patient with asymptomatic Covid-19 positive. No new complaints. He is awaiting SNF placement. 02/09/20 Patient is 54 yo presented with right sided weakness, diagnosed with acute stroke. Was to go to Rehab and Covid-19 test requested by Rehab, came back positive. he is asymptomatic. No cough, no fever, normal CXR. He is medically stable awaiting SNF placement. 02/10/2020. Case management working on bed placement. Patient otherwise stable. History Interval history: No new issues Hospitalist Physical - Constitutional Vitals: Temp Pulse Resp BP Pulse Ox 98.6 F 76 18 156/76 97 02/10/20 11:55 02/10/20 11:55 02/10/20 11:55 02/10/20 11:55 02/10/20 11:55 General appearance: Present: no acute distress - EENT Eyes: Present: PERRL, EOM intact ENT: hearing intact, clear oral mucosa, dentition normal - Neck Neck: Present: supple, normal ROM - Respiratory Respiratory effort: normal Respiratory: bilateral: CTA - Cardiovascular Rhythm: regular Heart Sounds: Present: S1 & S2. Absent: gallop, rub - Extremities Extremities: no ischemia, No edema, Full ROM - Abdominal General gastrointestinal: soft, non-tender, non-distended, normal bowel sounds - Integumentary Integumentary: Present: clear, warm, dry - Neurologic Neurologic: CNII-XII intact, moves all extremities Results - Labs CBC & Chem 7: 02/06/20 05:09 02/06/20 16:02 Labs: Laboratory Last Values WBC 8.7 K/mm3 (4.5-11.0) 02/06/20 05:09 RBC 5.17 M/mm3 (3.65-5.03) H 02/06/20 05:09 Hgb 14.9 gm/dl (11.8-15.2) 02/06/20 05:09 Hct 43.0 % (35.5-45.6) 02/06/20 05:09 MCV 83 fl (84-94) L 02/06/20 05:09 MCH 29 pg (28-32) 02/06/20 05:09 MCHC 35 % (32-34) H 02/06/20 05:09 RDW 15.1 % (13.2-15.2) 02/06/20 05:09 Plt Count 354 K/mm3 (140-440) 02/06/20 05:09 Lymph % (Auto) 39.7 % (13.4-35.0) H 01/29/20 23:06 Richardson % (Auto) 14.7 % (0.0-7.3) H 01/29/20 23:06 Eos % (Auto) 2.1 % (0.0-4.3) 01/29/20 23:06 Baso % (Auto) 1.1 % (0.0-1.8) 01/29/20 23:06 Lymph # 2.8 K/mm3 (1.2-5.4) 01/29/20 23:06 Richardson # 1.0 K/mm3 (0.0-0.8) H 01/29/20 23:06 Eos # 0.1 K/mm3 (0.0-0.4) 01/29/20 23:06 Baso # 0.1 K/mm3 (0.0-0.1) 01/29/20 23:06 Seg Neutrophils % 42.4 % (40.0-70.0) 01/29/20 23:06 Seg Neutrophils # 3.0 K/mm3 (1.8-7.7) 01/29/20 23:06 PT 14.0 Sec. (12.2-14.9) 01/29/20 23:06 INR 1.07 (0.87-1.13) 01/29/20 23:06 APTT 27.5 Sec. (24.2-36.6) 01/29/20 23:06 Thrombin Time 15.8 Sec. (15.1-19.6) 01/29/20 23:06 D-Dimer 173.65 ng/mlDDU (0-234) 02/08/20 13:28 Sodium 140 mmol/L (137-145) 02/06/20 05:09 Potassium 3.6 mmol/L (3.6-5.0) 02/06/20 16:02 Chloride 104.7 mmol/L (98-107) 02/06/20 05:09 Carbon Dioxide 21 mmol/L (22-30) L 02/06/20 05:09 Anion Gap 18 mmol/L 02/06/20 05:09 BUN 16 mg/dL (9-20) 02/06/20 05:09 Creatinine 0.9 mg/dL (0.8-1.5) 02/06/20 05:09 Estimated GFR > 60 ml/min 02/06/20 05:09 BUN/Creatinine Ratio 18 % 02/06/20 05:09 Glucose 135 mg/dL (75-100) H 02/06/20 05:09 POC Glucose 242 (70-105) H 02/10/20 12:05 Calcium 9.6 mg/dL (8.4-10.2) 02/06/20 05:09 Magnesium 2.30 mg/dL (1.7-2.3) 02/06/20 16:02 Ferritin 265.5 ng/mL (13.0-400.0) 02/08/20 13:28 Lactate Dehydrogenase 252 units/L (91-180) H 02/08/20 13:28 Troponin T < 0.010 ng/mL (0.00-0.029) 01/29/20 23:06 C-Reactive Protein < 0.03 mg/dL (0.00-1.30) 02/08/20 13:28 Triglycerides 293 mg/dL (2-149) H 01/30/20 13:26 Cholesterol 162 mg/dL (50-199) 01/30/20 13:26 LDL Cholesterol Direct 105 mg/dL (50-130) 01/30/20 13:26 HDL Cholesterol 31 mg/dL (40-59) L 01/30/20 13:26 Cholesterol/HDL Ratio 5.22 % 01/30/20 13:26 Procalcitonin < 0.05 ng/mL (<0.15) 02/04/20 14:59 Nasal Screen MRSA (PCR) Negative (Negative) 01/30/20 04:50 Urine Opiates Screen Presumptive negative 02/02/20 Unknown Urine Methadone Screen Presumptive negative 02/02/20 Unknown Ur Barbiturates Screen Presumptive negative 02/02/20 Unknown Ur Phencyclidine Scrn Presumptive negative 02/02/20 Unknown Ur Amphetamines Screen Presumptive positive 02/02/20 Unknown U Benzodiazepines Scrn Presumptive negative 02/02/20 Unknown Urine Cocaine Screen Presumptive negative 02/02/20 Unknown U Marijuana (THC) Screen Presumptive negative 02/02/20 Unknown Drugs of Abuse Note Disclamer 02/02/20 Unknown Coronavirus (PCR) Positive (Negative) A 02/03/20 08:32 - Diagnostic Impressions Diagnostic Impressions: Echocardiogram 01/30/20 06:00 Transthoracic Echocardiogram Indication: Brain infarct BP: 185/94 HR: 72 Conclusions *Mild concentric left ventricular hypertrophy is observed. *Global left ventricular systolic function is normal. *The estimated ejection fraction is 55-60%. *Abnormal left ventricular diastolic filling is observed, consistent with impaired relaxation. *There is mild aortic regurgitation. *There is no pericardial effusion. *Normal bubble study without evidence of intracardiac or intrapulmonary communication Findings Left Ventricle: The left ventricular chamber size is normal. Mild concentric left ventricular hypertrophy is observed. Global left ventricular systolic function is normal. The estimated ejection fraction is 55-60%. Abnormal left ventricular diastolic filling is observed, consistent with impaired relaxation. Left Atrium: The left atrial chamber size is normal. Right Ventricle: The right ventricular cavity size is normal. The right ventricular global systolic function is normal. Right Atrium: The right atrial cavity size is normal. No atrial septal defected is demonstrated by agitated saline contrast. Aortic Valve: The aortic valve is trileaflet. There is mild aortic regurgitation. Mitral Valve: The mitral valve leaflets are mildly thickened. There is trace of mitral regurgitation. Tricuspid Valve: The tricuspid valve leaflets are normal. There is trace tricuspid regurgitation. The right ventricular systolic pressure is calculated at 21 mmHg. Pulmonic Valve: The pulmonic valve appears normal. There is no evidence of pulmonic regurgitation. Pericardium: There is no pericardial effusion. There is a minimial pericardial effusion. Aorta: There is no dilatation of the ascending aorta. There is no dilatation of the aortic root. Venous: The inferior vena cava appears normal in size. There is a greater than 50% respiratory change in the inferior vena cava dimension. Measurements Chambers 2D Name Value Normal Range IVSd (2D) 1.26 cm (0.6 - 1.1) LVPWd (2D) 1.28 cm (0.6 - 1.1) LVIDd (2D) 4.16 cm (3.7 - 5.6) LVIDs (2D) 2.61 cm (2 - 3.8) LV FS (2D) 37.36 % - EF Teichholz (2D) 67.78 % - Ao root diameter (2D) 3.66 cm (2 - 3.7) Volumes/Mass Name Value Normal Range LA ESV SP 4CH (A/L) 47.43 ml - LA ESV SP 2CH (A/L) 49.43 ml - LA ESV BP (A/L) 50.34 ml - LA ESV BP (A/L) index 25.42 ml/m2 - LA ESV SP 4CH (MOD) 43.41 ml - LA ESV SP 2CH (MOD) 46.74 ml - LA ESV BP (MOD) 46.78 ml - LA ESV BP (MOD) index 23.63 ml/m2 - Diastolic/Systolic Function Name Value Normal Range MV E-wave Vmax 0.7 m/sec - MV deceleration time 237.63 msec - MV A-wave Vmax 0.85 m/sec - MV E:A ratio 0.82 ratio - Aortic Valve Name Value Normal Range AV Vmax 1.4 m/sec - AV VTI 24.22 cm - AV peak gradient 7.8 mmHg - AV mean gradient 4.66 mmHg - LVOT diameter 2.1 cm - LVOT Vmax 1.24 m/sec - LVOT VTI 28.19 cm - LVOT peak gradient 6.15 mmHg - LVOT mean gradient 3.55 mmHg - SV LVOT 97.55 ml - KETURAH (continuity Vmax) 3.07 cm2 - KETURAH (continuity VTI) 4.03 cm2 - AR PHT 535.67 msec - AR peak gradient 64.79 mmHg - Tricuspid Valve Name Value Normal Range TR Vmax 2.13 m/sec - TR peak gradient 18 mmHg - RAP 3 mmHg - RVSP 21 mmHg - IVC diameter 1.81 cm (1.2 - 2.3) Pulmonic Valve/Qp:Qs Name Value Normal Range PV Vmax 1.06 m/sec - PV peak gradient 4.47 mmHg - PV acceleration time 133.21 msec - Akhtar/IV: Voiding Method Urinal IV Catheter Type [Right Upper INT / Saline Lock arm] IV Catheter Type [Right Peripheral IV Forearm] IV Catheter Type [Left Forearm INT / Saline Lock ] IV Catheter Type [Right Hand] INT / Saline Lock IV Catheter Type [Left INT / Saline Lock Antecubital] Active Medications - Current Medications Current Medications: Generic Name Dose Route Start Last Admin Trade Name Freq PRN Reason Stop Dose Admin Acetaminophen 650 mg 01/30/20 02:02 Tylenol OK Q4H PRN Fever >101 Acetaminophen 650 mg 02/03/20 23:39 02/07/20 19:41 Tylenol PO 650 mg Q4H PRN Administration Pain, Mild (1-3) Amlodipine Besylate 10 mg 01/30/20 10:00 02/10/20 09:41 Amlodipine PO 10 mg DAILY MATEUSZ Administration Aspirin 325 mg 01/30/20 10:00 02/10/20 09:40 Aspirin PO 325 mg QDAY MATEUSZ Administration Atorvastatin Calcium 40 mg 01/30/20 10:00 02/10/20 09:41 Lipitor PO 40 mg QDAY MATEUSZ Administration Dextrose 0 ml 01/30/20 02:05 D50w (25gm) Syringe IV Q30MIN PRN Hypoglycemia Protocol Fish Oil 2,000 mg 02/02/20 12:00 02/10/20 09:40 Fish Oil PO 2,000 mg BID MATEUSZ Administration Haloperidol Lactate 5 mg 02/05/20 12:56 02/09/20 09:39 Haldol IM 5 mg Q6H PRN Administration Agitation Hydralazine HCl 10 mg 01/31/20 22:21 02/10/20 05:29 Apresoline IV 10 mg Q6H PRN Administration Blood Pressure Insulin Human Regular 0 units 02/06/20 11:30 02/10/20 12:20 Humulin R SUB-Q 2 units ACHS MATEUSZ Administration Protocol Lisinopril 40 mg 01/30/20 10:00 02/10/20 09:41 Zestril PO 40 mg QDAY MATEUSZ Administration Melatonin 5 mg 02/02/20 11:47 02/03/20 23:40 Melatonin PO 5 mg QHS PRN Administration Sleep Naphazoline HCl/Pheniramine Maleate 2 drops 02/06/20 12:22 02/08/20 03:00 Visine-A OU 2 drops Q6H PRN Administration redness Ondansetron HCl 4 mg 01/30/20 02:02 02/03/20 21:06 Zofran IV 4 mg Q8H PRN Administration Nausea And Vomiting Zolpidem Tartrate 5 mg 01/31/20 22:21 02/08/20 22:06 Ambien PO 5 mg QHS PRN Administration Sleep Nutrition/Malnutrition Assess - Dietary Evaluation Nutrition/Malnutrition Findings: Nutrition Notes Start: 02/06/20 11:30 Freq: Status: Active Protocol: Document 02/06/20 11:30 LM (Rec: 02/06/20 11:31 LM [email or web address]) Nutrition Notes Need for Assessment generated from: LOS Initial or Follow up Brief Note Subjective/Other Information Screen for LOS. Pt with 75-100 % intakes in chart. Nutrition Intervention Revisit per MD consult or patient Sign Off request:
[2020-02-10] MEDS: ACETAMINOPHEN 325 MG TAB PO PRN (20:31)
[2020-02-10] MEDS: MELATONIN 5 MG TAB PO PRN (21:00)
[2020-02-10] MEDS: NAPHAZOLINE/PHENIRAMINE 0.025/0.3% OPHTH SOLN 15 ML OU PRN (21:28)
[2020-02-11] MEDS: INSULIN REGULAR, HUMAN 100 UNITS/1 ML SUB-Q SCH ×4 (07:59→22:45)
[2020-02-11] MEDS: OMEGA-3 FATTY ACIDS/FISH OIL 1 GRAM CAP PO SCH ×2 (09:15→22:30)
[2020-02-11] MEDS: ASPIRIN 325 MG TAB PO SCH (09:15)
[2020-02-11] MEDS: LISINOPRIL 40 MG TAB PO SCH (09:20)
[2020-02-11] MEDS: amLODIPine 10 MG TAB PO SCH (09:20)
--- NOTE | 2020-02-11 12:25 | Progress Note ---
Assessment and Plan Assessment and plan: Right basal ganglia lacunar infarct. Continue aspirin and statin. Follow-up CTA of neck and echocardiogram. Follow-up TSH T4. PT/OT. PT recommends subacute rehab. Covid-19 infection Asymptomatic Hypertension. Continue antihypertensive medications. Diabetes mellitus type 2. Continue Accu-Cheks and sliding scale insulin. Disposition. Subacute rehab when bed available. 02/01/2020. Echocardiogram reveals mild concentric left ventricular hypertrophy with EF of 55 to 60%. Normal bubble study without evidence of intracardiac or intrapulmonary communication. Carotid Doppler negative. MRI reveals 2.2 cm acute infarct involving the left middle cerebellar peduncle and anterior left cerebellum. Also, multiple old basal ganglia lacunar infarcts and mild to moderate microvascular angiopathy. PT recommends KYE. Continue PT/OT. Await placement. 02/02/2020. Continue aspirin and Lipitor. PT/OT. Blood pressure control with lisinopril and Norvasc. Hydralazine PRN. Awaiting subacute rehab placement 02/03/2020 Patient with acute right basal ganglia infarct. patient needs acutee rehab placement. manager statistical programming says patient needs covid-19 test. Ordered. 02/04/20 Patient with acute ischemic stroke. Awaiting placement at acute rehab. Covid-19 test ordered ,awaiting. 02/05/20 Patient with acute ischemic stroke. He is medically stable to discharge to Subacute Rehab. awaiting placement. patient was agitated, Nurse says patient hit her, code aguilar was called. Will start haldol prn, restraints, Psych following. Covid-19 positive 02/06/20 patient calm today. he is medically stable awaiting bed at SNF. Asymptomatic Covid-19 positive. 02/07/20 Patient with asymptomatic Covid-19 positive. He is awaiting SNF placement. 02/08/20 Patient with asymptomatic Covid-19 positive. No new complaints. He is awaiting SNF placement. 02/09/20 Patient is 54 yo presented with right sided weakness, diagnosed with acute stroke. Was to go to Rehab and Covid-19 test requested by Rehab, came back positive. he is asymptomatic. No cough, no fever, normal CXR. He is medically stable awaiting SNF placement. 02/10/2020. Case management working on bed placement. Patient otherwise stable. 02/11/2020. Patient is 54 yo presented with right sided weakness, diagnosed with acute stroke. Was to go to Rehab and Covid-19 test requested by Rehab, came back positive. he is asymptomatic. No cough, no fever, normal CXR. He is medically stable awaiting SNF placement. History Interval history: No new issues Hospitalist Physical - Constitutional Vitals: Temp Pulse Resp BP Pulse Ox 97.6 F 66 20 176/96 97 02/11/20 12:07 02/11/20 12:07 02/11/20 12:07 02/11/20 12:02/11/20 12:07 General appearance: Present: no acute distress - EENT Eyes: Present: PERRL, EOM intact ENT: hearing intact, clear oral mucosa, dentition normal - Neck Neck: Present: supple, normal ROM - Respiratory Respiratory effort: normal Respiratory: bilateral: CTA - Cardiovascular Rhythm: regular Heart Sounds: Present: S1 & S2. Absent: gallop, rub - Extremities Extremities: no ischemia, No edema, Full ROM - Abdominal General gastrointestinal: soft, non-tender, non-distended, normal bowel sounds - Integumentary Integumentary: Present: clear, warm, dry - Neurologic Neurologic: CNII-XII intact, moves all extremities Results - Labs CBC & Chem 7: 02/06/20 05:09 02/06/20 16:02 Labs: Laboratory Last Values WBC 8.7 K/mm3 (4.5-11.0) 02/06/20 05:09 RBC 5.17 M/mm3 (3.65-5.03) H 02/06/20 05:09 Hgb 14.9 gm/dl (11.8-15.2) 02/06/20 05:09 Hct 43.0 % (35.5-45.6) 02/06/20 05:09 MCV 83 fl (84-94) L 02/06/20 05:09 MCH 29 pg (28-32) 02/06/20 05:09 MCHC 35 % (32-34) H 02/06/20 05:09 RDW 15.1 % (13.2-15.2) 02/06/20 05:09 Plt Count 354 K/mm3 (140-440) 02/06/20 05:09 Lymph % (Auto) 39.7 % (13.4-35.0) H 01/29/20 23:06 [place] % (Auto) 14.7 % (0.0-7.3) H 01/29/20 23:06 Eos % (Auto) 2.1 % (0.0-4.3) 01/29/20 23:06 Baso % (Auto) 1.1 % (0.0-1.8) 01/29/20 23:06 Lymph # 2.8 K/mm3 (1.2-5.4) 01/29/20 23:06 [place] # 1.0 K/mm3 (0.0-0.8) H 01/29/20 23:06 Eos # 0.1 K/mm3 (0.0-0.4) 01/29/20 23:06 Baso # 0.1 K/mm3 (0.0-0.1) 01/29/20 23:06 Seg Neutrophils % 42.4 % (40.0-70.0) 01/29/20 23:06 Seg Neutrophils # 3.0 K/mm3 (1.8-7.7) 01/29/20 23:06 PT 14.0 Sec. (12.2-14.9) 01/29/20 23:06 INR 1.07 (0.87-1.13) 01/29/20 23:06 APTT 27.5 Sec. (24.2-36.6) 01/29/20 23:06 Thrombin Time 15.8 Sec. (15.1-19.6) 01/29/20 23:06 D-Dimer 173.65 ng/mlDDU (0-234) 02/08/20 13:28 Sodium 140 mmol/L (137-145) 02/06/20 05:09 Potassium 3.6 mmol/L (3.6-5.0) 02/06/20 16:02 Chloride 104.7 mmol/L (98-107) 02/06/20 05:09 Carbon Dioxide 21 mmol/L (22-30) L 02/06/20 05:09 Anion Gap 18 mmol/L 02/06/20 05:09 BUN 16 mg/dL (9-20) 02/06/20 05:09 Creatinine 0.9 mg/dL (0.8-1.5) 02/06/20 05:09 Estimated GFR > 60 ml/min 02/06/20 05:09 BUN/Creatinine Ratio 18 % 02/06/20 05:09 Glucose 135 mg/dL (75-100) H 02/06/20 05:09 POC Glucose 178 (70-105) H 02/11/20 12:20 Calcium 9.6 mg/dL (8.4-10.2) 02/06/20 05:09 Magnesium 2.30 mg/dL (1.7-2.3) 02/06/20 16:02 Ferritin 265.5 ng/mL (13.0-400.0) 02/08/20 13:28 Lactate Dehydrogenase 252 units/L (91-180) H 02/08/20 13:28 Troponin T < 0.010 ng/mL (0.00-0.029) 01/29/20 23:06 C-Reactive Protein < 0.03 mg/dL (0.00-1.30) 02/08/20 13:28 Triglycerides 293 mg/dL (2-149) H 01/30/20 13:26 Cholesterol 162 mg/dL (50-199) 01/30/20 13:26 LDL Cholesterol Direct 105 mg/dL (50-130) 01/30/20 13:26 HDL Cholesterol 31 mg/dL (40-59) L 01/30/20 13:26 Cholesterol/HDL Ratio 5.22 % 01/30/20 13:26 Procalcitonin < 0.05 ng/mL (<0.15) 02/04/20 14:59 Nasal Screen MRSA (PCR) Negative (Negative) 01/30/20 04:50 Urine Opiates Screen Presumptive negative 02/02/20 Unknown Urine Methadone Screen Presumptive negative 02/02/20 Unknown Ur Barbiturates Screen Presumptive negative 02/02/20 Unknown Ur Phencyclidine Scrn Presumptive negative 02/02/20 Unknown Ur Amphetamines Screen Presumptive positive 02/02/20 Unknown U Benzodiazepines Scrn Presumptive negative 02/02/20 Unknown Urine Cocaine Screen Presumptive negative 02/02/20 Unknown U Marijuana (THC) Screen Presumptive negative 02/02/20 Unknown Drugs of Abuse Note Disclamer 02/02/20 Unknown Coronavirus (PCR) Positive (Negative) A 02/03/20 08:32 - Diagnostic Impressions Diagnostic Impressions: Echocardiogram 01/30/20 06:00 Transthoracic Echocardiogram Indication: Brain infarct BP: 185/94 HR: 72 Conclusions *Mild concentric left ventricular hypertrophy is observed. *Global left ventricular systolic function is normal. *The estimated ejection fraction is 55-60%. *Abnormal left ventricular diastolic filling is observed, consistent with impaired relaxation. *There is mild aortic regurgitation. *There is no pericardial effusion. *Normal bubble study without evidence of intracardiac or intrapulmonary communication Findings Left Ventricle: The left ventricular chamber size is normal. Mild concentric left ventricular hypertrophy is observed. Global left ventricular systolic function is normal. The estimated ejection fraction is 55-60%. Abnormal left ventricular diastolic filling is observed, consistent with impaired relaxation. Left Atrium: The left atrial chamber size is normal. Right Ventricle: The right ventricular cavity size is normal. The right ventricular global systolic function is normal. Right Atrium: The right atrial cavity size is normal. No atrial septal defected is demonstrated by agitated saline contrast. Aortic Valve: The aortic valve is trileaflet. There is mild aortic regurgitation. Mitral Valve: The mitral valve leaflets are mildly thickened. There is trace of mitral regurgitation. Tricuspid Valve: The tricuspid valve leaflets are normal. There is trace tricuspid regurgitation. The right ventricular systolic pressure is calculated at 21 mmHg. Pulmonic Valve: The pulmonic valve appears normal. There is no evidence of pulmonic regurgitation. Pericardium: There is no pericardial effusion. There is a minimial pericardial effusion. Aorta: There is no dilatation of the ascending aorta. There is no dilatation of the aortic root. Venous: The inferior vena cava appears normal in size. There is a greater than 50% respiratory change in the inferior vena cava dimension. Measurements Chambers 2D Name Value Normal Range IVSd (2D) 1.26 cm (0.6 - 1.1) LVPWd (2D) 1.28 cm (0.6 - 1.1) LVIDd (2D) 4.16 cm (3.7 - 5.6) LVIDs (2D) 2.61 cm (2 - 3.8) LV FS (2D) 37.36 % - EF Teichholz (2D) 67.78 % - Ao root diameter (2D) 3.66 cm (2 - 3.7) Volumes/Mass Name Value Normal Range LA ESV SP 4CH (A/L) 47.43 ml - LA ESV SP 2CH (A/L) 49.43 ml - LA ESV BP (A/L) 50.34 ml - LA ESV BP (A/L) index 25.42 ml/m2 - LA ESV SP 4CH (MOD) 43.41 ml - LA ESV SP 2CH (MOD) 46.74 ml - LA ESV BP (MOD) 46.78 ml - LA ESV BP (MOD) index 23.63 ml/m2 - Diastolic/Systolic Function Name Value Normal Range MV E-wave Vmax 0.7 m/sec - MV deceleration time 237.63 msec - MV A-wave Vmax 0.85 m/sec - MV E:A ratio 0.82 ratio - Aortic Valve Name Value Normal Range AV Vmax 1.4 m/sec - AV VTI 24.22 cm - AV peak gradient 7.8 mmHg - AV mean gradient 4.66 mmHg - LVOT diameter 2.1 cm - LVOT Vmax 1.24 m/sec - LVOT VTI 28.19 cm - LVOT peak gradient 6.15 mmHg - LVOT mean gradient 3.55 mmHg - SV LVOT 97.55 ml - KETURAH (continuity Vmax) 3.07 cm2 - KETURAH (continuity VTI) 4.03 cm2 - AR PHT 535.67 msec - AR peak gradient 64.79 mmHg - Tricuspid Valve Name Value Normal Range TR Vmax 2.13 m/sec - TR peak gradient 18 mmHg - RAP 3 mmHg - RVSP 21 mmHg - IVC diameter 1.81 cm (1.2 - 2.3) Pulmonic Valve/Qp:Qs Name Value Normal Range PV Vmax 1.06 m/sec - PV peak gradient 4.47 mmHg - PV acceleration time 133.21 msec - Akhtar/IV: Voiding Method Urinal IV Catheter Type [Right Upper INT / Saline Lock arm] IV Catheter Type [Right Peripheral IV Forearm] IV Catheter Type [Left Forearm INT / Saline Lock ] IV Catheter Type [Right Hand] INT / Saline Lock IV Catheter Type [Left INT / Saline Lock Antecubital] Active Medications - Current Medications Current Medications: Generic Name Dose Route Start Last Admin Trade Name Freq PRN Reason Stop Dose Admin Acetaminophen 650 mg 01/30/20 02:02 Tylenol TN Q4H PRN Fever >101 Acetaminophen 650 mg 02/03/20 23:39 02/10/20 20:31 Tylenol PO 650 mg Q4H PRN Administration Pain, Mild (1-3) Amlodipine Besylate 10 mg 01/30/20 10:00 02/11/20 09:20 Amlodipine PO 10 mg DAILY MATEUSZ Administration Aspirin 325 mg 01/30/20 10:00 02/11/20 09:15 Aspirin PO 325 mg QDAY MATEUSZ Administration Atorvastatin Calcium 40 mg 01/30/20 10:00 02/11/20 09:15 Lipitor PO 40 mg QDAY MATEUSZ Administration Dextrose 0 ml 01/30/20 02:05 D50w (25gm) Syringe IV Q30MIN PRN Hypoglycemia Protocol Fish Oil 2,000 mg 02/02/20 12:00 02/11/20 09:15 Fish Oil PO 2,000 mg BID MATEUSZ Administration Haloperidol Lactate 5 mg 02/05/20 12:56 02/09/20 09:39 Haldol IM 5 mg Q6H PRN Administration Agitation Hydralazine HCl 10 mg 01/31/20 22:21 02/10/20 21:28 Apresoline IV 10 mg Q6H PRN Administration Blood Pressure Insulin Human Regular 0 units 02/06/20 11:30 02/11/20 07:59 Humulin R SUB-Q Not Given ACHS [facility] Protocol Lisinopril 40 mg 01/30/20 10:00 02/11/20 09:20 Zestril PO 40 mg QDAY MATEUSZ Administration Melatonin 5 mg 02/02/20 11:47 02/10/20 21:00 Melatonin PO 5 mg QHS PRN Administration Sleep Naphazoline HCl/Pheniramine Maleate 2 drops 02/06/20 12:22 02/10/20 21:28 Visine-A OU 2 drops Q6H PRN Administration redness Ondansetron HCl 4 mg 01/30/20 02:02 02/03/20 21:06 Zofran IV 4 mg Q8H PRN Administration Nausea And Vomiting Zolpidem Tartrate 5 mg 01/31/20 22:21 02/08/20 22:06 Ambien PO 5 mg QHS PRN Administration Sleep Nutrition/Malnutrition Assess - Dietary Evaluation Nutrition/Malnutrition Findings: Nutrition Notes Start: 02/06/20 11:30 Freq: Status: Active Protocol: Document 02/06/20 11:30 LM (Rec: 02/06/20 11:31 LM [id number]) Nutrition Notes Need for Assessment generated from: LOS Initial or Follow up Brief Note Subjective/Other Information Screen for LOS. Pt with 75-100 % intakes in chart. Nutrition Intervention Revisit per MD consult or patient Sign Off request:
[2020-02-11] MEDS: hydrALAZINE 20 MG/1 ML INJ IV PRN ×2 (13:13→22:29)
[2020-02-11] MEDS: ZOLPIDEM 5 MG TAB PO PRN (22:29)
[2020-02-12] MEDS: INSULIN REGULAR, HUMAN 100 UNITS/1 ML SUB-Q SCH ×4 (07:53→23:37)
[2020-02-12] MEDS: ASPIRIN 325 MG TAB PO SCH (10:41)
[2020-02-12] MEDS: amLODIPine 10 MG TAB PO SCH (10:42)
[2020-02-12] MEDS: LISINOPRIL 40 MG TAB PO SCH (10:42)
[2020-02-12] MEDS: OMEGA-3 FATTY ACIDS/FISH OIL 1 GRAM CAP PO SCH ×2 (10:43→21:14)
--- NOTE | 2020-02-12 12:14 | Discharge Summary ---
Providers - Providers Date of Admission: 01/31/20 11:38 Date of discharge: 02/12/20 Attending physician: MALI JAVIER 01/30/20 06:00 Consult to Physician [CONS] Routine Comment: Consulting Provider: TOM AMAYA Physician Instructions: Reason For Exam: ATAXIA AND LACUNAR BRAIN INFARCT Physical Therapy Evaluation and Treat [CONS] Routine Comment: Reason For Exam: ATAXIA Speech Therapy Evaluation and Treat [CONS] Routine Reason For Exam: SPEECH IMPAIRMENT 02/01/20 14:55 Consult to Mental Health [CONS] Routine Reason For Exam: Depressed mood 02/04/20 14:17 Consult to Physician [CONS] Routine Comment: Consulting Provider: SHUBHAM MORA Physician Instructions: Reason For Exam: Covid-19 pos 02/06/20 10:58 Speech Therapy Evaluation and Treat [CONS] Stat Reason For Exam: packeting food and difficulty swallowing water [facility] Reason for admission: CVA Condition: Stable Hospital course: 54-year-old male past medical history of hypertension, diabetes admitted with acute Right basal ganglia lacunar infarct. The patient was seen by neurology, PT/OT. PT recommended rehab placement. Screening for admission at the rehab facility included COVID-19 testing where patient was found to be asymptomatically positive for COVID-19. Hospital course: 02/01/2020. Echocardiogram reveals mild concentric left ventricular hypertrophy with EF of 55 to 60%. Normal bubble study without evidence of intracardiac or intrapulmonary communication. Carotid Doppler negative. MRI reveals 2.2 cm acute infarct involving the left middle cerebellar peduncle and anterior left cerebellum. Also, multiple old basal ganglia lacunar infarcts and mild to moderate microvascular angiopathy. PT recommends KYE. Continue PT/OT. Await placement. 02/02/2020. Continue aspirin and Lipitor. PT/OT. Blood pressure control with lisinopril and Norvasc. Hydralazine PRN. Awaiting subacute rehab placement 02/03/2020 Patient with acute right basal ganglia infarct. patient needs acutee rehab placement. manager action says patient needs covid-19 test. Ordered. 02/04/20 Patient with acute ischemic stroke. Awaiting placement at acute rehab. Covid-19 test ordered ,awaiting. 02/05/20 Patient with acute ischemic stroke. He is medically stable to discharge to Subacute Rehab. awaiting placement. patient was agitated, Nurse says patient hit her, code jeff was called. Will start haldol prn, restraints, Psych following. Covid-19 positive 02/06/20 patient calm today. he is medically stable awaiting bed at SNF. Asymptomatic Covid-19 positive. 02/07/20 Patient with asymptomatic Covid-19 positive. He is awaiting SNF placement. 02/08/20 Patient with asymptomatic Covid-19 positive. No new complaints. He is awaiting SNF placement. 02/09/20 Patient is 54 yo presented with right sided weakness, diagnosed with acute stroke. Was to go to Rehab and Covid-19 test requested by Rehab, came back positive. he is asymptomatic. No cough, no fever, normal CXR. He is medically stable awaiting SNF placement. 02/10/2020. Case management working on bed placement. Patient otherwise stable. 02/11/2020. Patient is 54 yo presented with right sided weakness, diagnosed with acute stroke. Was to go to Rehab and Covid-19 test requested by Rehab, came back positive. he is asymptomatic. No cough, no fever, normal CXR. He is medically stable awaiting SNF placement. 02/12/2020 case management reports bed available today and thus patient will be discharged. Disposition: [id number] SNF [facility] Time spent for discharge: 35 - Discharge Diagnoses (1) Acute lacunar infarction Status: Acute (2) Cocaine use disorder, severe, dependence Status: Acute (3) Hypertensive urgency, malignant Status: Acute Core Measure Documentation - Palliative Care Palliative Care/ Comfort Measures: Not Applicable - Core Measures Any of the following diagnoses?: none Exam - Constitutional Vitals: Temp Pulse Resp BP Pulse Ox 97.9 F 76 18 165/88 95 02/12/20 05:58 02/12/20 10:42 02/12/20 05:58 02/12/20 10:42 02/12/20 05:58 General appearance: Present: no acute distress, well-nourished - EENT Eyes: Present: PERRL ENT: hearing intact, clear oral mucosa - Neck Neck: Present: supple, normal ROM - Respiratory Respiratory effort: normal Respiratory: bilateral: CTA - Cardiovascular Heart Sounds: Present: S1 & S2. Absent: rub, click - Extremities Extremities: pulses symmetrical, No edema Peripheral Pulses: within normal limits - Abdominal General gastrointestinal: Present: soft, non-tender, non-distended, normal bowel sounds Male genitourinary: Present: normal - Integumentary Integumentary: Present: clear, warm, dry - Musculoskeletal Musculoskeletal: gait normal, strength equal bilaterally - Psychiatric Psychiatric: appropriate mood/affect, intact judgment & insight - Neurologic Neurologic: CNII-XII intact, moves all extremities Plan Activity: advance as tolerated Weight Bearing Status: Weight Bear as Tolerated Diet: low fat, low cholesterol, low salt Follow up with: SUDHIR CLINTON MD [Primary Care Provider] - 7 Days
[2020-02-12] MEDS: ZOLPIDEM 5 MG TAB PO PRN (21:14)
[2020-02-12] MEDS: hydrALAZINE 20 MG/1 ML INJ IV PRN (21:22)
[2020-02-13] MEDS: HALOPERIDOL LACTATE 5 MG/1 ML INJ IM PRN ×2 (00:23→21:06)
[2020-02-13] MEDS: INSULIN REGULAR, HUMAN 100 UNITS/1 ML SUB-Q SCH ×4 (08:39→23:37)
[2020-02-13] MEDS: ASPIRIN 325 MG TAB PO SCH (10:23)
[2020-02-13] MEDS: OMEGA-3 FATTY ACIDS/FISH OIL 1 GRAM CAP PO SCH ×2 (10:23→21:06)
[2020-02-13] MEDS: amLODIPine 10 MG TAB PO SCH (10:24)
[2020-02-13] MEDS: LISINOPRIL 40 MG TAB PO SCH (10:25)
--- NOTE | 2020-02-13 13:31 | Progress Note ---
Assessment and Plan Assessment and plan: Right basal ganglia lacunar infarct. Continue aspirin and statin. Follow-up CTA of neck and echocardiogram. Follow-up TSH T4. PT/OT. PT recommends subacute rehab. Covid-19 infection Asymptomatic Hypertension. Continue antihypertensive medications. Diabetes mellitus type 2. Continue Accu-Cheks and sliding scale insulin. Disposition. Subacute rehab when bed available. 02/01/2020. Echocardiogram reveals mild concentric left ventricular hypertrophy with EF of 55 to 60%. Normal bubble study without evidence of intracardiac or intrapulmonary communication. Carotid Doppler negative. MRI reveals 2.2 cm acute infarct involving the left middle cerebellar peduncle and anterior left cerebellum. Also, multiple old basal ganglia lacunar infarcts and mild to moderate microvascular angiopathy. PT recommends [facility]. Continue PT/OT. Await placement. 02/02/2020. Continue aspirin and Lipitor. PT/OT. Blood pressure control with lisinopril and Norvasc. Hydralazine PRN. Awaiting subacute rehab placement 02/03/2020 Patient with acute right basal ganglia infarct. patient needs acutee rehab placement. marketing area manager says patient needs covid-19 test. Ordered. 02/04/20 Patient with acute ischemic stroke. Awaiting placement at acute rehab. Covid-19 test ordered ,awaiting. 02/05/20 Patient with acute ischemic stroke. He is medically stable to discharge to Subacute Rehab. awaiting placement. patient was agitated, Nurse says patient hit her, code aguilar was called. Will start haldol prn, restraints, Psych following. Covid-19 positive 02/06/20 patient calm today. he is medically stable awaiting bed at SNF. Asymptomatic Covid-19 positive. 02/07/20 Patient with asymptomatic Covid-19 positive. He is awaiting SNF placement. 02/08/20 Patient with asymptomatic Covid-19 positive. No new complaints. He is awaiting SNF placement. 02/09/20 Patient is 54 yo presented with right sided weakness, diagnosed with acute stroke. Was to go to Rehab and Covid-19 test requested by Rehab, came back positive. he is asymptomatic. No cough, no fever, normal CXR. He is medically stable awaiting SNF placement. 02/10/2020. Case management working on bed placement. Patient otherwise stable. 02/11/2020. Patient is 54 yo presented with right sided weakness, diagnosed with acute stroke. Was to go to Rehab and Covid-19 test requested by Rehab, came back positive. he is asymptomatic. No cough, no fever, normal CXR. He is medically stable awaiting SNF placement. 02/12/2020. Patient is 54 yo presented with right sided weakness, diagnosed with acute stroke. Was to go to Rehab and Covid-19 test requested by Rehab, came back positive. he is asymptomatic. No cough, no fever, normal CXR. He is medically stable awaiting SNF placement. 02/13/20. Patient awaiting bed availability. - Patient Problems (1) Acute lacunar infarction Current Visit: Yes Status: Acute (2) Cocaine use disorder, severe, dependence Current Visit: Yes Status: Acute (3) Hypertensive urgency, malignant Current Visit: Yes Status: Acute History Interval history: No new issues Hospitalist Physical - Constitutional Vitals: Temp Pulse Resp BP Pulse Ox 99.0 F 83 20 166/98 96 02/12/20 21:16 02/13/20 10:25 02/12/20 21:16 02/13/20 10:25 02/12/20 21:16 General appearance: Present: no acute distress, well-nourished - EENT Eyes: Present: PERRL, EOM intact ENT: hearing intact, clear oral mucosa, dentition normal - Neck Neck: Present: supple, normal ROM - Respiratory Respiratory effort: normal Respiratory: bilateral: CTA - Cardiovascular Rhythm: regular Heart Sounds: Present: S1 & S2. Absent: gallop, rub - Extremities Extremities: no ischemia, No edema, Full ROM - Abdominal General gastrointestinal: soft, non-tender, non-distended, normal bowel sounds - Integumentary Integumentary: Present: clear, warm, dry - Neurologic Neurologic: CNII-XII intact, moves all extremities HEART Score - HEART Score Troponin: Troponin T < 0.010 ng/mL (0.00-0.029) 01/29/20 23:06 Results - Labs CBC & Chem 7: 02/06/20 05:09 02/06/20 16:02 Labs: Laboratory Last Values WBC 8.7 K/mm3 (4.5-11.0) 02/06/20 05:09 RBC 5.17 M/mm3 (3.65-5.03) H 02/06/20 05:09 Hgb 14.9 gm/dl (11.8-15.2) 02/06/20 05:09 Hct 43.0 % (35.5-45.6) 02/06/20 05:09 MCV 83 fl (84-94) L 02/06/20 05:09 MCH 29 pg (28-32) 02/06/20 05:09 MCHC 35 % (32-34) H 02/06/20 05:09 RDW 15.1 % (13.2-15.2) 02/06/20 05:09 Plt Count 354 K/mm3 (140-440) 02/06/20 05:09 Lymph % (Auto) 39.7 % (13.4-35.0) H 01/29/20 23:06 Kerr % (Auto) 14.7 % (0.0-7.3) H 01/29/20 23:06 Eos % (Auto) 2.1 % (0.0-4.3) 01/29/20 23:06 Baso % (Auto) 1.1 % (0.0-1.8) 01/29/20 23:06 Lymph # 2.8 K/mm3 (1.2-5.4) 01/29/20 23:06 Kerr # 1.0 K/mm3 (0.0-0.8) H 01/29/20 23:06 Eos # 0.1 K/mm3 (0.0-0.4) 01/29/20 23:06 Baso # 0.1 K/mm3 (0.0-0.1) 01/29/20 23:06 Seg Neutrophils % 42.4 % (40.0-70.0) 01/29/20 23:06 Seg Neutrophils # 3.0 K/mm3 (1.8-7.7) 01/29/20 23:06 PT 14.0 Sec. (12.2-14.9) 01/29/20 23:06 INR 1.07 (0.87-1.13) 01/29/20 23:06 APTT 27.5 Sec. (24.2-36.6) 01/29/20 23:06 Thrombin Time 15.8 Sec. (15.1-19.6) 01/29/20 23:06 D-Dimer 173.65 ng/mlDDU (0-234) 02/08/20 13:28 Sodium 140 mmol/L (137-145) 02/06/20 05:09 Potassium 3.6 mmol/L (3.6-5.0) 02/06/20 16:02 Chloride 104.7 mmol/L (98-107) 02/06/20 05:09 Carbon Dioxide 21 mmol/L (22-30) L 02/06/20 05:09 Anion Gap 18 mmol/L 02/06/20 05:09 BUN 16 mg/dL (9-20) 02/06/20 05:09 Creatinine 0.9 mg/dL (0.8-1.5) 02/06/20 05:09 Estimated GFR > 60 ml/min 02/06/20 05:09 BUN/Creatinine Ratio 18 % 02/06/20 05:09 Glucose 135 mg/dL (75-100) H 02/06/20 05:09 POC Glucose 217 (70-105) H 02/12/20 11:50 Calcium 9.6 mg/dL (8.4-10.2) 02/06/20 05:09 Magnesium 2.30 mg/dL (1.7-2.3) 02/06/20 16:02 Ferritin 265.5 ng/mL (13.0-400.0) 02/08/20 13:28 Lactate Dehydrogenase 252 units/L (91-180) H 02/08/20 13:28 Troponin T < 0.010 ng/mL (0.00-0.029) 01/29/20 23:06 C-Reactive Protein < 0.03 mg/dL (0.00-1.30) 02/08/20 13:28 Triglycerides 293 mg/dL (2-149) H 01/30/20 13:26 Cholesterol 162 mg/dL (50-199) 01/30/20 13:26 LDL Cholesterol Direct 105 mg/dL (50-130) 01/30/20 13:26 HDL Cholesterol 31 mg/dL (40-59) L 01/30/20 13:26 Cholesterol/HDL Ratio 5.22 % 01/30/20 13:26 Procalcitonin < 0.05 ng/mL (<0.15) 02/04/20 14:59 Nasal Screen MRSA (PCR) Negative (Negative) 01/30/20 04:50 Urine Opiates Screen Presumptive negative 02/02/20 Unknown Urine Methadone Screen Presumptive negative 02/02/20 Unknown Ur Barbiturates Screen Presumptive negative 02/02/20 Unknown Ur Phencyclidine Scrn Presumptive negative 02/02/20 Unknown Ur Amphetamines Screen Presumptive positive 02/02/20 Unknown U Benzodiazepines Scrn Presumptive negative 02/02/20 Unknown Urine Cocaine Screen Presumptive negative 02/02/20 Unknown U Marijuana (THC) Screen Presumptive negative 02/02/20 Unknown Drugs of Abuse Note Disclamer 02/02/20 Unknown Coronavirus (PCR) Positive (Negative) A 02/03/20 08:32 - Diagnostic Impressions Diagnostic Impressions: Echocardiogram 01/30/20 06:00 Transthoracic Echocardiogram Indication: Brain infarct BP: 185/94 HR: 72 Conclusions *Mild concentric left ventricular hypertrophy is observed. *Global left ventricular systolic function is normal. *The estimated ejection fraction is 55-60%. *Abnormal left ventricular diastolic filling is observed, consistent with impaired relaxation. *There is mild aortic regurgitation. *There is no pericardial effusion. *Normal bubble study without evidence of intracardiac or intrapulmonary communication Findings Left Ventricle: The left ventricular chamber size is normal. Mild concentric left ventricular hypertrophy is observed. Global left ventricular systolic function is normal. The estimated ejection fraction is 55-60%. Abnormal left ventricular diastolic filling is observed, consistent with impaired relaxation. Left Atrium: The left atrial chamber size is normal. Right Ventricle: The right ventricular cavity size is normal. The right ventricular global systolic function is normal. Right Atrium: The right atrial cavity size is normal. No atrial septal defected is demonstrated by agitated saline contrast. Aortic Valve: The aortic valve is trileaflet. There is mild aortic regurgitation. Mitral Valve: The mitral valve leaflets are mildly thickened. There is trace of mitral regurgitation. Tricuspid Valve: The tricuspid valve leaflets are normal. There is trace tricuspid regurgitation. The right ventricular systolic pressure is calculated at 21 mmHg. Pulmonic Valve: The pulmonic valve appears normal. There is no evidence of pulmonic regurgitation. Pericardium: There is no pericardial effusion. There is a minimial pericardial effusion. Aorta: There is no dilatation of the ascending aorta. There is no dilatation of the aortic root. Venous: The inferior vena cava appears normal in size. There is a greater than 50% respiratory change in the inferior vena cava dimension. Measurements Chambers 2D Name Value Normal Range IVSd (2D) 1.26 cm (0.6 - 1.1) LVPWd (2D) 1.28 cm (0.6 - 1.1) LVIDd (2D) 4.16 cm (3.7 - 5.6) LVIDs (2D) 2.61 cm (2 - 3.8) LV FS (2D) 37.36 % - EF Teichholz (2D) 67.78 % - Ao root diameter (2D) 3.66 cm (2 - 3.7) Volumes/Mass Name Value Normal Range LA ESV SP 4CH (A/L) 47.43 ml - LA ESV SP 2CH (A/L) 49.43 ml - LA ESV BP (A/L) 50.34 ml - LA ESV BP (A/L) index 25.42 ml/m2 - LA ESV SP 4CH (MOD) 43.41 ml - LA ESV SP 2CH (MOD) 46.74 ml - LA ESV BP (MOD) 46.78 ml - LA ESV BP (MOD) index 23.63 ml/m2 - Diastolic/Systolic Function Name Value Normal Range MV E-wave Vmax 0.7 m/sec - MV deceleration time 237.63 msec - MV A-wave Vmax 0.85 m/sec - MV E:A ratio 0.82 ratio - Aortic Valve Name Value Normal Range AV Vmax 1.4 m/sec - AV VTI 24.22 cm - AV peak gradient 7.8 mmHg - AV mean gradient 4.66 mmHg - LVOT diameter 2.1 cm - LVOT Vmax 1.24 m/sec - LVOT VTI 28.19 cm - LVOT peak gradient 6.15 mmHg - LVOT mean gradient 3.55 mmHg - SV LVOT 97.55 ml - KETURAH (continuity Vmax) 3.07 cm2 - KETURAH (continuity VTI) 4.03 cm2 - AR PHT 535.67 msec - AR peak gradient 64.79 mmHg - Tricuspid Valve Name Value Normal Range TR Vmax 2.13 m/sec - TR peak gradient 18 mmHg - RAP 3 mmHg - RVSP 21 mmHg - IVC diameter 1.81 cm (1.2 - 2.3) Pulmonic Valve/Qp:Qs Name Value Normal Range PV Vmax 1.06 m/sec - PV peak gradient 4.47 mmHg - PV acceleration time 133.21 msec - Akhtar/IV: Voiding Method Toilet IV Catheter Type [Right Upper INT / Saline Lock arm] IV Catheter Type [Right Peripheral IV Forearm] IV Catheter Type [Left Forearm INT / Saline Lock ] IV Catheter Type [Right Hand] INT / Saline Lock IV Catheter Type [Left INT / Saline Lock Antecubital] Active Medications - Current Medications Current Medications: Generic Name Dose Route Start Last Admin Trade Name Freq PRN Reason Stop Dose Admin Acetaminophen 650 mg 01/30/20 02:02 Tylenol CA Q4H PRN Fever >101 Acetaminophen 650 mg 02/03/20 23:39 02/10/20 20:31 Tylenol PO 650 mg Q4H PRN Administration Pain, Mild (1-3) Amlodipine Besylate 10 mg 01/30/20 10:00 02/13/20 10:24 Amlodipine PO 10 mg DAILY MATEUSZ Administration Aspirin 325 mg 01/30/20 10:00 02/13/20 10:23 Aspirin PO 325 mg QDAY MATEUSZ Administration Atorvastatin Calcium 40 mg 01/30/20 10:00 02/13/20 10:23 Lipitor PO 40 mg QDAY MATEUSZ Administration Dextrose 0 ml 01/30/20 02:05 D50w (25gm) Syringe IV Q30MIN PRN Hypoglycemia Protocol Fish Oil 2,000 mg 02/02/20 12:00 02/13/20 10:23 Fish Oil PO 2,000 mg BID MATEUSZ Administration Haloperidol Lactate 5 mg 02/05/20 12:56 02/13/20 00:23 Haldol IM 5 mg Q6H PRN Administration Agitation Hydralazine HCl 10 mg 01/31/20 22:21 02/12/20 21:22 Apresoline IV 10 mg Q6H PRN Administration Blood Pressure Insulin Human Regular 0 units 02/06/20 11:30 02/13/20 11:46 Humulin R SUB-Q 1 units ACHS MATEUSZ Administration Protocol Lisinopril 40 mg 01/30/20 10:00 02/13/20 10:25 Zestril PO 40 mg QDAY MATEUSZ Administration Melatonin 5 mg 02/02/20 11:47 02/10/20 21:00 Melatonin PO 5 mg QHS PRN Administration Sleep Naphazoline HCl/Pheniramine Maleate 2 drops 02/06/20 12:22 02/10/20 21:28 Visine-A OU 2 drops Q6H PRN Administration redness Ondansetron HCl 4 mg 01/30/20 02:02 02/03/20 21:06 Zofran IV 4 mg Q8H PRN Administration Nausea And Vomiting Zolpidem Tartrate 5 mg 01/31/20 22:21 02/12/20 21:14 Ambien PO 5 mg QHS PRN Administration Sleep Nutrition/Malnutrition Assess - Dietary Evaluation Nutrition/Malnutrition Findings: Nutrition Notes Start: 02/06/20 11:30 Freq: Status: Active Protocol: Document 02/06/20 11:30 LM (Rec: 02/06/20 11:31 LM [id number]) Nutrition Notes Need for Assessment generated from: LOS Initial or Follow up Brief Note Subjective/Other Information Screen for LOS. Pt with 75-100 % intakes in chart. Nutrition Intervention Revisit per MD consult or patient Sign Off request:
[2020-02-14] MEDS: INSULIN REGULAR, HUMAN 100 UNITS/1 ML SUB-Q SCH ×4 (07:30→21:58)
[2020-02-14] MEDS: ASPIRIN 325 MG TAB PO SCH (09:02)
[2020-02-14] MEDS: amLODIPine 10 MG TAB PO SCH (09:02)
[2020-02-14] MEDS: LISINOPRIL 40 MG TAB PO SCH (09:03)
[2020-02-14] MEDS: OMEGA-3 FATTY ACIDS/FISH OIL 1 GRAM CAP PO SCH ×2 (09:03→21:58)
--- NOTE | 2020-02-14 11:48 | Progress Note ---
Assessment and Plan Assessment and plan: Right basal ganglia lacunar infarct. Continue aspirin and statin. Follow-up CTA of neck and echocardiogram. Follow-up TSH T4. PT/OT. PT recommends subacute rehab. Covid-19 infection Asymptomatic Hypertension. Continue antihypertensive medications. Diabetes mellitus type 2. Continue Accu-Cheks and sliding scale insulin. Disposition. Subacute rehab when bed available. 02/01/2020. Echocardiogram reveals mild concentric left ventricular hypertrophy with EF of 55 to 60%. Normal bubble study without evidence of intracardiac or intrapulmonary communication. Carotid Doppler negative. MRI reveals 2.2 cm acute infarct involving the left middle cerebellar peduncle and anterior left cerebellum. Also, multiple old basal ganglia lacunar infarcts and mild to moderate microvascular angiopathy. PT recommends [facility]. Continue PT/OT. Await placement. 02/02/2020. Continue aspirin and Lipitor. PT/OT. Blood pressure control with lisinopril and Norvasc. Hydralazine PRN. Awaiting subacute rehab placement 02/03/2020 Patient with acute right basal ganglia infarct. patient needs acutee rehab placement. underwriting manager says patient needs covid-19 test. Ordered. 02/04/20 Patient with acute ischemic stroke. Awaiting placement at acute rehab. Covid-19 test ordered ,awaiting. 02/05/20 Patient with acute ischemic stroke. He is medically stable to discharge to Subacute Rehab. awaiting placement. patient was agitated, Nurse says patient hit her, code aguilar was called. Will start haldol prn, restraints, Psych following. Covid-19 positive 02/06/20 patient calm today. he is medically stable awaiting bed at SNF. Asymptomatic Covid-19 positive. 02/07/20 Patient with asymptomatic Covid-19 positive. He is awaiting SNF placement. 02/08/20 Patient with asymptomatic Covid-19 positive. No new complaints. He is awaiting SNF placement. 02/09/20 Patient is 54 yo presented with right sided weakness, diagnosed with acute stroke. Was to go to Rehab and Covid-19 test requested by Rehab, came back positive. he is asymptomatic. No cough, no fever, normal CXR. He is medically stable awaiting SNF placement. 02/10/2020. Case management working on bed placement. Patient otherwise stable. 02/11/2020. Patient is 54 yo presented with right sided weakness, diagnosed with acute stroke. Was to go to Rehab and Covid-19 test requested by Rehab, came back positive. he is asymptomatic. No cough, no fever, normal CXR. He is medically stable awaiting SNF placement. 02/12/2020. Patient is 54 yo presented with right sided weakness, diagnosed with acute stroke. Was to go to Rehab and Covid-19 test requested by Rehab, came back positive. he is asymptomatic. No cough, no fever, normal CXR. He is medically stable awaiting SNF placement. 02/13/20. Patient awaiting bed availability. 02/14/20. Patient is 54 yo presented with right sided weakness, diagnosed with acute stroke. Was to go to Rehab and Covid-19 test requested by Rehab, came back positive. he is asymptomatic. No cough, no fever, normal CXR. He is medically stable awaiting SNF placement. - Patient Problems (1) Acute lacunar infarction Current Visit: Yes Status: Acute (2) Cocaine use disorder, severe, dependence Current Visit: Yes Status: Acute (3) Hypertensive urgency, malignant Current Visit: Yes Status: Acute History Interval history: No new issues Hospitalist Physical - Constitutional Vitals: Temp Pulse Resp BP Pulse Ox 99.8 F H 62 18 140/78 93 02/13/20 23:02 02/14/20 09:02 02/13/20 23:02 02/14/20 09:02 02/13/20 23:02 General appearance: Present: no acute distress, well-nourished - EENT Eyes: Present: PERRL, EOM intact ENT: hearing intact, clear oral mucosa, dentition normal - Neck Neck: Present: supple, normal ROM - Respiratory Respiratory effort: normal Respiratory: bilateral: CTA - Cardiovascular Rhythm: regular Heart Sounds: Present: S1 & S2. Absent: gallop, rub - Extremities Extremities: no ischemia, No edema, Full ROM - Abdominal General gastrointestinal: soft, non-tender, non-distended, normal bowel sounds - Integumentary Integumentary: Present: clear, warm, dry - Neurologic Neurologic: CNII-XII intact, moves all extremities HEART Score - HEART Score Troponin: Troponin T < 0.010 ng/mL (0.00-0.029) 01/29/20 23:06 Results - Labs CBC & Chem 7: 02/06/20 05:09 02/06/20 16:02 Labs: Laboratory Last Values WBC 8.7 K/mm3 (4.5-11.0) 02/06/20 05:09 RBC 5.17 M/mm3 (3.65-5.03) H 02/06/20 05:09 Hgb 14.9 gm/dl (11.8-15.2) 02/06/20 05:09 Hct 43.0 % (35.5-45.6) 02/06/20 05:09 MCV 83 fl (84-94) L 02/06/20 05:09 MCH 29 pg (28-32) 02/06/20 05:09 MCHC 35 % (32-34) H 02/06/20 05:09 RDW 15.1 % (13.2-15.2) 02/06/20 05:09 Plt Count 354 K/mm3 (140-440) 02/06/20 05:09 Lymph % (Auto) 39.7 % (13.4-35.0) H 01/29/20 23:06 [place] % (Auto) 14.7 % (0.0-7.3) H 01/29/20 23:06 Eos % (Auto) 2.1 % (0.0-4.3) 01/29/20 23:06 Baso % (Auto) 1.1 % (0.0-1.8) 01/29/20 23:06 Lymph # 2.8 K/mm3 (1.2-5.4) 01/29/20 23:06 [place] # 1.0 K/mm3 (0.0-0.8) H 01/29/20 23:06 Eos # 0.1 K/mm3 (0.0-0.4) 01/29/20 23:06 Baso # 0.1 K/mm3 (0.0-0.1) 01/29/20 23:06 Seg Neutrophils % 42.4 % (40.0-70.0) 01/29/20 23:06 Seg Neutrophils # 3.0 K/mm3 (1.8-7.7) 01/29/20 23:06 PT 14.0 Sec. (12.2-14.9) 01/29/20 23:06 INR 1.07 (0.87-1.13) 01/29/20 23:06 APTT 27.5 Sec. (24.2-36.6) 01/29/20 23:06 Thrombin Time 15.8 Sec. (15.1-19.6) 01/29/20 23:06 D-Dimer 173.65 ng/mlDDU (0-234) 02/08/20 13:28 Sodium 140 mmol/L (137-145) 02/06/20 05:09 Potassium 3.6 mmol/L (3.6-5.0) 02/06/20 16:02 Chloride 104.7 mmol/L (98-107) 02/06/20 05:09 Carbon Dioxide 21 mmol/L (22-30) L 02/06/20 05:09 Anion Gap 18 mmol/L 02/06/20 05:09 BUN 16 mg/dL (9-20) 02/06/20 05:09 Creatinine 0.9 mg/dL (0.8-1.5) 02/06/20 05:09 Estimated GFR > 60 ml/min 02/06/20 05:09 BUN/Creatinine Ratio 18 % 02/06/20 05:09 Glucose 135 mg/dL (75-100) H 02/06/20 05:09 POC Glucose 217 (70-105) H 02/12/20 11:50 Calcium 9.6 mg/dL (8.4-10.2) 02/06/20 05:09 Magnesium 2.30 mg/dL (1.7-2.3) 02/06/20 16:02 Ferritin 265.5 ng/mL (13.0-400.0) 02/08/20 13:28 Lactate Dehydrogenase 252 units/L (91-180) H 02/08/20 13:28 Troponin T < 0.010 ng/mL (0.00-0.029) 01/29/20 23:06 C-Reactive Protein < 0.03 mg/dL (0.00-1.30) 02/08/20 13:28 Triglycerides 293 mg/dL (2-149) H 01/30/20 13:26 Cholesterol 162 mg/dL (50-199) 01/30/20 13:26 LDL Cholesterol Direct 105 mg/dL (50-130) 01/30/20 13:26 HDL Cholesterol 31 mg/dL (40-59) L 01/30/20 13:26 Cholesterol/HDL Ratio 5.22 % 01/30/20 13:26 Procalcitonin < 0.05 ng/mL (<0.15) 02/04/20 14:59 Nasal Screen MRSA (PCR) Negative (Negative) 01/30/20 04:50 Urine Opiates Screen Presumptive negative 02/02/20 Unknown Urine Methadone Screen Presumptive negative 02/02/20 Unknown Ur Barbiturates Screen Presumptive negative 02/02/20 Unknown Ur Phencyclidine Scrn Presumptive negative 02/02/20 Unknown Ur Amphetamines Screen Presumptive positive 02/02/20 Unknown U Benzodiazepines Scrn Presumptive negative 02/02/20 Unknown Urine Cocaine Screen Presumptive negative 02/02/20 Unknown U Marijuana (THC) Screen Presumptive negative 02/02/20 Unknown Drugs of Abuse Note Disclamer 02/02/20 Unknown Coronavirus (PCR) Positive (Negative) A 02/03/20 08:32 - Diagnostic Impressions Diagnostic Impressions: Echocardiogram 01/30/20 06:00 Transthoracic Echocardiogram Indication: Brain infarct BP: 185/94 HR: 72 Conclusions *Mild concentric left ventricular hypertrophy is observed. *Global left ventricular systolic function is normal. *The estimated ejection fraction is 55-60%. *Abnormal left ventricular diastolic filling is observed, consistent with impaired relaxation. *There is mild aortic regurgitation. *There is no pericardial effusion. *Normal bubble study without evidence of intracardiac or intrapulmonary communication Findings Left Ventricle: The left ventricular chamber size is normal. Mild concentric left ventricular hypertrophy is observed. Global left ventricular systolic function is normal. The estimated ejection fraction is 55-60%. Abnormal left ventricular diastolic filling is observed, consistent with impaired relaxation. Left Atrium: The left atrial chamber size is normal. Right Ventricle: The right ventricular cavity size is normal. The right ventricular global systolic function is normal. Right Atrium: The right atrial cavity size is normal. No atrial septal defected is demonstrated by agitated saline contrast. Aortic Valve: The aortic valve is trileaflet. There is mild aortic regurgitation. Mitral Valve: The mitral valve leaflets are mildly thickened. There is trace of mitral regurgitation. Tricuspid Valve: The tricuspid valve leaflets are normal. There is trace tricuspid regurgitation. The right ventricular systolic pressure is calculated at 21 mmHg. Pulmonic Valve: The pulmonic valve appears normal. There is no evidence of pulmonic regurgitation. Pericardium: There is no pericardial effusion. There is a minimial pericardial effusion. Aorta: There is no dilatation of the ascending aorta. There is no dilatation of the aortic root. Venous: The inferior vena cava appears normal in size. There is a greater than 50% respiratory change in the inferior vena cava dimension. Measurements Chambers 2D Name Value Normal Range IVSd (2D) 1.26 cm (0.6 - 1.1) LVPWd (2D) 1.28 cm (0.6 - 1.1) LVIDd (2D) 4.16 cm (3.7 - 5.6) LVIDs (2D) 2.61 cm (2 - 3.8) LV FS (2D) 37.36 % - EF Teichholz (2D) 67.78 % - Ao root diameter (2D) 3.66 cm (2 - 3.7) Volumes/Mass Name Value Normal Range LA ESV SP 4CH (A/L) 47.43 ml - LA ESV SP 2CH (A/L) 49.43 ml - LA ESV BP (A/L) 50.34 ml - LA ESV BP (A/L) index 25.42 ml/m2 - LA ESV SP 4CH (MOD) 43.41 ml - LA ESV SP 2CH (MOD) 46.74 ml - LA ESV BP (MOD) 46.78 ml - LA ESV BP (MOD) index 23.63 ml/m2 - Diastolic/Systolic Function Name Value Normal Range MV E-wave Vmax 0.7 m/sec - MV deceleration time 237.63 msec - MV A-wave Vmax 0.85 m/sec - MV E:A ratio 0.82 ratio - Aortic Valve Name Value Normal Range AV Vmax 1.4 m/sec - AV VTI 24.22 cm - AV peak gradient 7.8 mmHg - AV mean gradient 4.66 mmHg - LVOT diameter 2.1 cm - LVOT Vmax 1.24 m/sec - LVOT VTI 28.19 cm - LVOT peak gradient 6.15 mmHg - LVOT mean gradient 3.55 mmHg - SV LVOT 97.55 ml - KETURAH (continuity Vmax) 3.07 cm2 - KETURAH (continuity VTI) 4.03 cm2 - AR PHT 535.67 msec - AR peak gradient 64.79 mmHg - Tricuspid Valve Name Value Normal Range TR Vmax 2.13 m/sec - TR peak gradient 18 mmHg - RAP 3 mmHg - RVSP 21 mmHg - IVC diameter 1.81 cm (1.2 - 2.3) Pulmonic Valve/Qp:Qs Name Value Normal Range PV Vmax 1.06 m/sec - PV peak gradient 4.47 mmHg - PV acceleration time 133.21 msec - Akhtar/IV: Voiding Method Urinal IV Catheter Type [Right Upper INT / Saline Lock arm] IV Catheter Type [Right INT / Saline Lock Forearm] IV Catheter Type [Left Forearm INT / Saline Lock ] IV Catheter Type [Right Hand] INT / Saline Lock IV Catheter Type [Left INT / Saline Lock Antecubital] Active Medications - Current Medications Current Medications: Generic Name Dose Route Start Last Admin Trade Name Freq PRN Reason Stop Dose Admin Acetaminophen 650 mg 01/30/20 02:02 Tylenol SD Q4H PRN Fever >101 Acetaminophen 650 mg 02/03/20 23:39 02/10/20 20:31 Tylenol PO 650 mg Q4H PRN Administration Pain, Mild (1-3) Amlodipine Besylate 10 mg 01/30/20 10:00 02/14/20 09:02 Amlodipine PO 10 mg DAILY MATEUSZ Administration Aspirin 325 mg 01/30/20 10:00 02/14/20 09:02 Aspirin PO 325 mg QDAY MATEUSZ Administration Atorvastatin Calcium 40 mg 01/30/20 10:00 02/14/20 09:03 Lipitor PO 40 mg QDAY MATEUSZ Administration Dextrose 0 ml 01/30/20 02:05 D50w (25gm) Syringe IV Q30MIN PRN Hypoglycemia Protocol Fish Oil 2,000 mg 02/02/20 12:00 02/14/20 09:03 Fish Oil PO 2,000 mg BID MATEUSZ Administration Haloperidol Lactate 5 mg 02/05/20 12:56 02/13/20 21:06 Haldol IM 5 mg Q6H PRN Administration Agitation Hydralazine HCl 10 mg 01/31/20 22:21 02/12/20 21:22 Apresoline IV 10 mg Q6H PRN Administration Blood Pressure Insulin Human Regular 0 units 02/06/20 11:30 02/14/20 07:30 Humulin R SUB-Q Not Given ACHS MATEUSZ Protocol Lisinopril 40 mg 01/30/20 10:00 02/14/20 09:03 Zestril PO 40 mg QDAY MATEUSZ Administration Melatonin 5 mg 02/02/20 11:47 02/10/20 21:00 Melatonin PO 5 mg QHS PRN Administration Sleep Naphazoline HCl/Pheniramine Maleate 2 drops 02/06/20 12:22 02/10/20 21:28 Visine-A OU 2 drops Q6H PRN Administration redness Ondansetron HCl 4 mg 01/30/20 02:02 02/03/20 21:06 Zofran IV 4 mg Q8H PRN Administration Nausea And Vomiting Zolpidem Tartrate 5 mg 01/31/20 22:21 02/12/20 21:14 Ambien PO 5 mg QHS PRN Administration Sleep Nutrition/Malnutrition Assess - Dietary Evaluation Nutrition/Malnutrition Findings: Nutrition Notes Start: 02/06/20 11:30 Freq: Status: Active Protocol: Document 02/06/20 11:30 LM (Rec: 02/06/20 11:31 LM [email or web address]) Nutrition Notes Need for Assessment generated from: LOS Initial or Follow up Brief Note Subjective/Other Information Screen for LOS. Pt with 75-100 % intakes in chart. Nutrition Intervention Revisit per MD consult or patient Sign Off request:
[2020-02-14] MEDS: HALOPERIDOL LACTATE 5 MG/1 ML INJ IM PRN (17:35)
[2020-02-15] MEDS: INSULIN REGULAR, HUMAN 100 UNITS/1 ML SUB-Q SCH ×3 (09:03→21:47)
[2020-02-15] MEDS: OMEGA-3 FATTY ACIDS/FISH OIL 1 GRAM CAP PO SCH ×2 (09:06→21:49)
[2020-02-15] MEDS: ASPIRIN 325 MG TAB PO SCH (09:06)
[2020-02-15] MEDS: amLODIPine 10 MG TAB PO SCH (09:23)
[2020-02-15] MEDS: LISINOPRIL 40 MG TAB PO SCH (09:26)
--- NOTE | 2020-02-15 09:34 | Progress Note ---
Assessment and Plan Assessment and plan: Right basal ganglia lacunar infarct. Continue aspirin and statin. Follow-up CTA of neck and echocardiogram. Follow-up TSH T4. PT/OT. PT recommends subacute rehab. Covid-19 infection Asymptomatic Hypertension. Continue antihypertensive medications. Diabetes mellitus type 2. Continue Accu-Cheks and sliding scale insulin. Disposition. Subacute rehab when bed available. 02/01/2020. Echocardiogram reveals mild concentric left ventricular hypertrophy with EF of 55 to 60%. Normal bubble study without evidence of intracardiac or intrapulmonary communication. Carotid Doppler negative. MRI reveals 2.2 cm acute infarct involving the left middle cerebellar peduncle and anterior left cerebellum. Also, multiple old basal ganglia lacunar infarcts and mild to moderate microvascular angiopathy. PT recommends [facility]. Continue PT/OT. Await placement. 02/02/2020. Continue aspirin and Lipitor. PT/OT. Blood pressure control with lisinopril and Norvasc. Hydralazine PRN. Awaiting subacute rehab placement 02/03/2020 Patient with acute right basal ganglia infarct. patient needs acutee rehab placement. portfolio manager says patient needs covid-19 test. Ordered. 02/04/20 Patient with acute ischemic stroke. Awaiting placement at acute rehab. Covid-19 test ordered ,awaiting. 02/05/20 Patient with acute ischemic stroke. He is medically stable to discharge to Subacute Rehab. awaiting placement. patient was agitated, Nurse says patient hit her, code aguilar was called. Will start haldol prn, restraints, Psych following. Covid-19 positive 02/06/20 patient calm today. he is medically stable awaiting bed at SNF. Asymptomatic Covid-19 positive. 02/07/20 Patient with asymptomatic Covid-19 positive. He is awaiting SNF placement. 02/08/20 Patient with asymptomatic Covid-19 positive. No new complaints. He is awaiting SNF placement. 02/09/20 Patient is 54 yo presented with right sided weakness, diagnosed with acute stroke. Was to go to Rehab and Covid-19 test requested by Rehab, came back positive. he is asymptomatic. No cough, no fever, normal CXR. He is medically stable awaiting SNF placement. 02/10/2020. Case management working on bed placement. Patient otherwise stable. 02/11/2020. Patient is 54 yo presented with right sided weakness, diagnosed with acute stroke. Was to go to Rehab and Covid-19 test requested by Rehab, came back positive. he is asymptomatic. No cough, no fever, normal CXR. He is medically stable awaiting SNF placement. 02/12/2020. Patient is 54 yo presented with right sided weakness, diagnosed with acute stroke. Was to go to Rehab and Covid-19 test requested by Rehab, came back positive. he is asymptomatic. No cough, no fever, normal CXR. He is medically stable awaiting SNF placement. 02/13/20. Patient awaiting bed availability. 02/14/20. Patient is 54 yo presented with right sided weakness, diagnosed with acute stroke. Was to go to Rehab and Covid-19 test requested by Rehab, came back positive. he is asymptomatic. No cough, no fever, normal CXR. He is medically stable awaiting SNF placement. 02/15/2020. Patient is 54 yo presented with right sided weakness, diagnosed with acute stroke. Was to go to Rehab and Covid-19 test requested by Rehab, came back positive. he is asymptomatic. No cough, no fever, normal CXR. He is medically stable awaiting SNF placement. I updated the sister with plan of care. - Patient Problems (1) Acute lacunar infarction Current Visit: Yes Status: Acute (2) Cocaine use disorder, severe, dependence Current Visit: Yes Status: Acute (3) Hypertensive urgency, malignant Current Visit: Yes Status: Acute History Interval history: No new issues Hospitalist Physical - Constitutional Vitals: Temp Pulse Resp BP Pulse Ox 96.9 F L 58 L 18 155/88 95 02/15/20 06:04 02/15/20 09:26 02/15/20 06:04 02/15/20 09:26 02/15/20 06:04 General appearance: Present: no acute distress, well-nourished - EENT Eyes: Present: PERRL, EOM intact ENT: hearing intact, clear oral mucosa, dentition normal - Neck Neck: Present: supple, normal ROM - Respiratory Respiratory effort: normal Respiratory: bilateral: CTA - Cardiovascular Rhythm: regular Heart Sounds: Present: S1 & S2. Absent: gallop, rub - Extremities Extremities: no ischemia, No edema, Full ROM - Abdominal General gastrointestinal: soft, non-tender, non-distended, normal bowel sounds - Integumentary Integumentary: Present: clear, warm, dry - Neurologic Neurologic: CNII-XII intact, moves all extremities HEART Score - HEART Score Troponin: Troponin T < 0.010 ng/mL (0.00-0.029) 01/29/20 23:06 Results - Labs CBC & Chem 7: 02/06/20 05:09 02/06/20 16:02 Labs: Laboratory Last Values WBC 8.7 K/mm3 (4.5-11.0) 02/06/20 05:09 RBC 5.17 M/mm3 (3.65-5.03) H 02/06/20 05:09 Hgb 14.9 gm/dl (11.8-15.2) 02/06/20 05:09 Hct 43.0 % (35.5-45.6) 02/06/20 05:09 MCV 83 fl (84-94) L 02/06/20 05:09 MCH 29 pg (28-32) 02/06/20 05:09 MCHC 35 % (32-34) H 02/06/20 05:09 RDW 15.1 % (13.2-15.2) 02/06/20 05:09 Plt Count 354 K/mm3 (140-440) 02/06/20 05:09 Lymph % (Auto) 39.7 % (13.4-35.0) H 01/29/20 23:06 [place] % (Auto) 14.7 % (0.0-7.3) H 01/29/20 23:06 Eos % (Auto) 2.1 % (0.0-4.3) 01/29/20 23:06 Baso % (Auto) 1.1 % (0.0-1.8) 01/29/20 23:06 Lymph # 2.8 K/mm3 (1.2-5.4) 01/29/20 23:06 [place] # 1.0 K/mm3 (0.0-0.8) H 01/29/20 23:06 Eos # 0.1 K/mm3 (0.0-0.4) 01/29/20 23:06 Baso # 0.1 K/mm3 (0.0-0.1) 01/29/20 23:06 Seg Neutrophils % 42.4 % (40.0-70.0) 01/29/20 23:06 Seg Neutrophils # 3.0 K/mm3 (1.8-7.7) 01/29/20 23:06 PT 14.0 Sec. (12.2-14.9) 01/29/20 23:06 INR 1.07 (0.87-1.13) 01/29/20 23:06 APTT 27.5 Sec. (24.2-36.6) 01/29/20 23:06 Thrombin Time 15.8 Sec. (15.1-19.6) 01/29/20 23:06 D-Dimer 173.65 ng/mlDDU (0-234) 02/08/20 13:28 Sodium 140 mmol/L (137-145) 02/06/20 05:09 Potassium 3.6 mmol/L (3.6-5.0) 02/06/20 16:02 Chloride 104.7 mmol/L (98-107) 02/06/20 05:09 Carbon Dioxide 21 mmol/L (22-30) L 02/06/20 05:09 Anion Gap 18 mmol/L 02/06/20 05:09 BUN 16 mg/dL (9-20) 02/06/20 05:09 Creatinine 0.9 mg/dL (0.8-1.5) 02/06/20 05:09 Estimated GFR > 60 ml/min 02/06/20 05:09 BUN/Creatinine Ratio 18 % 02/06/20 05:09 Glucose 135 mg/dL (75-100) H 02/06/20 05:09 POC Glucose 217 (70-105) H 02/12/20 11:50 Calcium 9.6 mg/dL (8.4-10.2) 02/06/20 05:09 Magnesium 2.30 mg/dL (1.7-2.3) 02/06/20 16:02 Ferritin 265.5 ng/mL (13.0-400.0) 02/08/20 13:28 Lactate Dehydrogenase 252 units/L (91-180) H 02/08/20 13:28 Troponin T < 0.010 ng/mL (0.00-0.029) 01/29/20 23:06 C-Reactive Protein < 0.03 mg/dL (0.00-1.30) 02/08/20 13:28 Triglycerides 293 mg/dL (2-149) H 01/30/20 13:26 Cholesterol 162 mg/dL (50-199) 01/30/20 13:26 LDL Cholesterol Direct 105 mg/dL (50-130) 01/30/20 13:26 HDL Cholesterol 31 mg/dL (40-59) L 01/30/20 13:26 Cholesterol/HDL Ratio 5.22 % 01/30/20 13:26 Procalcitonin < 0.05 ng/mL (<0.15) 02/04/20 14:59 Nasal Screen MRSA (PCR) Negative (Negative) 01/30/20 04:50 Urine Opiates Screen Presumptive negative 02/02/20 Unknown Urine Methadone Screen Presumptive negative 02/02/20 Unknown Ur Barbiturates Screen Presumptive negative 02/02/20 Unknown Ur Phencyclidine Scrn Presumptive negative 02/02/20 Unknown Ur Amphetamines Screen Presumptive positive 02/02/20 Unknown U Benzodiazepines Scrn Presumptive negative 02/02/20 Unknown Urine Cocaine Screen Presumptive negative 02/02/20 Unknown U Marijuana (THC) Screen Presumptive negative 02/02/20 Unknown Drugs of Abuse Note Disclamer 02/02/20 Unknown Coronavirus (PCR) Positive (Negative) A 02/03/20 08:32 - Diagnostic Impressions Diagnostic Impressions: Echocardiogram 01/30/20 06:00 Transthoracic Echocardiogram Indication: Brain infarct BP: 185/94 HR: 72 Conclusions *Mild concentric left ventricular hypertrophy is observed. *Global left ventricular systolic function is normal. *The estimated ejection fraction is 55-60%. *Abnormal left ventricular diastolic filling is observed, consistent with impaired relaxation. *There is mild aortic regurgitation. *There is no pericardial effusion. *Normal bubble study without evidence of intracardiac or intrapulmonary communication Findings Left Ventricle: The left ventricular chamber size is normal. Mild concentric left ventricular hypertrophy is observed. Global left ventricular systolic function is normal. The estimated ejection fraction is 55-60%. Abnormal left ventricular diastolic filling is observed, consistent with impaired relaxation. Left Atrium: The left atrial chamber size is normal. Right Ventricle: The right ventricular cavity size is normal. The right ventricular global systolic function is normal. Right Atrium: The right atrial cavity size is normal. No atrial septal defected is demonstrated by agitated saline contrast. Aortic Valve: The aortic valve is trileaflet. There is mild aortic regurgitation. Mitral Valve: The mitral valve leaflets are mildly thickened. There is trace of mitral regurgitation. Tricuspid Valve: The tricuspid valve leaflets are normal. There is trace tricuspid regurgitation. The right ventricular systolic pressure is calculated at 21 mmHg. Pulmonic Valve: The pulmonic valve appears normal. There is no evidence of pulmonic regurgitation. Pericardium: There is no pericardial effusion. There is a minimial pericardial effusion. Aorta: There is no dilatation of the ascending aorta. There is no dilatation of the aortic root. Venous: The inferior vena cava appears normal in size. There is a greater than 50% respiratory change in the inferior vena cava dimension. Measurements Chambers 2D Name Value Normal Range IVSd (2D) 1.26 cm (0.6 - 1.1) LVPWd (2D) 1.28 cm (0.6 - 1.1) LVIDd (2D) 4.16 cm (3.7 - 5.6) LVIDs (2D) 2.61 cm (2 - 3.8) LV FS (2D) 37.36 % - EF Teichholz (2D) 67.78 % - Ao root diameter (2D) 3.66 cm (2 - 3.7) Volumes/Mass Name Value Normal Range LA ESV SP 4CH (A/L) 47.43 ml - LA ESV SP 2CH (A/L) 49.43 ml - LA ESV BP (A/L) 50.34 ml - LA ESV BP (A/L) index 25.42 ml/m2 - LA ESV SP 4CH (MOD) 43.41 ml - LA ESV SP 2CH (MOD) 46.74 ml - LA ESV BP (MOD) 46.78 ml - LA ESV BP (MOD) index 23.63 ml/m2 - Diastolic/Systolic Function Name Value Normal Range MV E-wave Vmax 0.7 m/sec - MV deceleration time 237.63 msec - MV A-wave Vmax 0.85 m/sec - MV E:A ratio 0.82 ratio - Aortic Valve Name Value Normal Range AV Vmax 1.4 m/sec - AV VTI 24.22 cm - AV peak gradient 7.8 mmHg - AV mean gradient 4.66 mmHg - LVOT diameter 2.1 cm - LVOT Vmax 1.24 m/sec - LVOT VTI 28.19 cm - LVOT peak gradient 6.15 mmHg - LVOT mean gradient 3.55 mmHg - SV LVOT 97.55 ml - KETURAH (continuity Vmax) 3.07 cm2 - KETURAH (continuity VTI) 4.03 cm2 - AR PHT 535.67 msec - AR peak gradient 64.79 mmHg - Tricuspid Valve Name Value Normal Range TR Vmax 2.13 m/sec - TR peak gradient 18 mmHg - RAP 3 mmHg - RVSP 21 mmHg - IVC diameter 1.81 cm (1.2 - 2.3) Pulmonic Valve/Qp:Qs Name Value Normal Range PV Vmax 1.06 m/sec - PV peak gradient 4.47 mmHg - PV acceleration time 133.21 msec - Akhtar/IV: Voiding Method Urinal IV Catheter Type [Right Upper INT / Saline Lock arm] IV Catheter Type [Right INT / Saline Lock Forearm] IV Catheter Type [Left Forearm INT / Saline Lock ] IV Catheter Type [Right Hand] INT / Saline Lock IV Catheter Type [Left INT / Saline Lock Antecubital] Active Medications - Current Medications Current Medications: Generic Name Dose Route Start Last Admin Trade Name Freq PRN Reason Stop Dose Admin Acetaminophen 650 mg 01/30/20 02:02 Tylenol DC Q4H PRN Fever >101 Acetaminophen 650 mg 02/03/20 23:39 02/10/20 20:31 Tylenol PO 650 mg Q4H PRN Administration Pain, Mild (1-3) Amlodipine Besylate 10 mg 01/30/20 10:00 02/15/20 09:23 Amlodipine PO 10 mg DAILY MATEUSZ Administration Aspirin 325 mg 01/30/20 10:00 02/15/20 09:06 Aspirin PO 325 mg QDAY MATEUSZ Administration Atorvastatin Calcium 40 mg 01/30/20 10:00 02/15/20 09:06 Lipitor PO 40 mg QDAY MATEUSZ Administration Dextrose 0 ml 01/30/20 02:05 D50w (25gm) Syringe IV Q30MIN PRN Hypoglycemia Protocol Fish Oil 2,000 mg 02/02/20 12:00 02/15/20 09:06 Fish Oil PO 2,000 mg BID MATEUSZ Administration Haloperidol Lactate 5 mg 02/05/20 12:56 02/14/20 17:35 Haldol IM 5 mg Q6H PRN Administration Agitation Hydralazine HCl 10 mg 01/31/20 22:21 02/12/20 21:22 Apresoline IV 10 mg Q6H PRN Administration Blood Pressure Insulin Human Regular 0 units 02/06/20 11:30 02/15/20 09:03 Humulin R SUB-Q Not Given ACHS MATEUSZ Protocol Lisinopril 40 mg 01/30/20 10:00 02/15/20 09:26 Zestril PO 40 mg QDAY MATEUSZ Administration Melatonin 5 mg 02/02/20 11:47 02/10/20 21:00 Melatonin PO 5 mg QHS PRN Administration Sleep Naphazoline HCl/Pheniramine Maleate 2 drops 02/06/20 12:22 02/10/20 21:28 Visine-A OU 2 drops Q6H PRN Administration redness Ondansetron HCl 4 mg 01/30/20 02:02 02/03/20 21:06 Zofran IV 4 mg Q8H PRN Administration Nausea And Vomiting Zolpidem Tartrate 5 mg 01/31/20 22:21 02/12/20 21:14 Ambien PO 5 mg QHS PRN Administration Sleep Nutrition/Malnutrition Assess - Dietary Evaluation Nutrition/Malnutrition Findings: Nutrition Notes Start: 02/06/20 11:30 Freq: Status: Active Protocol: Document 02/06/20 11:30 LM (Rec: 02/06/20 11:31 [email or web address]) Nutrition Notes Need for Assessment generated from: LOS Initial or Follow up Brief Note Subjective/Other Information Screen for LOS. Pt with 75-100 % intakes in chart. Nutrition Intervention Revisit per MD consult or patient Sign Off request:
[2020-02-15] MEDS: HALOPERIDOL LACTATE 5 MG/1 ML INJ IM PRN ×2 (15:12→22:13)
[2020-02-15] MEDS: ZOLPIDEM 5 MG TAB PO PRN (21:49)
[2020-02-15] MEDS: hydrALAZINE 20 MG/1 ML INJ IV PRN (21:49)
[2020-02-16] MEDS: hydrALAZINE 20 MG/1 ML INJ IV PRN ×2 (06:49→21:41)
[2020-02-16] MEDS: INSULIN REGULAR, HUMAN 100 UNITS/1 ML SUB-Q SCH ×4 (09:07→21:25)
[2020-02-16] MEDS: LISINOPRIL 40 MG TAB PO SCH (09:09)
[2020-02-16] MEDS: amLODIPine 10 MG TAB PO SCH (09:09)
[2020-02-16] MEDS: OMEGA-3 FATTY ACIDS/FISH OIL 1 GRAM CAP PO SCH ×2 (09:09→21:25)
[2020-02-16] MEDS: ASPIRIN 325 MG TAB PO SCH (09:09)
--- NOTE | 2020-02-16 10:48 | Progress Note ---
Assessment and Plan Assessment and plan: Right basal ganglia lacunar infarct. Continue aspirin and statin. Follow-up CTA of neck and echocardiogram. Follow-up TSH T4. PT/OT. PT recommends subacute rehab. Covid-19 infection Asymptomatic Hypertension. Continue antihypertensive medications. Diabetes mellitus type 2. Continue Accu-Cheks and sliding scale insulin. Disposition. Subacute rehab when bed available. 02/01/2020. Echocardiogram reveals mild concentric left ventricular hypertrophy with EF of 55 to 60%. Normal bubble study without evidence of intracardiac or intrapulmonary communication. Carotid Doppler negative. MRI reveals 2.2 cm acute infarct involving the left middle cerebellar peduncle and anterior left cerebellum. Also, multiple old basal ganglia lacunar infarcts and mild to moderate microvascular angiopathy. PT recommends K[facility]. Continue PT/OT. Await placement. 02/02/2020. Continue aspirin and Lipitor. PT/OT. Blood pressure control with lisinopril and Norvasc. Hydralazine PRN. Awaiting subacute rehab placement 02/03/2020 Patient with acute right basal ganglia infarct. patient needs acutee rehab placement. numerical analysis group manager says patient needs covid-19 test. Ordered. 02/04/20 Patient with acute ischemic stroke. Awaiting placement at acute rehab. Covid-19 test ordered ,awaiting. 02/05/20 Patient with acute ischemic stroke. He is medically stable to discharge to Subacute Rehab. awaiting placement. patient was agitated, Nurse says patient hit her, code aguilar was called. Will start haldol prn, restraints, Psych following. Covid-19 positive 02/06/20 patient calm today. he is medically stable awaiting bed at SNF. Asymptomatic Covid-19 positive. 02/07/20 Patient with asymptomatic Covid-19 positive. He is awaiting SNF placement. 02/08/20 Patient with asymptomatic Covid-19 positive. No new complaints. He is awaiting SNF placement. 02/09/20 Patient is 54 yo presented with right sided weakness, diagnosed with acute stroke. Was to go to Rehab and Covid-19 test requested by Rehab, came back positive. he is asymptomatic. No cough, no fever, normal CXR. He is medically stable awaiting SNF placement. 02/10/2020. Case management working on bed placement. Patient otherwise stable. 02/11/2020. Patient is 54 yo presented with right sided weakness, diagnosed with acute stroke. Was to go to Rehab and Covid-19 test requested by Rehab, came back positive. he is asymptomatic. No cough, no fever, normal CXR. He is medically stable awaiting SNF placement. 02/12/2020. Patient is 54 yo presented with right sided weakness, diagnosed with acute stroke. Was to go to Rehab and Covid-19 test requested by Rehab, came back positive. he is asymptomatic. No cough, no fever, normal CXR. He is medically stable awaiting SNF placement. 02/13/20. Patient awaiting bed availability. 02/14/20. Patient is 54 yo presented with right sided weakness, diagnosed with acute stroke. Was to go to Rehab and Covid-19 test requested by Rehab, came back positive. he is asymptomatic. No cough, no fever, normal CXR. He is medically stable awaiting SNF placement. 02/15/2020. Patient is 54 yo presented with right sided weakness, diagnosed with acute stroke. Was to go to Rehab and Covid-19 test requested by Rehab, came back positive. he is asymptomatic. No cough, no fever, normal CXR. He is medically stable awaiting SNF placement. I updated the sister with plan of care. 02/16/2020. Awaiting placement. - Patient Problems (1) Acute lacunar infarction Current Visit: Yes Status: Acute (2) Cocaine use disorder, severe, dependence Current Visit: Yes Status: Acute (3) Hypertensive urgency, malignant Current Visit: Yes Status: Acute History Interval history: No new issues Hospitalist Physical - Constitutional Vitals: Temp Pulse Resp BP Pulse Ox 98.9 F 68 16 139/82 97 02/16/20 05:42 02/16/20 06:49 02/16/20 08:00 02/16/20 09:17 02/16/20 08:00 General appearance: Present: no acute distress, well-nourished - EENT Eyes: Present: PERRL, EOM intact ENT: hearing intact, clear oral mucosa, dentition normal - Neck Neck: Present: supple, normal ROM - Respiratory Respiratory effort: normal Respiratory: bilateral: CTA - Cardiovascular Rhythm: regular Heart Sounds: Present: S1 & S2. Absent: gallop, rub - Extremities Extremities: no ischemia, No edema, Full ROM - Abdominal General gastrointestinal: soft, non-tender, non-distended, normal bowel sounds - Integumentary Integumentary: Present: clear, warm, dry - Neurologic Neurologic: CNII-XII intact, moves all extremities HEART Score - HEART Score Troponin: Troponin T < 0.010 ng/mL (0.00-0.029) 01/29/20 23:06 Results - Labs CBC & Chem 7: 02/06/20 05:09 02/06/20 16:02 Labs: Laboratory Last Values WBC 8.7 K/mm3 (4.5-11.0) 02/06/20 05:09 RBC 5.17 M/mm3 (3.65-5.03) H 02/06/20 05:09 Hgb 14.9 gm/dl (11.8-15.2) 02/06/20 05:09 Hct 43.0 % (35.5-45.6) 02/06/20 05:09 MCV 83 fl (84-94) L 02/06/20 05:09 MCH 29 pg (28-32) 02/06/20 05:09 MCHC 35 % (32-34) H 02/06/20 05:09 RDW 15.1 % (13.2-15.2) 02/06/20 05:09 Plt Count 354 K/mm3 (140-440) 02/06/20 05:09 Lymph % (Auto) 39.7 % (13.4-35.0) H 01/29/20 23:06 [place] % (Auto) 14.7 % (0.0-7.3) H 01/29/20 23:06 Eos % (Auto) 2.1 % (0.0-4.3) 01/29/20 23:06 Baso % (Auto) 1.1 % (0.0-1.8) 01/29/20 23:06 Lymph # 2.8 K/mm3 (1.2-5.4) 01/29/20 23:06 [place] # 1.0 K/mm3 (0.0-0.8) H 01/29/20 23:06 Eos # 0.1 K/mm3 (0.0-0.4) 01/29/20 23:06 Baso # 0.1 K/mm3 (0.0-0.1) 01/29/20 23:06 Seg Neutrophils % 42.4 % (40.0-70.0) 01/29/20 23:06 Seg Neutrophils # 3.0 K/mm3 (1.8-7.7) 01/29/20 23:06 PT 14.0 Sec. (12.2-14.9) 01/29/20 23:06 INR 1.07 (0.87-1.13) 01/29/20 23:06 APTT 27.5 Sec. (24.2-36.6) 01/29/20 23:06 Thrombin Time 15.8 Sec. (15.1-19.6) 01/29/20 23:06 D-Dimer 173.65 ng/mlDDU (0-234) 02/08/20 13:28 Sodium 140 mmol/L (137-145) 02/06/20 05:09 Potassium 3.6 mmol/L (3.6-5.0) 02/06/20 16:02 Chloride 104.7 mmol/L (98-107) 02/06/20 05:09 Carbon Dioxide 21 mmol/L (22-30) L 02/06/20 05:09 Anion Gap 18 mmol/L 02/06/20 05:09 BUN 16 mg/dL (9-20) 02/06/20 05:09 Creatinine 0.9 mg/dL (0.8-1.5) 02/06/20 05:09 Estimated GFR > 60 ml/min 02/06/20 05:09 BUN/Creatinine Ratio 18 % 02/06/20 05:09 Glucose 135 mg/dL (75-100) H 02/06/20 05:09 POC Glucose 217 (70-105) H 02/12/20 11:50 Calcium 9.6 mg/dL (8.4-10.2) 02/06/20 05:09 Magnesium 2.30 mg/dL (1.7-2.3) 02/06/20 16:02 Ferritin 265.5 ng/mL (13.0-400.0) 02/08/20 13:28 Lactate Dehydrogenase 252 units/L (91-180) H 02/08/20 13:28 Troponin T < 0.010 ng/mL (0.00-0.029) 01/29/20 23:06 C-Reactive Protein < 0.03 mg/dL (0.00-1.30) 02/08/20 13:28 Triglycerides 293 mg/dL (2-149) H 01/30/20 13:26 Cholesterol 162 mg/dL (50-199) 01/30/20 13:26 LDL Cholesterol Direct 105 mg/dL (50-130) 01/30/20 13:26 HDL Cholesterol 31 mg/dL (40-59) L 01/30/20 13:26 Cholesterol/HDL Ratio 5.22 % 01/30/20 13:26 Procalcitonin < 0.05 ng/mL (<0.15) 02/04/20 14:59 Nasal Screen MRSA (PCR) Negative (Negative) 01/30/20 04:50 Urine Opiates Screen Presumptive negative 02/02/20 Unknown Urine Methadone Screen Presumptive negative 02/02/20 Unknown Ur Barbiturates Screen Presumptive negative 02/02/20 Unknown Ur Phencyclidine Scrn Presumptive negative 02/02/20 Unknown Ur Amphetamines Screen Presumptive positive 02/02/20 Unknown U Benzodiazepines Scrn Presumptive negative 02/02/20 Unknown Urine Cocaine Screen Presumptive negative 02/02/20 Unknown U Marijuana (THC) Screen Presumptive negative 02/02/20 Unknown Drugs of Abuse Note Disclamer 02/02/20 Unknown Coronavirus (PCR) Positive (Negative) A 02/03/20 08:32 - Diagnostic Impressions Diagnostic Impressions: Echocardiogram 01/30/20 06:00 Transthoracic Echocardiogram Indication: Brain infarct BP: 185/94 HR: 72 Conclusions *Mild concentric left ventricular hypertrophy is observed. *Global left ventricular systolic function is normal. *The estimated ejection fraction is 55-60%. *Abnormal left ventricular diastolic filling is observed, consistent with impaired relaxation. *There is mild aortic regurgitation. *There is no pericardial effusion. *Normal bubble study without evidence of intracardiac or intrapulmonary communication Findings Left Ventricle: The left ventricular chamber size is normal. Mild concentric left ventricular hypertrophy is observed. Global left ventricular systolic function is normal. The estimated ejection fraction is 55-60%. Abnormal left ventricular diastolic filling is observed, consistent with impaired relaxation. Left Atrium: The left atrial chamber size is normal. Right Ventricle: The right ventricular cavity size is normal. The right ventricular global systolic function is normal. Right Atrium: The right atrial cavity size is normal. No atrial septal defected is demonstrated by agitated saline contrast. Aortic Valve: The aortic valve is trileaflet. There is mild aortic regurgitation. Mitral Valve: The mitral valve leaflets are mildly thickened. There is trace of mitral regurgitation. Tricuspid Valve: The tricuspid valve leaflets are normal. There is trace tricuspid regurgitation. The right ventricular systolic pressure is calculated at 21 mmHg. Pulmonic Valve: The pulmonic valve appears normal. There is no evidence of pulmonic regurgitation. Pericardium: There is no pericardial effusion. There is a minimial pericardial effusion. Aorta: There is no dilatation of the ascending aorta. There is no dilatation of the aortic root. Venous: The inferior vena cava appears normal in size. There is a greater than 50% respiratory change in the inferior vena cava dimension. Measurements Chambers 2D Name Value Normal Range IVSd (2D) 1.26 cm (0.6 - 1.1) LVPWd (2D) 1.28 cm (0.6 - 1.1) LVIDd (2D) 4.16 cm (3.7 - 5.6) LVIDs (2D) 2.61 cm (2 - 3.8) LV FS (2D) 37.36 % - EF Teichholz (2D) 67.78 % - Ao root diameter (2D) 3.66 cm (2 - 3.7) Volumes/Mass Name Value Normal Range LA ESV SP 4CH (A/L) 47.43 ml - LA ESV SP 2CH (A/L) 49.43 ml - LA ESV BP (A/L) 50.34 ml - LA ESV BP (A/L) index 25.42 ml/m2 - LA ESV SP 4CH (MOD) 43.41 ml - LA ESV SP 2CH (MOD) 46.74 ml - LA ESV BP (MOD) 46.78 ml - LA ESV BP (MOD) index 23.63 ml/m2 - Diastolic/Systolic Function Name Value Normal Range MV E-wave Vmax 0.7 m/sec - MV deceleration time 237.63 msec - MV A-wave Vmax 0.85 m/sec - MV E:A ratio 0.82 ratio - Aortic Valve Name Value Normal Range AV Vmax 1.4 m/sec - AV VTI 24.22 cm - AV peak gradient 7.8 mmHg - AV mean gradient 4.66 mmHg - LVOT diameter 2.1 cm - LVOT Vmax 1.24 m/sec - LVOT VTI 28.19 cm - LVOT peak gradient 6.15 mmHg - LVOT mean gradient 3.55 mmHg - SV LVOT 97.55 ml - KETURAH (continuity Vmax) 3.07 cm2 - KETURAH (continuity VTI) 4.03 cm2 - AR PHT 535.67 msec - AR peak gradient 64.79 mmHg - Tricuspid Valve Name Value Normal Range TR Vmax 2.13 m/sec - TR peak gradient 18 mmHg - RAP 3 mmHg - RVSP 21 mmHg - IVC diameter 1.81 cm (1.2 - 2.3) Pulmonic Valve/Qp:Qs Name Value Normal Range PV Vmax 1.06 m/sec - PV peak gradient 4.47 mmHg - PV acceleration time 133.21 msec - Akhtar/IV: Voiding Method Urinal IV Catheter Type [Right Upper INT / Saline Lock arm] IV Catheter Type [Right INT / Saline Lock Forearm] IV Catheter Type [Left Forearm INT / Saline Lock ] IV Catheter Type [Right Hand] INT / Saline Lock IV Catheter Type [Left INT / Saline Lock Antecubital] Active Medications - Current Medications Current Medications: Generic Name Dose Route Start Last Admin Trade Name Freq PRN Reason Stop Dose Admin Acetaminophen 650 mg 01/30/20 02:02 Tylenol GA Q4H PRN Fever >101 Acetaminophen 650 mg 02/03/20 23:39 02/10/20 20:31 Tylenol PO 650 mg Q4H PRN Administration Pain, Mild (1-3) Amlodipine Besylate 10 mg 01/30/20 10:00 02/16/20 09:09 Amlodipine PO 10 mg DAILY MATEUSZ Administration Aspirin 325 mg 01/30/20 10:00 02/16/20 09:09 Aspirin PO 325 mg QDAY MATEUSZ Administration Atorvastatin Calcium 40 mg 01/30/20 10:00 02/16/20 09:09 Lipitor PO 40 mg QDAY MATEUSZ Administration Dextrose 0 ml 01/30/20 02:05 D50w (25gm) Syringe IV Q30MIN PRN Hypoglycemia Protocol Fish Oil 2,000 mg 02/02/20 12:00 02/16/20 09:09 Fish Oil PO 2,000 mg BID MATEUSZ Administration Haloperidol Lactate 5 mg 02/05/20 12:56 02/15/20 22:13 Haldol IM 5 mg Q6H PRN Administration Agitation Hydralazine HCl 10 mg 01/31/20 22:21 02/16/20 06:49 Apresoline IV 10 mg Q6H PRN Administration Blood Pressure Insulin Human Regular 0 units 02/06/20 11:30 02/16/20 09:07 Humulin R SUB-Q Not Given [facility] Protocol Lisinopril 40 mg 01/30/20 10:00 02/16/20 09:09 Zestril PO 40 mg QDAY MATEUSZ Administration Melatonin 5 mg 02/02/20 11:47 02/10/20 21:00 Melatonin PO 5 mg QHS PRN Administration Sleep Naphazoline HCl/Pheniramine Maleate 2 drops 02/06/20 12:22 02/10/20 21:28 Visine-A OU 2 drops Q6H PRN Administration redness Ondansetron HCl 4 mg 01/30/20 02:02 02/03/20 21:06 Zofran IV 4 mg Q8H PRN Administration Nausea And Vomiting Zolpidem Tartrate 5 mg 01/31/20 22:21 02/15/20 21:49 Ambien PO 5 mg QHS PRN Administration Sleep Nutrition/Malnutrition Assess - Dietary Evaluation Nutrition/Malnutrition Findings: Nutrition Notes Start: 02/06/20 11:30 Freq: Status: Active Protocol: Document 02/06/20 11:30 LM (Rec: 02/06/20 11:31 LM [id number]) Nutrition Notes Need for Assessment generated from: LOS Initial or Follow up Brief Note Subjective/Other Information Screen for LOS. Pt with 75-100 % intakes in chart. Nutrition Intervention Revisit per MD consult or patient Sign Off request:
[2020-02-17] MEDS: hydrALAZINE 20 MG/1 ML INJ IV PRN (05:19)
[2020-02-17] MEDS: INSULIN REGULAR, HUMAN 100 UNITS/1 ML SUB-Q SCH ×4 (07:31→17:16)
[2020-02-17] MEDS: LISINOPRIL 40 MG TAB PO SCH (10:04)
[2020-02-17] MEDS: amLODIPine 10 MG TAB PO SCH (10:05)
[2020-02-17] MEDS: OMEGA-3 FATTY ACIDS/FISH OIL 1 GRAM CAP PO SCH ×2 (10:05→21:57)
[2020-02-17] MEDS: ASPIRIN 325 MG TAB PO SCH (10:05)
[2020-02-17] MEDS: HALOPERIDOL LACTATE 5 MG/1 ML INJ IM PRN ×2 (13:45→21:58)
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
[2020-02-17] MEDS: ZOLPIDEM 5 MG TAB PO PRN (21:58)
[2020-02-18] MEDS: INSULIN REGULAR, HUMAN 100 UNITS/1 ML SUB-Q SCH ×4 (00:02→16:28)
--- NOTE | 2020-02-18 09:15 | Progress Note ---
Assessment and Plan Assessment and plan: Right basal ganglia lacunar infarct. Continue aspirin and statin. Follow-up CTA of neck and echocardiogram. Follow-up TSH T4. PT/OT. PT recommends subacute rehab. Covid-19 infection Asymptomatic Hypertension. Continue antihypertensive medications. Diabetes mellitus type 2. Continue Accu-Cheks and sliding scale insulin. Disposition. Subacute rehab when bed available. 02/01/2020. Echocardiogram reveals mild concentric left ventricular hypertrophy with EF of 55 to 60%. Normal bubble study without evidence of intracardiac or intrapulmonary communication. Carotid Doppler negative. MRI reveals 2.2 cm acute infarct involving the left middle cerebellar peduncle and anterior left cerebellum. Also, multiple old basal ganglia lacunar infarcts and mild to moderate microvascular angiopathy. PT recommends KYE. Continue PT/OT. Await placement. 02/02/2020. Continue aspirin and Lipitor. PT/OT. Blood pressure control with lisinopril and Norvasc. Hydralazine PRN. Awaiting subacute rehab placement 02/03/2020 Patient with acute right basal ganglia infarct. patient needs acutee rehab placement. diabetes clinical manager says patient needs covid-19 test. Ordered. 02/04/20 Patient with acute ischemic stroke. Awaiting placement at acute rehab. Covid-19 test ordered ,awaiting. 02/05/20 Patient with acute ischemic stroke. He is medically stable to discharge to Subacute Rehab. awaiting placement. patient was agitated, Nurse says patient hit her, code aguilar was called. Will start haldol prn, restraints, Psych following. Covid-19 positive 02/06/20 patient calm today. he is medically stable awaiting bed at SNF. Asymptomatic Covid-19 positive. 02/07/20 Patient with asymptomatic Covid-19 positive. He is awaiting SNF placement. 02/08/20 Patient with asymptomatic Covid-19 positive. No new complaints. He is awaiting SNF placement. 02/09/20 Patient is 54 yo presented with right sided weakness, diagnosed with acute stroke. Was to go to Rehab and Covid-19 test requested by Rehab, came back positive. he is asymptomatic. No cough, no fever, normal CXR. He is medically stable awaiting SNF placement. 02/10/2020. Case management working on bed placement. Patient otherwise stable. 02/11/2020. Patient is 54 yo presented with right sided weakness, diagnosed with acute stroke. Was to go to Rehab and Covid-19 test requested by Rehab, came back positive. he is asymptomatic. No cough, no fever, normal CXR. He is medically stable awaiting SNF placement. 02/12/2020. Patient is 54 yo presented with right sided weakness, diagnosed with acute stroke. Was to go to Rehab and Covid-19 test requested by Rehab, came back positive. he is asymptomatic. No cough, no fever, normal CXR. He is medically stable awaiting SNF placement. 02/13/20. Patient awaiting bed availability. 02/14/20. Patient is 54 yo presented with right sided weakness, diagnosed with acute stroke. Was to go to Rehab and Covid-19 test requested by Rehab, came back positive. he is asymptomatic. No cough, no fever, normal CXR. He is medically stable awaiting SNF placement. 02/15/2020. Patient is 54 yo presented with right sided weakness, diagnosed with acute stroke. Was to go to Rehab and Covid-19 test requested by Rehab, came back positive. he is asymptomatic. No cough, no fever, normal CXR. He is medically stable awaiting SNF placement. I updated the sister with plan of care. 02/16/2020. Awaiting placement. 02/17/2020 Patient with acute systemic stroke, asymptomatic covid-19 infection. Repeat Covid-19 test negative. He is medically stable, awaiting placement. 02/18/2020 Patient with acute systemic stroke, asymptomatic covid-19 infection. Repeat Covid-19 test negative. He is medically stable, awaiting placement. History Interval history: patient initially presented with left sided weakness diagnosed with acute ischemic stroke. Also found to have asymptomatic Covid-19 infection Hospitalist Physical - Physical exam Narrative exam: GEN: Not in acute distress, obese, lying in bed HEENT: Normocephalic, atraumatic, Neck: supple, No JVD Lungs: Clear to auscultation bilaterally, heart;S1 and S2 reg, no murmurs, rubs or gallop Abd:soft, non tender, non distended, normal bowel sounds, Ext: No edema, no clubbing, no cyanosis, Neuro: Awake,alert,left sided weakness - Constitutional Vitals: Temp Pulse Resp BP Pulse Ox 97.8 F 72 16 152/87 96 02/18/20 03:28 02/18/20 03:28 02/18/20 03:28 02/18/20 03:28 02/18/20 07:08 General appearance: Present: no acute distress, well-nourished HEART Score - HEART Score Troponin: Troponin T < 0.010 ng/mL (0.00-0.029) 01/29/20 23:06 Results - Labs CBC & Chem 7: 02/06/20 05:09 02/06/20 16:02 Labs: Laboratory Last Values WBC 8.7 K/mm3 (4.5-11.0) 02/06/20 05:09 RBC 5.17 M/mm3 (3.65-5.03) H 02/06/20 05:09 Hgb 14.9 gm/dl (11.8-15.2) 02/06/20 05:09 Hct 43.0 % (35.5-45.6) 02/06/20 05:09 MCV 83 fl (84-94) L 02/06/20 05:09 MCH 29 pg (28-32) 02/06/20 05:09 MCHC 35 % (32-34) H 02/06/20 05:09 RDW 15.1 % (13.2-15.2) 02/06/20 05:09 Plt Count 354 K/mm3 (140-440) 02/06/20 05:09 Lymph % (Auto) 39.7 % (13.4-35.0) H 01/29/20 23:06 Thomas % (Auto) 14.7 % (0.0-7.3) H 01/29/20 23:06 Eos % (Auto) 2.1 % (0.0-4.3) 01/29/20 23:06 Baso % (Auto) 1.1 % (0.0-1.8) 01/29/20 23:06 Lymph # 2.8 K/mm3 (1.2-5.4) 01/29/20 23:06 Thomas # 1.0 K/mm3 (0.0-0.8) H 01/29/20 23:06 Eos # 0.1 K/mm3 (0.0-0.4) 01/29/20 23:06 Baso # 0.1 K/mm3 (0.0-0.1) 01/29/20 23:06 Seg Neutrophils % 42.4 % (40.0-70.0) 01/29/20 23:06 Seg Neutrophils # 3.0 K/mm3 (1.8-7.7) 01/29/20 23:06 PT 14.0 Sec. (12.2-14.9) 01/29/20 23:06 INR 1.07 (0.87-1.13) 01/29/20 23:06 APTT 27.5 Sec. (24.2-36.6) 01/29/20 23:06 Thrombin Time 15.8 Sec. (15.1-19.6) 01/29/20 23:06 D-Dimer 173.65 ng/mlDDU (0-234) 02/08/20 13:28 Sodium 140 mmol/L (137-145) 02/06/20 05:09 Potassium 3.6 mmol/L (3.6-5.0) 02/06/20 16:02 Chloride 104.7 mmol/L (98-107) 02/06/20 05:09 Carbon Dioxide 21 mmol/L (22-30) L 02/06/20 05:09 Anion Gap 18 mmol/L 02/06/20 05:09 BUN 16 mg/dL (9-20) 02/06/20 05:09 Creatinine 0.9 mg/dL (0.8-1.5) 02/06/20 05:09 Estimated GFR > 60 ml/min 02/06/20 05:09 BUN/Creatinine Ratio 18 % 02/06/20 05:09 Glucose 135 mg/dL (75-100) H 02/06/20 05:09 POC Glucose 119 (70-105) H 02/18/20 08:17 Calcium 9.6 mg/dL (8.4-10.2) 02/06/20 05:09 Magnesium 2.30 mg/dL (1.7-2.3) 02/06/20 16:02 Ferritin 265.5 ng/mL (13.0-400.0) 02/08/20 13:28 Lactate Dehydrogenase 252 units/L (91-180) H 02/08/20 13:28 Troponin T < 0.010 ng/mL (0.00-0.029) 01/29/20 23:06 C-Reactive Protein < 0.03 mg/dL (0.00-1.30) 02/08/20 13:28 Triglycerides 293 mg/dL (2-149) H 01/30/20 13:26 Cholesterol 162 mg/dL (50-199) 01/30/20 13:26 LDL Cholesterol Direct 105 mg/dL (50-130) 01/30/20 13:26 HDL Cholesterol 31 mg/dL (40-59) L 01/30/20 13:26 Cholesterol/HDL Ratio 5.22 % 01/30/20 13:26 Procalcitonin < 0.05 ng/mL (<0.15) 02/04/20 14:59 Nasal Screen MRSA (PCR) Negative (Negative) 01/30/20 04:50 Urine Opiates Screen Presumptive negative 02/02/20 Unknown Urine Methadone Screen Presumptive negative 02/02/20 Unknown Ur Barbiturates Screen Presumptive negative 02/02/20 Unknown Ur Phencyclidine Scrn Presumptive negative 02/02/20 Unknown Ur Amphetamines Screen Presumptive positive 02/02/20 Unknown U Benzodiazepines Scrn Presumptive negative 02/02/20 Unknown Urine Cocaine Screen Presumptive negative 02/02/20 Unknown U Marijuana (THC) Screen Presumptive negative 02/02/20 Unknown Drugs of Abuse Note Disclamer 02/02/20 Unknown Coronavirus (PCR) Negative (Negative) 02/16/20 07:24 - Diagnostic Impressions Diagnostic Impressions: Echocardiogram 01/30/20 06:00 Transthoracic Echocardiogram Indication: Brain infarct BP: 185/94 HR: 72 Conclusions *Mild concentric left ventricular hypertrophy is observed. *Global left ventricular systolic function is normal. *The estimated ejection fraction is 55-60%. *Abnormal left ventricular diastolic filling is observed, consistent with impaired relaxation. *There is mild aortic regurgitation. *There is no pericardial effusion. *Normal bubble study without evidence of intracardiac or intrapulmonary communication Findings Left Ventricle: The left ventricular chamber size is normal. Mild concentric left ventricular hypertrophy is observed. Global left ventricular systolic function is normal. The estimated ejection fraction is 55-60%. Abnormal left ventricular diastolic filling is observed, consistent with impaired relaxation. Left Atrium: The left atrial chamber size is normal. Right Ventricle: The right ventricular cavity size is normal. The right ventricular global systolic function is normal. Right Atrium: The right atrial cavity size is normal. No atrial septal defected is demonstrated by agitated saline contrast. Aortic Valve: The aortic valve is trileaflet. There is mild aortic regurgitation. Mitral Valve: The mitral valve leaflets are mildly thickened. There is trace of mitral regurgitation. Tricuspid Valve: The tricuspid valve leaflets are normal. There is trace tricuspid regurgitation. The right ventricular systolic pressure is calculated at 21 mmHg. Pulmonic Valve: The pulmonic valve appears normal. There is no evidence of pulmonic regurgitation. Pericardium: There is no pericardial effusion. There is a minimial pericardial effusion. Aorta: There is no dilatation of the ascending aorta. There is no dilatation of the aortic root. Venous: The inferior vena cava appears normal in size. There is a greater than 50% respiratory change in the inferior vena cava dimension. Measurements Chambers 2D Name Value Normal Range IVSd (2D) 1.26 cm (0.6 - 1.1) LVPWd (2D) 1.28 cm (0.6 - 1.1) LVIDd (2D) 4.16 cm (3.7 - 5.6) LVIDs (2D) 2.61 cm (2 - 3.8) LV FS (2D) 37.36 % - EF Teichholz (2D) 67.78 % - Ao root diameter (2D) 3.66 cm (2 - 3.7) Volumes/Mass Name Value Normal Range LA ESV SP 4CH (A/L) 47.43 ml - LA ESV SP 2CH (A/L) 49.43 ml - LA ESV BP (A/L) 50.34 ml - LA ESV BP (A/L) index 25.42 ml/m2 - LA ESV SP 4CH (MOD) 43.41 ml - LA ESV SP 2CH (MOD) 46.74 ml - LA ESV BP (MOD) 46.78 ml - LA ESV BP (MOD) index 23.63 ml/m2 - Diastolic/Systolic Function Name Value Normal Range MV E-wave Vmax 0.7 m/sec - MV deceleration time 237.63 msec - MV A-wave Vmax 0.85 m/sec - MV E:A ratio 0.82 ratio - Aortic Valve Name Value Normal Range AV Vmax 1.4 m/sec - AV VTI 24.22 cm - AV peak gradient 7.8 mmHg - AV mean gradient 4.66 mmHg - LVOT diameter 2.1 cm - LVOT Vmax 1.24 m/sec - LVOT VTI 28.19 cm - LVOT peak gradient 6.15 mmHg - LVOT mean gradient 3.55 mmHg - SV LVOT 97.55 ml - KETURAH (continuity Vmax) 3.07 cm2 - KETURAH (continuity VTI) 4.03 cm2 - AR PHT 535.67 msec - AR peak gradient 64.79 mmHg - Tricuspid Valve Name Value Normal Range TR Vmax 2.13 m/sec - TR peak gradient 18 mmHg - RAP 3 mmHg - RVSP 21 mmHg - IVC diameter 1.81 cm (1.2 - 2.3) Pulmonic Valve/Qp:Qs Name Value Normal Range PV Vmax 1.06 m/sec - PV peak gradient 4.47 mmHg - PV acceleration time 133.21 msec - Akhtar/IV: Voiding Method Urinal IV Catheter Type [Right Upper INT / Saline Lock arm] IV Catheter Type [Right INT / Saline Lock Forearm] IV Catheter Type [Left Forearm INT / Saline Lock ] IV Catheter Type [Right Hand] INT / Saline Lock IV Catheter Type [Left INT / Saline Lock Antecubital] Active Medications - Current Medications Current Medications: Generic Name Dose Route Start Last Admin Trade Name Freq PRN Reason Stop Dose Admin Acetaminophen 650 mg 01/30/20 02:02 Tylenol LA Q4H PRN Fever >101 Acetaminophen 650 mg 02/03/20 23:39 02/10/20 20:31 Tylenol PO 650 mg Q4H PRN Administration Pain, Mild (1-3) Amlodipine Besylate 10 mg 01/30/20 10:00 02/17/20 10:05 Amlodipine PO 10 mg DAILY MATEUSZ Administration Aspirin 325 mg 01/30/20 10:00 02/17/20 10:05 Aspirin PO 325 mg QDAY MATEUSZ Administration Atorvastatin Calcium 40 mg 01/30/20 10:00 02/17/20 12:08 Lipitor PO 40 mg QDAY MATEUSZ Administration Dextrose 0 ml 01/30/20 02:05 D50w (25gm) Syringe IV Q30MIN PRN Hypoglycemia Protocol Fish Oil 2,000 mg 02/02/20 12:00 02/17/20 21:57 Fish Oil PO 2,000 mg BID MATEUSZ Administration Haloperidol Lactate 5 mg 02/05/20 12:56 02/17/20 21:58 Haldol IM 5 mg Q6H PRN Administration Agitation Hydralazine HCl 10 mg 01/31/20 22:21 02/17/20 05:19 Apresoline IV 10 mg Q6H PRN Administration Blood Pressure Insulin Human Regular 0 units 02/06/20 11:30 02/18/20 08:22 Humulin R SUB-Q Not Given ACHS [facility] Protocol Lisinopril 40 mg 01/30/20 10:00 02/17/20 10:04 Zestril PO 40 mg QDAY MATEUSZ Administration Melatonin 5 mg 02/02/20 11:47 02/10/20 21:00 Melatonin PO 5 mg QHS PRN Administration Sleep Naphazoline HCl/Pheniramine Maleate 2 drops 02/06/20 12:22 02/10/20 21:28 Visine-A OU 2 drops Q6H PRN Administration redness Ondansetron HCl 4 mg 01/30/20 02:02 02/03/20 21:06 Zofran IV 4 mg Q8H PRN Administration Nausea And Vomiting Zolpidem Tartrate 5 mg 01/31/20 22:21 02/17/20 21:58 Ambien PO 5 mg QHS PRN Administration Sleep Nutrition/Malnutrition Assess - Dietary Evaluation Nutrition/Malnutrition Findings: Nutrition Notes Start: 02/06/20 11:30 Freq: Status: Active Protocol: Document 02/06/20 11:30 LM (Rec: 02/06/20 11:31 LM [id number]) Nutrition Notes Need for Assessment generated from: LOS Initial or Follow up Brief Note Subjective/Other Information Screen for LOS. Pt with 75-100 % intakes in chart. Nutrition Intervention Revisit per MD consult or patient Sign Off request:
[2020-02-18] MEDS: LISINOPRIL 40 MG TAB PO SCH (09:17)
[2020-02-18] MEDS: ASPIRIN 325 MG TAB PO SCH (09:17)
[2020-02-18] MEDS: amLODIPine 10 MG TAB PO SCH (09:17)
[2020-02-18] MEDS: OMEGA-3 FATTY ACIDS/FISH OIL 1 GRAM CAP PO SCH (09:18)
--- NOTE | 2020-02-18 14:21 | Discharge Summary ---
Providers - Providers Date of Admission: 01/31/20 11:38 Date of discharge: 02/18/20 Attending physician: FRANCI COLLINS 01/30/20 06:00 Consult to Physician [CONS] Routine Comment: Consulting Provider: TOM AMAYA Physician Instructions: Reason For Exam: ATAXIA AND LACUNAR BRAIN INFARCT Physical Therapy Evaluation and Treat [CONS] Routine Comment: Reason For Exam: ATAXIA Speech Therapy Evaluation and Treat [CONS] Routine Reason For Exam: SPEECH IMPAIRMENT 02/01/20 14:55 Consult to Mental Health [CONS] Routine Reason For Exam: Depressed mood 02/04/20 14:17 Consult to Physician [CONS] Routine Comment: Consulting Provider: SHUBHAM MORA Physician Instructions: Reason For Exam: Covid-19 pos 02/06/20 10:58 Speech Therapy Evaluation and Treat [CONS] Stat Reason For Exam: packeting food and difficulty swallowing water 02/15/20 07:46 Speech Therapy Evaluation and Treat [CONS] Routine Reason For Exam: language deficit [facility] Hospital course: Patient is a 54-year-old male with hypertension, diabetes. He presented with difficulty maintaining his balance while walking, and numbness on the left side of the face, and difficulty with speech. He denies history of fever, cough, chest pain, nausea or vomiting. CT head was negative for acute stroke. He was given Aspirin and admitted to rule out stroke. MRI Brain confirmed acute ischemic stroke left cerebellum. He was seen by PT and arrangements being made for SNF placcement. Covid-19mtesting was done as part of requirement and this came back positive, even though he was asymptomatic, Chest x ray was negative, he had no fever. He was transferred to [place] [id number] floor, He was evaluated by ID. he had a prolonged course waiting on bed and was eventually discharged to [facility] on 02/18/20 Acute ischemic stroke. Continue aspirin and statin. Covid-19 infection Asymptomatic Hypertension. Continue antihypertensive medications. Diabetes mellitus type 2. Continue Accu-Cheks and sliding scale insulin 02/01/2020. Echocardiogram reveals mild concentric left ventricular hypertrophy with EF of 55 to 60%. Normal bubble study without evidence of intracardiac or intrapulmonary communication. Carotid Doppler negative. MRI reveals 2.2 cm a cute infarct involving the left middle cerebellar peduncle and anterior left cerebellum. Also, multiple old basal ganglia lacunar infarcts and mild to moderate microvascular angiopathy. PT recommends KYE. Continue PT/OT. Await placement. 02/02/2020. Continue aspirin and Lipitor. PT/OT. Blood pressure control with lisinopril and Norvasc. Hydralazine PRN. Awaiting subacute rehab placement 02/03/2020 Patient with acute right basal ganglia infarct. patient needs acutee rehab placement. heavy equipment sales manager says patient needs covid-19 test. Ordered. 02/04/20 Patient with acute ischemic stroke. Awaiting placement at acute rehab. Covid-19 test ordered ,awaiting. 02/05/20 Patient with acute ischemic stroke. He is medically stable to discharge to Subacute Rehab. awaiting placement. patient was agitated, Nurse says patient hit her, code aguialr was called. Will start haldol prn, restraints, Psych following. Covid-19 positive 02/06/20 patient calm today. he is medically stable awaiting bed at SNF. As ymptomatic Covid-19 positive. 02/07/20 Patient with asymptomatic Covid-19 positive. He is awaiting SNF placement. 02/08/20 Patient with asymptomatic Covid-19 positive. No new complaints. He is awaiting SNF placement. 02/09/20 Patient is 54 yo presented with right sided weakness, diagnosed with acute stroke. Was to go to Rehab and Covid-19 test requested by Rehab, came back positive. he is asymptomatic. No cough, no fever, normal CXR. He is medically stable awaiting SNF placement. 02/10/2020. Case management working on bed placement. Patient otherwise stable. 02/11/2020. Patient is 54 yo presented with right sided weakness, diagnosed with acute stroke. Was to go to Rehab and Covid-19 test requested by Rehab, came back positive. he is asymptomatic. No cough, no fever, normal CXR. He is medically stable awaiting SNF placement. 02/12/2020. Patient is 54 yo presented with right sided weakness, diagnosed with acute stroke. Was to go to Rehab and Covid-19 test requested by Rehab, came back positive. he is asymptomatic. No cough, no fever, normal CXR. He is medically stable awaiting SNF placement. 02/13/20. Patient awaiting bed availability. 02/14/20. Patient is 54 yo presented with right sided weakness, diagnosed with acute stroke. Was to go to Rehab and Covid-19 test requested by Rehab, came back positive. he is asymptomatic. No cough, no fever, normal CXR. He is medically stable awaiting SNF placement. 02/15/2020. Patient is 54 yo presented with right sided weakness, diagnosed with acute stroke. Was to go to Rehab and Covid-19 test requested by Rehab, came back positive. he is asymptomatic. No cough, no fever, normal CXR. He is medically stable awaiting SNF placement. I updated the sister with plan of care. 02/16/2020. Awaiting placement. 02/17/2020 Patient with acute systemic stroke, asymptomatic covid-19 infection. Repeat Covid-19 test negative. He is medically stable, awaiting placement. 02/18/2020 Patient with acute systemic stroke, asymptomatic covid-19 infection. Repeat Covid-19 test negative. He is medically stable, awaiting placement. Total time spent on discharge, 40 mins Disposition: [id number]/[place]-[address] [facility] Core Measure Documentation - Palliative Care Palliative Care/ Comfort Measures: Not Applicable - Core Measures Any of the following diagnoses?: none Exam - Constitutional Vitals: Temp Pulse Resp BP Pulse Ox 97.8 F 72 16 152/87 96 02/18/20 03:28 02/18/20 03:28 02/18/20 03:28 02/18/20 03:28 02/18/20 07:08 Plan Activity: advance as tolerated Diet: low fat, low cholesterol, low salt, diabetic, other (Mechanical soft diet) Follow up with: SUDHIR CLINTON MD [Primary Care Provider] - 7 Days Prescriptions: amLODIPine 10 mg PO DAILY #30 tab Aspirin EC [Ecotrin] 325 mg PO QDAY #30 tablet. metFORMIN [Glucophage] 500 mg PO DAILY #30 tab AtorvaSTATin [Lipitor] 40 mg PO QHS #30 tab Naphazoline/Phenira 0.025/0.3% [Visine-A] 2 drops OU Q6H PRN #1 bottle PRN Reason: dry eyes, red eyes lisinopriL [Zestril TAB] 40 mg PO QDAY #30 tablet
[2020-02-18 14:47] VITALS: BP 154/79
== END 2020-02-18 18:05 | disposition home health service (06) | DRG 64 ==
LOC: ED 22:50 → 2B-ACE 01-30 00:26 → OBSVTOIN 01-31 11:38 → 4A 02-01 20:37 → IMCU 02-04 18:33 → 4A 02-16 21:56
PROVIDERS: ADMIT Internal Medicine; ATTEND Internal Medicine
DX: I63.9 Cerebral infarction, unspecified (principal); U07.1 COVID-19; I16.0 Hypertensive urgency; I10 Essential (primary) hypertension; F14.20 Cocaine dependence, uncomplicated; E87.6 Hypokalemia; R29.702 NIHSS score 2; E11.65 Type 2 diabetes mellitus with hyperglycemia; Z87.442 Personal history of urinary calculi; Z79.899 Other long term (current) drug therapy; Z90.49 Acquired absence of other specified parts of digestive tract
CPT/HCPCS: 36415; 70450; 70551; 71045; 80048; 80061; 80307; 82728; 82962; 83615; 83735; 84132; 84145; 84484; 85025; 85027; 85379; 85610; 85670; 85730; 86140; 87641; 90732; 93005; 93306; 93880; G0378; A9270-GY; J0360; J1630; J1815; J2405; J3480; U0003; U0003-CS

== ENCOUNTER 2022-01-10 16:16 | Emergency (ER) | payer MEDICAID ==
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
[2022-01-10] MEDS ORDERED: LORazepam 2 MG/ML VIAL IM ONE (19:31)
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
--- NOTE | 2022-01-12 16:04 | Emergency Department Report ---
Blank Doc - Documentation Documentation: Mr Boswell is a patient that was initially admitted to the ED with mental queta luation and clearance. Pt was evaluated by the psychiatrist and deemed to be discharged home yesterday 01/11/22. However patient bedside nurse called his senior living and was told that patient will not be accepted back to senior living. fish farm manager is currently involved. Pt did not have any complaints today. Will continue to monitor patient will in the ED.
--- NOTE | 2022-01-13 12:18 | Event Note ---
Date: 01/13/22 S: No events reported overnight O: Vital Signs - 8 hr 01/13/22 14:25 Temperature 98.2 F Pulse Rate 62 Respiratory 16 Rate Blood Pressure 173/88 [Right] O2 Sat by Pulse 97 Oximetry A: MH eval now needing placement P: Awaiting placement by case management as residential will not take the patie nt back.
[2022-01-13] MEDS: diphenhydrAMINE 50 MG/ML VIAL IM PRN (14:36)
[2022-01-13] MEDS: LORazepam 2 MG/ML VIAL IM PRN (14:36)
--- NOTE | 2022-01-15 12:19 | Event Note ---
Date: 01/15/22 Patient is seen and examined. He is resting comfortably in chair. Blood pressure is 150/85, heart rate 60 bpm, saturating at 98% on room air, re spirations 20/min. Care team endorses no acute issues. Have requested that nursing team reconcile home medications. Currently awaiting disposition as per social work. Prior records are reviewed a nd appreciated. Vital Signs 01/10/22 01/11/22 01/11/22 16:31 02:32 07:50 Temperature 98.0 F 97.4 F L 97.7 F Pulse Rate 68 87 66 Respiratory 18 18 16 Rate Blood Pressure Blood Pressure 106/90 190/104 178/88 [Right] O2 Sat by Pulse 98 98 98 Oximetry 01/11/22 01/11/22 01/11/22 09:17 09:31 09:45 Temperature 97.6 F Pulse Rate 62 59 L Respiratory 12 14 9 L Rate Blood Pressure 170/89 170/89 Blood Pressure [Right] O2 Sat by Pulse 97 98 Oximetry 01/11/22 01/11/22 01/11/22 10:01 10:15 17:27 Temperature 97.7 F Pulse Rate 58 L 62 59 L Respiratory 8 L 12 18 Rate Blood Pressure 170/90 170/90 Blood Pressure 174/89 [Right] O2 Sat by Pulse 96 92 96 Oximetry 01/11/22 01/12/22 01/12/22 20:50 02:42 22:30 Temperature 97.7 F 98.7 F 98.7 F Pulse Rate 59 L 53 L 62 Respiratory 16 16 16 Rate Blood Pressure Blood Pressure 117/75 168/77 162/72 [Right] O2 Sat by Pulse 97 92 98 Oximetry 01/13/22 01/13/22 01/13/22 05:19 14:25 19:00 Temperature 98.2 F Pulse Rate 62 Respiratory 16 Rate Blood Pressure Blood Pressure 173/88 [Right] O2 Sat by Pulse 99 97 100 Oximetry 01/14/22 01/14/22 01/14/22 10:00 10:42 19:00 Temperature 98.2 F Pulse Rate 70 Respiratory Rate Blood Pressure Blood Pressure 153/88 [Right] O2 Sat by Pulse 95 95 100 Oximetry 01/15/22 03:34 Temperature 97.4 F L Pulse Rate 81 Respiratory 16 Rate Blood Pressure Blood Pressure 145/86 [Right] O2 Sat by Pulse 95 Oximetry Lab Results 01/11/22 Range/Units 10:43 SARS-CoV-2 (PCR) Negative (Negative)
--- NOTE | 2022-01-16 12:14 | Emergency Department Report ---
Blank Doc - Documentation Documentation: 56-year-old male awaiting [facility] placement. Vital signs reviewed and un remarkable. Awaiting further case management consultation. Awaiting med reconciliation
[2022-01-16] MEDS ORDERED: cloNIDine 0.1 MG TAB PO ONE (21:20)
[2022-01-16] MEDS ORDERED: LISINOPRIL 20 MG TAB PO SCH (22:00)
[2022-01-17] MEDS ORDERED: LORazepam 2 MG/ML VIAL ONE (22:04)
[2022-01-17] MEDS: LORazepam 2 MG/ML VIAL IM PRN (22:12)
[2022-01-18] MEDS ORDERED: HALOPERIDOL LACTATE 5 MG/1 ML INJ ONE (16:22)
[2022-01-18] MEDS: ZOLPIDEM 5 MG TAB PO PRN (21:51)
[2022-01-18] MEDS: amLODIPine 5 MG TAB PO SCH (21:51)
[2022-01-19] MEDS: amLODIPine 5 MG TAB PO SCH (10:43)
[2022-01-19] MEDS ORDERED: HALOPERIDOL LACTATE 5 MG/1 ML INJ IM ONE (21:30)
[2022-01-20] MEDS ORDERED: HALOPERIDOL LACTATE 5 MG/1 ML INJ ONE (00:43)
[2022-01-20] MEDS ORDERED: HALOPERIDOL LACTATE 5 MG/1 ML INJ IM ONE (00:45)
--- NOTE | 2022-01-20 11:38 | Emergency Department Report ---
Blank Doc - Documentation Documentation: 56-year-old male with prolonged ED stay while awaiting appropriate placement and disposition as per case management. Patient currently eating tolerating p.o. meds as ordered. Vital signs reviewed. Current progress as per case management note below [facility]O [facility] 1965 [id number]19[facility] 16:55 - Electrophysiology Nurse Practitioner [facility]: [id number] : 1965 Patient Age: 56 SW faxed Release of Information to [facility] to obtain income information for placement for patient. PLAN A; SW continuing to refer patient to nursing homes PLAN B: SW connecting with personal half-way to obtain placement for patient. Barriers: Patient history of aggression Patient income is unknown but important for placement into facility or personal half-way. Ms. Tipton- Willing to accept patient if she has his financial information Mr. Nj- Continuing to search for placement but will need financial information Initialized on 01/19/22 16:55 - END OF NOTE
[2022-01-20] MEDS: amLODIPine 5 MG TAB PO SCH (19:04)
[2022-01-20] MEDS: ZOLPIDEM 5 MG TAB PO PRN (21:11)
[2022-01-21] MEDS: amLODIPine 5 MG TAB PO SCH (09:52)
--- NOTE | 2022-01-21 11:48 | Emergency Department Report ---
Blank Doc - Documentation Documentation: Chart reviewed Patient still awaiting placement. Vital signs reviewed. There is not any new Case management update regarding placement. Patient is tolerating p.o. meds
[2022-01-21] MEDS: ZOLPIDEM 5 MG TAB PO PRN (23:38)
[2022-01-21] MEDS ORDERED: LORazepam 2 MG/ML VIAL ONE (23:44)
[2022-01-21] MEDS: LORazepam 2 MG/ML VIAL IM PRN (23:48)
[2022-01-22] MEDS ORDERED: diphenhydrAMINE 50 MG/ML VIAL ONE ×2 (01:58→19:08)
[2022-01-22] MEDS: diphenhydrAMINE 50 MG/ML VIAL IM PRN ×2 (02:08→19:16)
--- NOTE | 2022-01-22 12:44 | Emergency Department Report ---
Blank Doc - Documentation Documentation: 56-year-old male still awaiting case management placement. No new updates since case management note on January 19.
[2022-01-22] MEDS: amLODIPine 5 MG TAB PO SCH (17:47)
[2022-01-22] MEDS ORDERED: LORazepam 2 MG/ML VIAL ONE (19:08)
[2022-01-22] MEDS: LORazepam 2 MG/ML VIAL IM PRN (19:16)
--- NOTE | 2022-01-23 12:00 | Emergency Department Report ---
Blank Doc - Documentation Documentation: S: No events reported overnight O: Vital Signs - 24 hr 01/22/22 01/23/22 01/23/22 18:21 07:37 08:12 Temperature 97.4 F L 97.4 F L 97.0 F L Pulse Rate 60 100 H 75 Respiratory 16 18 18 Rate Blood Pressure 157/85 135/87 148/83 [Left] O2 Sat by Pulse 97 100 98 Oximetry A/P: Awaiting placement by case management
[2022-01-24] MEDS ORDERED: LORazepam 2 MG/ML VIAL ONE (01:33)
[2022-01-24] MEDS: ZOLPIDEM 5 MG TAB PO PRN ×2 (01:42→23:40)
[2022-01-24] MEDS: LORazepam 2 MG/ML VIAL IM PRN (01:43)
[2022-01-24] MEDS: amLODIPine 5 MG TAB PO SCH (11:11)
--- NOTE | 2022-01-24 13:42 | Event Note ---
Date: 01/24/22 Patient seen and examined. Resting comfortably on stretcher. No acute distress. Nursing team reports no acute issues. Awaiting appropriate dis position as per case management/social work. Does not appear to have a medical decompensation present at the moment Vital Signs 01/10/22 01/11/22 01/11/22 16:31 02:32 07:50 Temperature 98.0 F 97.4 F L 97.7 F Pulse Rate 68 87 66 Respiratory 18 18 16 Rate Blood Pressure Blood Pressure [Left] Blood Pressure 106/90 190/104 178/88 [Right] O2 Sat by Pulse 98 98 98 Oximetry 01/11/22 01/11/22 01/11/22 09:17 09:31 09:45 Temperature 97.6 F Pulse Rate 62 59 L Respiratory 12 14 9 L Rate Blood Pressure 170/89 170/89 Blood Pressure [Left] Blood Pressure [Right] O2 Sat by Pulse 97 98 Oximetry 01/11/22 01/11/22 01/11/22 10:01 10:15 17:27 Temperature 97.7 F Pulse Rate 58 L 62 59 L Respiratory 8 L 12 18 Rate Blood Pressure 170/90 170/90 Blood Pressure [Left] Blood Pressure 174/89 [Right] O2 Sat by Pulse 96 92 96 Oximetry 01/11/22 01/12/22 01/12/22 20:50 02:42 22:30 Temperature 97.7 F 98.7 F 98.7 F Pulse Rate 59 L 53 L 62 Respiratory 16 16 16 Rate Blood Pressure Blood Pressure [Left] Blood Pressure 117/75 168/77 162/72 [Right] O2 Sat by Pulse 97 92 98 Oximetry 01/13/22 01/13/22 01/13/22 05:19 14:25 19:00 Temperature 98.2 F Pulse Rate 62 Respiratory 16 Rate Blood Pressure Blood Pressure [Left] Blood Pressure 173/88 [Right] O2 Sat by Pulse 99 97 100 Oximetry 01/14/22 01/14/22 01/14/22 10:00 10:42 19:00 Temperature 98.2 F Pulse Rate 70 Respiratory Rate Blood Pressure Blood Pressure [Left] Blood Pressure 153/88 [Right] O2 Sat by Pulse 95 95 100 Oximetry 01/15/22 01/15/22 01/16/22 03:34 19:00 21:15 Temperature 97.4 F L 98 F 98.4 F Pulse Rate 81 82 52 L Respiratory 16 18 18 Rate Blood Pressure Blood Pressure [Left] Blood Pressure 145/86 154/88 175/85 [Right] O2 Sat by Pulse 95 100 96 Oximetry 01/16/22 01/17/22 01/17/22 21:53 03:15 11:50 Temperature 98.2 F Pulse Rate 51 L 63 100 H Respiratory 18 18 Rate Blood Pressure 175/85 Blood Pressure 154/75 [Left] Blood Pressure 164/93 [Right] O2 Sat by Pulse 96 97 Oximetry 01/17/22 01/18/22 01/18/22 20:00 02:30 21:35 Temperature 97.7 F 97.8 F 97.6 F Pulse Rate 54 L 78 52 L Respiratory 16 16 18 Rate Blood Pressure Blood Pressure 158/54 145/80 172/80 [Left] Blood Pressure [Right] O2 Sat by Pulse 95 96 98 Oximetry 01/18/22 01/19/22 01/19/22 21:51 01:55 06:12 Temperature 97.8 F Pulse Rate 52 L 109 H 61 Respiratory 17 18 Rate Blood Pressure 172/80 Blood Pressure 157/70 [Left] Blood Pressure [Right] O2 Sat by Pulse 100 100 Oximetry 01/19/22 01/19/22 01/20/22 08:59 10:43 19:03 Temperature Pulse Rate 102 H 86 Respiratory 16 Rate Blood Pressure 171/86 Blood Pressure 166/88 [Left] Blood Pressure [Right] O2 Sat by Pulse 99 100 Oximetry 01/20/22 01/20/22 01/20/22 19:58 20:00 20:15 Temperature Pulse Rate Respiratory Rate Blood Pressure 148/90 148/90 Blood Pressure [Left] Blood Pressure [Right] O2 Sat by Pulse 98 97 98 Oximetry 01/20/22 01/20/22 01/20/22 20:31 20:45 21:01 Temperature Pulse Rate Respiratory Rate Blood Pressure 160/79 160/79 160/79 Blood Pressure [Left] Blood Pressure [Right] O2 Sat by Pulse 98 97 97 Oximetry 01/20/22 01/20/22 01/21/22 21:15 21:31 08:00 Temperature 97.5 F L Pulse Rate 90 Respiratory 18 Rate Blood Pressure 134/91 134/91 Blood Pressure 135/78 [Left] Blood Pressure [Right] O2 Sat by Pulse 97 97 97 Oximetry 01/21/22 01/21/22 01/22/22 09:52 10:00 18:21 Temperature 98.1 F 97.4 F L Pulse Rate 61 91 H 60 Respiratory 16 16 16 Rate Blood Pressure 125/71 Blood Pressure 125/71 157/71 157/85 [Left] Blood Pressure [Right] O2 Sat by Pulse 97 99 97 Oximetry 01/23/22 01/23/22 07:37 08:12 Temperature 97.4 F L 97.0 F L Pulse Rate 100 H 75 Respiratory 18 18 Rate Blood Pressure Blood Pressure 135/87 148/83 [Left] Blood Pressure [Right] O2 Sat by Pulse 100 98 Oximetry
[2022-01-25] MEDS ORDERED: HALOPERIDOL LACTATE 5 MG/1 ML INJ ONE ×2 (02:26→22:42)
[2022-01-25] MEDS ORDERED: HALOPERIDOL LACTATE 5 MG/1 ML INJ IM ONE (02:48)
[2022-01-25] MEDS: amLODIPine 5 MG TAB PO SCH (11:18)
[2022-01-25] MEDS: ZOLPIDEM 5 MG TAB PO PRN (19:42)
[2022-01-25] MEDS ORDERED: diphenhydrAMINE 50 MG/ML VIAL ONE (22:43)
[2022-01-25] MEDS: diphenhydrAMINE 50 MG/ML VIAL IM PRN (22:47)
[2022-01-27] MEDS: LORazepam 2 MG/ML VIAL IM PRN (01:20)
[2022-01-27] MEDS ORDERED: LORazepam 2 MG/ML VIAL ONE (01:20)
[2022-01-27] MEDS ORDERED: diphenhydrAMINE 50 MG/ML VIAL ONE (01:20)
[2022-01-27] MEDS ORDERED: HALOPERIDOL LACTATE 5 MG/1 ML INJ ONE ×2 (01:20→04:05)
[2022-01-27] MEDS: ZOLPIDEM 5 MG TAB PO PRN ×2 (01:21→20:06)
[2022-01-27] MEDS: diphenhydrAMINE 50 MG/ML VIAL IM PRN (01:21)
[2022-01-27] MEDS ORDERED: HALOPERIDOL LACTATE 5 MG/1 ML INJ IM ONE (04:04)
--- NOTE | 2022-01-27 10:11 | Event Note ---
Date: 01/27/22 Resting comfortably in stretcher. No acute distress. Vital signs unremarkable. Cooperative this morning. Awaiting case management/social disposition placement. Does not appear to be medically decompensated at this time.
[2022-01-27] MEDS: amLODIPine 5 MG TAB PO SCH (11:07)
[2022-01-28] MEDS ORDERED: LORazepam 2 MG/ML VIAL ONE ×2 (00:45→20:07)
[2022-01-28] MEDS: LORazepam 2 MG/ML VIAL IM PRN ×2 (00:46→20:33)
--- NOTE | 2022-01-28 14:10 | Event Note ---
Date: 01/28/22 Patient seen and examined. No acute distress. Awaiting case management to arrange safe disposition. Vital signs unremarkable. He has not made any acute complaints to myself or to nursing staff this morning Vital Signs 01/10/22 01/11/22 01/11/22 16:31 02:32 07:50 Temperature 98.0 F 97.4 F L 97.7 F Pulse Rate 68 87 66 Respiratory 18 18 16 Rate Blood Pressure Blood Pressure [Left] Blood Pressure 106/90 190/104 178/88 [Right] O2 Sat by Pulse 98 98 98 Oximetry 01/11/22 01/11/22 01/11/22 09:17 09:31 09:45 Temperature 97.6 F Pulse Rate 62 59 L Respiratory 12 14 9 L Rate Blood Pressure 170/89 170/89 Blood Pressure [Left] Blood Pressure [Right] O2 Sat by Pulse 97 98 Oximetry 01/11/22 01/11/22 01/11/22 10:01 10:15 17:27 Temperature 97.7 F Pulse Rate 58 L 62 59 L Respiratory 8 L 12 18 Rate Blood Pressure 170/90 170/90 Blood Pressure [Left] Blood Pressure 174/89 [Right] O2 Sat by Pulse 96 92 96 Oximetry 01/11/22 01/12/22 01/12/22 20:50 02:42 22:30 Temperature 97.7 F 98.7 F 98.7 F Pulse Rate 59 L 53 L 62 Respiratory 16 16 16 Rate Blood Pressure Blood Pressure [Left] Blood Pressure 117/75 168/77 162/72 [Right] O2 Sat by Pulse 97 92 98 Oximetry 01/13/22 01/13/22 01/13/22 05:19 14:25 19:00 Temperature 98.2 F Pulse Rate 62 Respiratory 16 Rate Blood Pressure Blood Pressure [Left] Blood Pressure 173/88 [Right] O2 Sat by Pulse 99 97 100 Oximetry 01/14/22 01/14/22 01/14/22 10:00 10:42 19:00 Temperature 98.2 F Pulse Rate 70 Respiratory Rate Blood Pressure Blood Pressure [Left] Blood Pressure 153/88 [Right] O2 Sat by Pulse 95 95 100 Oximetry 01/15/22 01/15/22 01/16/22 03:34 19:00 21:15 Temperature 97.4 F L 98 F 98.4 F Pulse Rate 81 82 52 L Respiratory 16 18 18 Rate Blood Pressure Blood Pressure [Left] Blood Pressure 145/86 154/88 175/85 [Right] O2 Sat by Pulse 95 100 96 Oximetry 01/16/22 01/17/22 01/17/22 21:53 03:15 11:50 Temperature 98.2 F Pulse Rate 51 L 63 100 H Respiratory 18 18 Rate Blood Pressure 175/85 Blood Pressure 154/75 [Left] Blood Pressure 164/93 [Right] O2 Sat by Pulse 96 97 Oximetry 01/17/22 01/18/22 01/18/22 20:00 02:30 21:35 Temperature 97.7 F 97.8 F 97.6 F Pulse Rate 54 L 78 52 L Respiratory 16 16 18 Rate Blood Pressure Blood Pressure 158/54 145/80 172/80 [Left] Blood Pressure [Right] O2 Sat by Pulse 95 96 98 Oximetry 01/18/22 01/19/22 01/19/22 21:51 01:55 06:12 Temperature 97.8 F Pulse Rate 52 L 109 H 61 Respiratory 17 18 Rate Blood Pressure 172/80 Blood Pressure 157/70 [Left] Blood Pressure [Right] O2 Sat by Pulse 100 100 Oximetry 01/19/22 01/19/22 01/20/22 08:59 10:43 19:03 Temperature Pulse Rate 102 H 86 Respiratory 16 Rate Blood Pressure 171/86 Blood Pressure 166/88 [Left] Blood Pressure [Right] O2 Sat by Pulse 99 100 Oximetry 01/20/22 01/20/22 01/20/22 19:58 20:00 20:15 Temperature Pulse Rate Respiratory Rate Blood Pressure 148/90 148/90 Blood Pressure [Left] Blood Pressure [Right] O2 Sat by Pulse 98 97 98 Oximetry 01/20/22 01/20/22 01/20/22 20:31 20:45 21:01 Temperature Pulse Rate Respiratory Rate Blood Pressure 160/79 160/79 160/79 Blood Pressure [Left] Blood Pressure [Right] O2 Sat by Pulse 98 97 97 Oximetry 01/20/22 01/20/22 01/20/22 21:15 21:31 21:41 Temperature Pulse Rate Respiratory Rate Blood Pressure 134/91 134/91 134/91 Blood Pressure [Left] Blood Pressure [Right] O2 Sat by Pulse 97 97 96 Oximetry 01/20/22 01/20/22 01/21/22 21:45 22:01 08:00 Temperature 97.5 F L Pulse Rate 90 Respiratory 18 Rate Blood Pressure 134/91 134/91 Blood Pressure 135/78 [Left] Blood Pressure [Right] O2 Sat by Pulse 97 96 97 Oximetry 01/21/22 01/21/22 01/21/22 09:43 09:45 09:52 Temperature Pulse Rate 61 Respiratory 16 Rate Blood Pressure 134/91 134/91 125/71 Blood Pressure 125/71 [Left] Blood Pressure [Right] O2 Sat by Pulse 96 96 97 Oximetry 01/21/22 01/22/22 01/23/22 10:00 18:21 07:37 Temperature 98.1 F 97.4 F L 97.4 F L Pulse Rate 91 H 60 100 H Respiratory 16 16 18 Rate Blood Pressure Blood Pressure 157/71 157/85 135/87 [Left] Blood Pressure [Right] O2 Sat by Pulse 99 97 100 Oximetry 01/23/22 01/24/22 01/24/22 08:12 08:00 15:47 Temperature 97.0 F L 98.7 F Pulse Rate 75 82 Respiratory 18 20 Rate Blood Pressure Blood Pressure 148/83 157/76 [Left] Blood Pressure [Right] O2 Sat by Pulse 98 99 98 Oximetry 01/24/22 01/25/22 01/25/22 18:58 08:38 11:27 Temperature 98.7 F 98.6 F Pulse Rate 75 89 Respiratory 18 Rate Blood Pressure Blood Pressure 183/90 177/89 [Left] Blood Pressure [Right] O2 Sat by Pulse 97 95 96 Oximetry 01/26/22 01/26/22 01/26/22 04:31 13:44 20:39 Temperature 97.9 F 97.2 F L Pulse Rate 72 54 L Respiratory 16 18 15 Rate Blood Pressure Blood Pressure 126/70 115/88 [Left] Blood Pressure [Right] O2 Sat by Pulse 100 97 100 Oximetry 01/27/22 01/27/22 01/27/22 06:22 11:07 20:01 Temperature 98.0 F Pulse Rate 66 57 L Respiratory 14 16 Rate Blood Pressure 122/78 Blood Pressure 121/71 174/84 [Left] Blood Pressure [Right] O2 Sat by Pulse 100 98 Oximetry 01/28/22 02:41 Temperature Pulse Rate 69 Respiratory 16 Rate Blood Pressure Blood Pressure 169/70 [Left] Blood Pressure [Right] O2 Sat by Pulse 98 Oximetry
[2022-01-28] MEDS ORDERED: diphenhydrAMINE 50 MG/ML VIAL ONE (20:07)
[2022-01-28] MEDS: diphenhydrAMINE 50 MG/ML VIAL IM PRN (20:32)
[2022-01-28] MEDS: ZOLPIDEM 5 MG TAB PO PRN (20:33)
[2022-01-29] MEDS ORDERED: diphenhydrAMINE 50 MG/ML VIAL ONE ×2 (02:54→12:13)
[2022-01-29] MEDS: diphenhydrAMINE 50 MG/ML VIAL IM PRN ×2 (02:57→12:17)
[2022-01-29] MEDS ORDERED: LORazepam 2 MG/ML VIAL ONE (06:12)
[2022-01-29] MEDS: LORazepam 2 MG/ML VIAL IM PRN (06:19)
[2022-01-29] MEDS: amLODIPine 5 MG TAB PO SCH ×2 (10:41→10:43)
[2022-01-29] MEDS: ZOLPIDEM 5 MG TAB PO PRN (10:42)
[2022-01-29] MEDS ORDERED: HALOPERIDOL LACTATE 5 MG/1 ML INJ IM ONE (15:56)
[2022-01-30] MEDS ORDERED: diphenhydrAMINE 50 MG/ML VIAL ONE (00:32)
[2022-01-30] MEDS ORDERED: LORazepam 2 MG/ML VIAL ONE (00:32)
[2022-01-30] MEDS: ZOLPIDEM 5 MG TAB PO PRN (00:48)
[2022-01-30] MEDS: diphenhydrAMINE 50 MG/ML VIAL IM PRN (00:48)
[2022-01-30] MEDS: LORazepam 2 MG/ML VIAL IM PRN (00:48)
[2022-01-30] MEDS ORDERED: HALOPERIDOL LACTATE 5 MG/1 ML INJ IM ONE ×2 (20:34→23:00)
[2022-01-31] MEDS ORDERED: LORazepam 2 MG/ML VIAL ONE (05:52)
[2022-01-31] MEDS: LORazepam 2 MG/ML VIAL IM PRN (05:59)
[2022-01-31] MEDS ORDERED: HALOPERIDOL LACTATE 5 MG/1 ML INJ ONE (22:58)
[2022-01-31 23:58] LABS: Bilirubin,Urine NEG (Negative); Blood,Urine NEG (Negative); Color,Urine Yellow (Yellow); Mucus,Urine 3+ /HPF; Protein,Urine <15 mg/dL mg/dL (Negative)
[2022-02-01] MEDS ORDERED: HALOPERIDOL LACTATE 5 MG/1 ML INJ IM ONE ×2 (05:39→22:37)
[2022-02-01] MEDS ORDERED: HALOPERIDOL LACTATE 5 MG/1 ML INJ ONE (22:31)
--- NOTE | 2022-02-02 12:59 | Event Note ---
Date: 02/02/22 Patient seen and examined. He is in no acute distress. Vital signs unremarkable. Nursing team reports no acute issues. Recent urinalysis not c onsistent with UTI. Pending case management placement.
--- NOTE | 2022-02-03 10:48 | XRay Report ---
CHEST 1 VIEW 02/03/2022 9:41 AM INDICATION / CLINICAL INFORMATION: placement. COMPARISON: 01/05/2022. FINDINGS: SUPPORT DEVICES: None. HEART / MEDIASTINUM: No significant abnormality. LUNGS / PLEURA: No significant pulmonary or pleural abnormality. No pneumothorax. ADDITIONAL FINDINGS: No significant additional findings. IMPRESSION: No acute abnormality. Signer Name: Kapil Gonzales MD Signed: 02/03/2022 10:44 AM Workstation Name: [id number]
--- NOTE | 2022-02-03 15:20 | Event Note ---
Date: 02/03/22 Patient is seen and examined. He is in no acute distress. A chest x-ray today was obtained as required for outpatient placement. It is unremarkable. A COVID swab was ordered for placement as per the requirements of potential receiving facility. Do not suspect acute COVID or acute decompensation at this time. This patient remains medically suitable for social disposition at this time. Nursing team reports no acute issues this evening
--- NOTE | 2022-02-03 22:09 | Cat Scan Report ---
CT HEAD WITHOUT CONTRAST INDICATION / CLINICAL INFORMATION: Change in behavior, difficulty swallowing. TECHNIQUE: All CT scans at this location are performed using CT dose reduction for ALARA by means of automated e xposure control. COMPARISON: Head CT 01/29/2020 FINDINGS: HEMORRHAGE: No evidence of intracranial hemorrhage or extra-axial fluid collection. EXTRA-AXIAL SPACES: Cortical sulci and sylvian fissures are enlarged reflecting a degree of parenchym al volume loss which is greater than expected for the patient's age of 56 years. Basilar cisterns hav e an unremarkable appearance. VENTRICULAR SYSTEM: The third and lateral ventricles are enlarged out of proportion to the cortical s ulci. This probably reflects the presence of central greater than cortical atrophy. CEREBRAL PARENCHYMA: Periventricular and deep white matter lucency is observed. This is probably seco ndary to microvascular ischemic change. There is no indication of recent infarction. There is evidenc e of several remote small deep infarctions in the torres radiata and centrum semiovale of both cerebr al hemispheres. Similar findings are seen in a bilateral gangliocapsular distribution. MIDLINE SHIFT OR HERNIATION: There is no mass effect. CEREBELLUM / BRAINSTEM: There is evidence of at least 2 small pontine infarctions. Brainstem has an o therwise unremarkable appearance. An area of decreased brain parenchymal attenuation is seen in the l eft middle cerebral peduncle suspicious for remote infarction in this location. MIDLINE STRUCTURES:No abnormalities of the pituitary gland or pineal region are observed INTRACRANIAL VESSELS:Calcified atherosclerotic plaque is present along the course of the cavernous se gments of both internal carotid arteries. Similar findings are seen at the distal vertebral arteries. CRANIOCERVICAL JUNCTION:No abnormality ORBITS: visualized portions of the orbits have an unremarkable appearance. SOFT TISSUES of HEAD: No significant abnormality. CALVARIUM: Evaluation of bone windows reveals no abnormalities. PARANASAL SINUSES / MASTOID AIR CELLS: Paranasal sinuses are free from inflammatory mucosal disease. Mastoid air cells are normally pneumatized. IMPRESSION: 1. Central greater than cortical parenchymal volume loss and microvascular ischemic change. 2. Multiple remote small deep infarctions in a bilateral gangliocapsular region and white matter of b oth cerebral hemispheres. 3. At least 2 small deep pontine infarctions are identified. In addition there is evidence of remote infarction involving the left middle cerebral peduncle. 3. Similar findings were present on previous study. No acute intracranial abnormalities are identifie d. Signer Name: Brenden Rodney MD Signed: 02/03/2022 10:04 PM Workstation Name: [id number]
[2022-02-03 23:18] LABS: Basophils # (Auto) 0.1 K/mm3 (0.0-0.1); Basophils % (Auto) 1.1 % (0.0-1.8); Eosinophils # (Auto) 0.1 K/mm3 (0.0-0.4); Eosinophils % (Auto) 1.3 % (0.0-4.3); Hematocrit 39.3 % (35.5-45.6); Hemoglobin 13.6 gm/dl (11.8-15.2); Lymphocytes # (Auto) 2.8 K/mm3 (1.2-5.4); Lymphocytes % (Auto) 29.6 % (13.4-35.0); Mean Corpuscular HGB Conc 35 % (32-34); Mean Corpuscular Volume 88 fl (84-94); Monocytes % (Auto) 10.3 % (0.0-7.3); Platelet Count 272 K/mm3 (140-440); Red Blood Count 4.47 M/mm3 (3.65-5.03); Red Cell Distribution Width 14.5 % (13.2-15.2)
[2022-02-03 23:43] LABS: BUN/Creatinine Ratio 22; Blood Urea Nitrogen 20 mg/dL (9-20); Calcium 9.4 mg/dL (8.4-10.2); Hemolysis Index 9
[2022-02-04] MEDS: amLODIPine 5 MG TAB PO SCH (10:17)
--- NOTE | 2022-02-04 13:19 | Event Note ---
Date: 02/04/22 Mr Guerrero seen and examined this morning. He continue to have problem swallowing even though evaluation so far has been negative for likely CVA. CT head done did not show any acute changes from previous imaging. Will go ahead and try a puree diet and revaluate this patient. If still unable to swallow will consult GI for likely EGD for further evaluation and treatment. 17:45 On my reevaluation with Mr Dinero i was able to meet with his Sister and other family member. Who informed my that his in ability to swallow started when he was eating ham burger and have had several bites and reports choking. And he has not been able to swallow food or any fluid since then. Will go ahead and try glucagon and tried some liquid afterward and if still persisted will consult GI for further evaluation with EGD and treatment. 19:20 PM-- Dr Doan returned my call and plan to scope patient in the morning. He agreed that it could be esophageal obstruction. Pt is not in any acute distress so will go ahead and start ivf ns 1L maintenance and keep pt NPO.
[2022-02-04] MEDS ORDERED: GLUCAGON (HUMAN RECOMBINANT) 1 MG/ML INJ IV ONE (18:01)
[2022-02-04] MEDS ORDERED: SODIUM CHLORIDE 0.9% 1000 ML 1,000 ML IV ONE (19:28)
[2022-02-05] MEDS ORDERED: SODIUM CHLORIDE 0.9% 1000 ML 1,000 ML ONE (10:00)
--- NOTE | 2022-02-05 10:26 | Anesthesia Consultation ---
Anesthesia Consult and Med Hx Date of service: 02/05/22 - Airway Anesthetic Teeth Evaluation: Good, Partials ROM Head & Neck: Adequate Mental/Hyoid Distance: Adequate Mallampati Class: Class II Intubation Access Assessment: Probably Good - Pulmonary Exam CTA: Yes - Cardiac Exam Cardiac Exam: RRR - Pre-Operative Health Status ASA Pre-Surgery Classification: ASA3 Proposed Anesthetic Plan: MAC - Pulmonary Hx Asthma: No Hx Pneumonia: No - Cardiovascular System Hx Hypertension: Yes - Central Nervous System CVA: Yes (ataxia, dysarthia, facial weakness) Hx Psychiatric Problems: Yes (depression) - Endocrine Hx Renal Disease: No (Hx of kidney stones) Hx Insulin Dependent Diabetes: Yes Hx Thyroid Disease: No - Hematic Hx Anemia: No Hx Sickle Cell Disease: No - Other Systems Hx Alcohol Use: No Hx Substance Use: No Hx Cancer: No Hx Obesity: No - Additional Comments Anesthesia Medical History Comments: no hx of anesthetic complications
[2022-02-05] MEDS ORDERED: propofoL 200 MG/20 ML VIAL IV ONE ×2 (10:28)
--- NOTE | 2022-02-05 10:37 | Anesthesia Day of Surgery ---
Anesthesia Day of Surgery - Day of Surgery Patient Examined: Yes Patient H&P Reviewed: Yes Patient is NPO: Yes
[2022-02-05] MEDS: amLODIPine 5 MG TAB PO SCH (10:45)
--- NOTE | 2022-02-05 11:13 | Gastroenterology Consultation ---
History of Present Illness - Reason for Consult Consult date: 02/05/22 Dysphagia Requesting physician: MILEY CASTREJON - History of Present Illness Patient is unable to provide a history, history obtained from chart staff and patient's sister whom I spoke with on the phone at [phone] The patient was [facility] last month and is awaiting placement Apparently patient had a hamburger in the ER and has not been able to eat since Patient unable to provide any further history - Past Medical History Hx Hypertension: Yes Hx CVA: Yes (L-sided) Hx Diabetes: Yes Hx GERD: Yes Hx Kidney Stones: Yes Hx Asthma: No Additional medical history: Depression, ataxia, dysarthria, hypokalemia, hyperlipidemia, facial weakness - Surgical History Hx Cholecystectomy: Yes Hx Appendectomy: Yes - Social History Smoking Status: Never Smoker Substance Use Type: None Obtained/updated/reviewed patient's current medications Medications and Allergies Allergies Allergy/AdvReac Type Severity Reaction Status Date / Time No Known Allergies Allergy Verified 01/25/22 11:28 Home Medications Medication Instructions Recorded Confirmed Last Taken Type Atorvastatin [Lipitor] 40 mg PO QDAY 01/30/20 01/30/20 Unknown History Metformin HCl [metFORMIN] 1,000 mg PO QDAY 01/30/20 01/30/20 Unknown History amLODIPine 10 mg PO DAILY 01/30/20 01/30/20 Unknown History lisinopriL [Zestril TAB] 40 mg PO QDAY 01/30/20 01/30/20 Unknown History Acetaminophen [Acetaminophen 650 mg NV Q4H PRN supp.rect 02/12/20 Unknown Rx SUPPOS] Aspirin 325 mg PO QDAY tablet 02/12/20 Unknown Rx AtorvaSTATin [Lipitor] 40 mg PO QDAY tablet 02/12/20 Unknown Rx Insulin Regular, Human [HumuLIN R] 0 units SUB-Q ACHS units 02/12/20 Unknown Rx Melatonin [Melatonin 5MG TAB] 5 mg PO QHS PRN tablet 02/12/20 Unknown Rx Naphazoline/Phenira 0.025/0.3% 2 drops OU Q6H PRN bottle 02/12/20 Unknown Rx [Visine-A] [place]-3 Fatty Acids/Fish Oil [Fish 2,000 mg PO BID capsule 02/12/20 Unknown Rx Oil] Zolpidem [Ambien] 5 mg PO QHS PRN tablet 02/12/20 Unknown Rx lisinopriL [Zestril TAB] 40 mg PO QDAY tablet 02/12/20 Unknown Rx Aspirin EC [Ecotrin] 325 mg PO QDAY #30 tablet.dr 02/18/20 Unknown Rx AtorvaSTATin [Lipitor] 40 mg PO QHS #30 tab 02/18/20 Unknown Rx Naphazoline/Phenira 0.025/0.3% 2 drops OU Q6H PRN #1 bottle 02/18/20 Unknown Rx [Visine-A] amLODIPine 10 mg PO DAILY #30 tab 02/18/20 Unknown Rx lisinopriL [Zestril TAB] 40 mg PO QDAY #30 tablet 02/18/20 Unknown Rx metFORMIN [Glucophage] 500 mg PO DAILY #30 tab 02/18/20 Unknown Rx Active Meds: Active Medications Amlodipine Besylate (Amlodipine 5 Mg Tab) 10 mg PO QDAY MATEUSZ Last Admin: 02/04/22 10:17 Dose: Not Given Diphenhydramine HCl (Diphenhydramine 50 Mg/Ml Vial) 50 mg IM Q6H PRN PRN Reason: Agitation Last Admin: 01/30/22 00:48 Dose: 50 mg Lisinopril (Lisinopril 20 Mg Tab) 20 mg PO ONCE MATEUSZ Lorazepam (Lorazepam 2 Mg/Ml Vial) 2 mg IM Q8H PRN PRN Reason: Agitation Last Admin: 01/31/22 05:59 Dose: 2 mg Zolpidem Tartrate (Zolpidem 5 Mg Tab) 5 mg PO QHS PRN PRN Reason: Insomnia Last Admin: 01/30/22 00:48 Dose: 5 mg Review of Systems - Review of Systems ROS unobtainable: due to mental status Exam - Constitutional Vital Signs: Temp Pulse Resp BP Pulse Ox 99.3 F 56 L 16 170/86 95 02/04/22 08:57 02/04/22 08:57 02/04/22 08:57 02/04/22 08:57 02/04/22 08:57 General appearance: other (Bitemporal wasting) - EENT Eyes: other (Significant erythema left eye) ENT: other (Thick white secretions in the mouth no thrush appreciated) - Neck Neck: supple - Respiratory Respiratory effort: normal - Cardiovascular Rhythm: regular - Gastrointestinal General gastrointestinal: Present: soft - Integumentary Integumentary: Present: dry - Neurologic Neurological: disoriented - Psychiatric Psychiatric: other (Unable to assess due to patient's mental status) - Labs CBC & Chem 7: 02/03/22 22:42 02/03/22 22:42 Lab Results: Laboratory Results - last 24 hr 02/05/22 09:44 SARS-CoV-2 (PCR) Negative Assessment and Plan Clinical presentation concerning for possible dysphagia/esophageal obstruction therefore will proceed with same-day urgent upper endoscopy. Differential diagnosis includes rings webs mass for esophageal obstruction. Remainder of differential diagnosis includes non-GI source for lack of eating and failure to thrive - Patient Problems (1) Dysphagia Status: Acute (2) Failure to thrive Status: Acute
--- NOTE | 2022-02-05 11:19 | Operative Report ---
Operative Report Operative Report: DOS: 02/05/22 SURGEON: Quintin Noel MD EGD WITH BIOPSY REPORT PREOPERATIVE DIAGNOSIS and POSTOPERATIVE DIAGNOSIS: Dysphagia ESTIMATED BLOOD LOSS: Minimal DESCRIPTION OF PROCEDURE: A high-resolution EGD scope was passed through the oropharynx, esophagus, stomach, and second portion of duodenum. The scope was carefully withdrawn. Retroflexion was performed in the stomach. At the end of the procedure, the scope was cleaned using normal technique. Vital signs monitored continuously throughout. SEDATION: Provided by Anesthesiology Services. COMPLICATIONS: None. FINDINGS: * No gross lesions entire examined duodenum * Moderate gastritis throughout the entire stomach with erythema and nodularity suspicious for possible H. pylori gastritis. Biopsies were taken to rule out H. Pylori infection. A total of 5 biopsies were taken, 2 from the antrum, 1 from the incisura, 2 from the body. * GE junction located 40 cm from incisors * 2 cm hiatal hernia * Possible C 1M2 Ornelas's esophagus. Random four-quadrant biopsies obtained using cold forceps rule out Ornelas's esophagus * Remainder of exam unremarkable RECOMMENDATIONS: * No source for dysphagia or inability to eat on upper endoscopy, therefore suspect non-GI primary source for the patient's symptoms such as neurologic psychiatric etc. * I will start the patient on once daily PPI, otherwise no further interventions indicated from GI perspective therefore GI will sign off please call us back if we can be of any further assistance * I tried calling the patient's sister to inform her of the test results however she did not apple picking supervisor and the phone call just went to voicemail after ringing so I was unable to relate to her the test results
--- NOTE | 2022-02-05 13:14 | Event Note ---
Date: 02/05/22 Patient seen and examined this afternoon after he had his upper endoscopy due to dysphagia. According to GI note there was a report of Ornelas's esophagus, H. pylori suspected gastritis, 2 cm hiatal hernia and several biopsy was taking for further evaluation and treatment. Patient is started on PPI by the GI for symptomatic relief. There was not any obstruction that would explain dysphagia. Other than the above, patient's bedside nurse report hypertension after giving patient his daily dose of amlodipine 10 mg with no improvement. We will go ahead and give 10 mg of labetalol and continue to monitor this patient's blood pressure.
[2022-02-05] MEDS ORDERED: LORazepam 2 MG/ML VIAL ONE (15:44)
[2022-02-05] MEDS: LORazepam 2 MG/ML VIAL IM PRN (15:46)
[2022-02-05 15:51] LABS: Bilirubin,Urine NEG (Negative); Blood,Urine NEG (Negative); Color,Urine Yellow (Yellow)
[2022-02-06] MEDS: LORazepam 2 MG/ML VIAL IM PRN (10:50)
--- NOTE | 2022-02-06 11:38 | Emergency Department Report ---
Blank Doc - Documentation Documentation: S: Patient has intermittent agitation requiring restraints overnight. O: Vital Signs - 24 hr 02/05/22 02/06/22 02/06/22 13:53 01:27 01:30 Pulse Rate 58 L 40 L Respiratory 13 12 Rate Blood Pressure 169/86 Blood Pressure 174/87 [Left] O2 Sat by Pulse 100 97 Oximetry 02/06/22 02/06/22 02/06/22 01:46 02:00 02:16 Pulse Rate 37 L 43 L 42 L Respiratory 11 L 13 13 Rate Blood Pressure 169/86 200/90 209/91 Blood Pressure [Left] O2 Sat by Pulse 100 100 100 Oximetry 02/06/22 02/06/22 02/06/22 02:30 02:46 03:00 Pulse Rate 50 L 59 L 56 L Respiratory 15 14 15 Rate Blood Pressure 221/96 Blood Pressure [Left] O2 Sat by Pulse 99 96 98 Oximetry 02/06/22 02/06/22 02/06/22 03:16 03:30 03:46 Pulse Rate 53 L 45 L 42 L Respiratory 14 13 15 Rate Blood Pressure 179/85 Blood Pressure [Left] O2 Sat by Pulse 97 94 98 Oximetry 02/06/22 02/06/22 02/06/22 04:00 04:16 04:30 Pulse Rate 39 L 39 L 66 Respiratory 11 L 13 11 L Rate Blood Pressure Blood Pressure [Left] O2 Sat by Pulse 98 99 97 Oximetry 02/06/22 02/06/22 02/06/22 04:46 05:00 05:16 Pulse Rate 67 49 L 47 L Respiratory 17 13 12 Rate Blood Pressure 170/102 Blood Pressure [Left] O2 Sat by Pulse 98 98 98 Oximetry 02/06/22 02/06/22 02/06/22 05:30 05:46 06:00 Pulse Rate 41 L 45 L 52 L Respiratory 12 16 13 Rate Blood Pressure 155/75 Blood Pressure [Left] O2 Sat by Pulse 95 97 Oximetry 02/06/22 02/06/22 02/06/22 06:16 06:30 06:46 Pulse Rate 53 L 58 L 54 L Respiratory 13 15 10 L Rate Blood Pressure 180/90 Blood Pressure [Left] O2 Sat by Pulse 97 96 97 Oximetry 02/06/22 02/06/22 02/06/22 07:00 07:30 08:00 Pulse Rate 68 56 L 57 L Respiratory 13 14 14 Rate Blood Pressure 177/88 177/88 Blood Pressure [Left] O2 Sat by Pulse 97 98 98 Oximetry 02/06/22 08:30 Pulse Rate 54 L Respiratory 14 Rate Blood Pressure 157/85 Blood Pressure [Left] O2 Sat by Pulse 98 Oximetry A/P: Currently without safe discharge location. Awaiting case management for placement
[2022-02-06] MEDS: amLODIPine 5 MG TAB PO SCH (11:54)
[2022-02-06] MEDS: PANTOPRAZOLE 20 MG TAB PO SCH (11:54)
[2022-02-06] MEDS ORDERED: ATROPINE 1 MG/ML VIAL IV ONE (12:21)
[2022-02-07] MEDS ORDERED: LORazepam 2 MG/ML VIAL ONE ×3 (04:30→20:07)
[2022-02-07] MEDS: LORazepam 2 MG/ML VIAL IM PRN ×3 (04:40→20:16)
[2022-02-07] MEDS: amLODIPine 5 MG TAB PO SCH (09:49)
[2022-02-07] MEDS: PANTOPRAZOLE 20 MG TAB PO SCH (19:46)
[2022-02-07] MEDS: ZOLPIDEM 5 MG TAB PO PRN (22:50)
[2022-02-08] MEDS ORDERED: LORazepam 2 MG/ML VIAL ONE (07:11)
[2022-02-08] MEDS: LORazepam 2 MG/ML VIAL IM PRN (07:17)
[2022-02-08] MEDS: amLODIPine 5 MG TAB PO SCH (11:10)
[2022-02-09] MEDS: ZOLPIDEM 5 MG TAB PO PRN ×2 (00:43→23:42)
[2022-02-09] MEDS ORDERED: LORazepam 2 MG/ML VIAL ONE (02:33)
[2022-02-09] MEDS: PANTOPRAZOLE 20 MG TAB PO SCH (11:43)
[2022-02-09] MEDS: amLODIPine 5 MG TAB PO SCH (11:43)
--- NOTE | 2022-02-09 15:19 | Emergency Department Report ---
Blank Doc - Documentation Documentation: Chart reviewed. 56-year-old male still awaiting placement
[2022-02-10] MEDS ORDERED: LORazepam 2 MG/ML VIAL ONE ×2 (03:11→09:17)
[2022-02-10] MEDS: LORazepam 2 MG/ML VIAL IM PRN (03:29)
[2022-02-10] MEDS: PANTOPRAZOLE 20 MG TAB PO SCH (08:30)
[2022-02-10] MEDS: amLODIPine 5 MG TAB PO SCH (10:17)
[2022-02-11] MEDS ORDERED: LORazepam 2 MG/ML VIAL IM ONE (03:15)
[2022-02-11] MEDS ORDERED: ZOLPIDEM 5 MG TAB PO ONE (03:15)
[2022-02-11] MEDS: PANTOPRAZOLE 20 MG TAB PO SCH (08:14)
[2022-02-11] MEDS ORDERED: ACETAMINOPHEN 325 MG TAB PO ONE (09:17)
[2022-02-11] MEDS: amLODIPine 5 MG TAB PO SCH (09:32)
[2022-02-12] MEDS: PANTOPRAZOLE 20 MG TAB PO SCH (11:02)
[2022-02-12] MEDS: amLODIPine 5 MG TAB PO SCH (11:02)
--- NOTE | 2022-02-13 11:41 | Emergency Department Report ---
Blank Doc - Documentation Documentation: As: No events reported overnight, patient redirectable O: Vital Signs - 24 hr 02/12/22 02/13/22 19:23 04:11 Pulse Rate 60 86 Respiratory 16 16 Rate Blood Pressure 144/63 163/88 [Left] O2 Sat by Pulse 97 99 Oximetry A/P: Awaiting placement/safe discharge
[2022-02-14] MEDS ORDERED: HALOPERIDOL DECANOATE 100 MG/1 ML INJ IM ONE (02:50)
[2022-02-14] MEDS ORDERED: HALOPERIDOL LACTATE 5 MG/1 ML INJ ONE (02:52)
[2022-02-14] MEDS ORDERED: HALOPERIDOL LACTATE 5 MG/1 ML INJ IM ONE (02:59)
[2022-02-14] MEDS: amLODIPine 5 MG TAB PO SCH (12:42)
[2022-02-14] MEDS: PANTOPRAZOLE 20 MG TAB PO SCH (12:42)
--- NOTE | 2022-02-14 12:51 | Emergency Department Report ---
Blank Doc - Documentation Documentation: S: No events overnight O: Vital Signs - 8 hr 02/14/22 02/14/22 02/14/22 06:28 12:06 12:31 Pulse Rate 80 Respiratory 19 Rate Blood Pressure 175/84 Blood Pressure 163/80 [Left] O2 Sat by Pulse 99 99 95 Oximetry 02/14/22 12:42 Pulse Rate 53 L Respiratory Rate Blood Pressure 185/81 Blood Pressure [Left] O2 Sat by Pulse Oximetry A/P: Awaiting placement/safe discharge
[2022-02-15] MEDS: amLODIPine 5 MG TAB PO SCH (10:05)
[2022-02-15] MEDS: PANTOPRAZOLE 20 MG TAB PO SCH (10:06)
[2022-02-15] MEDS ORDERED: GENTAMICIN 0.3% OPHTH OINT 3.5 GM OD ONE (17:42)
[2022-02-16] MEDS: amLODIPine 5 MG TAB PO SCH (10:02)
[2022-02-16 10:03] VITALS: BP 182/89
--- NOTE | 2022-02-16 14:01 | Event Note ---
Date: 02/16/22 (12:30) progress follow up note. Patient with no issues overnight and no new complaints this morning. Patient has been wating for placement x > 1 month. Placement finally found today ED Disposition Disposition: 03 ASSISTED FACILITY Is pt being admited?: No Does the pt Need Aspirin: No Condition: Stable Instructions: Managing Anger, Adult Additional Instructions: Professional and Agency Contacts To help Resolve Crises(23/04) [place] Crisis Line: Suicide Prevention Line: Crisis Text Line: Text START to [phone] Emergency: 911 Outpatient [facility] Behavioral Health Resources: GLORIA: [facility] [address] [place], [place] [address] PALMER: [facility] [address] [place] [address] SAN[place]: [facility] [address] [place] [address] Sunday thru Sunday - 8am - 5pm [facility] Service Address: [address] [place] [address] MANDIE: [facility] Address: [address] [place] [address] Sunday thru Sunday- 7am-2pm [facility] Address: [address] [place] [address] Sunday thru Sunday: 8:30AM-5PM OUTPATIENT MENTAL HEALTH RESOURCES [facility], [address] [place] [address] [facility] Troy Young MD: [address] [facility] [address] [place], [place] [id number] [facility]: [address], [place] [id number] [employer] [place], [place] [id number] [phone] [facility]: [address] [place], [place] [id number] [facility]: [address] [place] [address] [facility]: [address] [place] [address] Curtis Reyes MD: [address] [facility] [address] [facility]: [address] [place], [place] [id number] [phone] [place] CRISIS AND ACCESS LINE: * Referrals: EILEEN MOYA MD [Primary Care Provider] - 3-5 Days Time of Disposition: 14:00 (To [facility]) ED Medical Decision Making - Lab Data Result diagrams: 02/03/22 22:42 02/03/22 22:42 Laboratory Tests 01/11/22 01/31/22 02/03/22 10:43 23:30 22:42 WBC 9.6 RBC 4.47 Hgb 13.6 Hct 39.3 MCV 88 MCH 30 MCHC 35 H RDW 14.5 Plt Count 272 Lymph % (Auto) 29.6 [place] % (Auto) 10.3 H Eos % (Auto) 1.3 Baso % (Auto) 1.1 Lymph # (Auto) 2.8 [place] # (Auto) 1.0 H Eos # (Auto) 0.1 Baso # (Auto) 0.1 Seg Neutrophils % 57.7 Seg Neutrophils # 5.5 Sodium Potassium Chloride Carbon Dioxide Anion Gap BUN Creatinine Estimated GFR BUN/Creatinine Ratio Glucose POC Glucose Calcium Urine Color Yellow Urine Turbidity Clear Urine pH 5.0 Ur Specific [place] 1.020 Urine Protein <15 mg/dl Urine Glucose (UA) Neg Urine Ketones Neg Urine Blood Neg Urine Nitrite Neg Urine Bilirubin Neg Urine Urobilinogen 4.0 Ur Leukocyte Esterase Neg Urine WBC (Auto) 1.0 Urine RBC (Auto) 2.0 U Epithel Cells (Auto) 1.0 Urine Mucus 3+ SARS-CoV-2 (PCR) Negative 02/03/22 02/05/22 02/05/22 22:42 09:44 10:39 WBC RBC Hgb Hct MCV MCH MCHC RDW Plt Count Lymph % (Auto) [place] % (Auto) Eos % (Auto) Baso % (Auto) Lymph # (Auto) [place] # (Auto) Eos # (Auto) Baso # (Auto) Seg Neutrophils % Seg Neutrophils # Sodium 141 Potassium 3.6 Chloride 101.3 Carbon Dioxide 29 Anion Gap 14 BUN 20 Creatinine 0.9 Estimated GFR > 60 BUN/Creatinine Ratio 22 Glucose 154 H POC Glucose 92 Calcium 9.4 Urine Color Urine Turbidity Urine pH Ur Specific [place] Urine Protein Urine Glucose (UA) Urine Ketones Urine Blood Urine Nitrite Urine Bilirubin Urine Urobilinogen Ur Leukocyte Esterase Urine WBC (Auto) Urine RBC (Auto) U Epithel Cells (Auto) Urine Mucus SARS-CoV-2 (PCR) Negative 02/05/22 Unknown WBC RBC Hgb Hct MCV MCH MCHC RDW Plt Count Lymph % (Auto) [place] % (Auto) Eos % (Auto) Baso % (Auto) Lymph # (Auto) [place] # (Auto) Eos # (Auto) Baso # (Auto) Seg Neutrophils % Seg Neutrophils # Sodium Potassium Chloride Carbon Dioxide Anion Gap BUN Creatinine Estimated GFR BUN/Creatinine Ratio Glucose POC Glucose Calcium Urine Color Yellow Urine Turbidity Clear Urine pH 5.0 Ur Specific [place] 1.024 Urine Protein 30 mg/dl Urine Glucose (UA) Neg Urine Ketones 20 Urine Blood Neg Urine Nitrite Neg Urine Bilirubin Neg Urine Urobilinogen 4.0 Ur Leukocyte Esterase Neg Urine WBC (Auto) 1.0 Urine RBC (Auto) 1.0 U Epithel Cells (Auto) Urine Mucus SARS-CoV-2 (PCR) CT head (02/03/2022): no acute intracrnial process CXR (02/03/2022): no acute cardiopulmonary process
== END 2022-02-16 22:34 ==
LOC: EEVIPCON 16:16 → ED 16:16
DX: R45.6 Violent behavior (principal); Z20.822 Contact with and (suspected) exposure to COVID-19
CPT/HCPCS: 36415; 70450; 71045; 80048; 81001; 82962; 85025; 88305; 88342; 96372; 96374; 99285; J0461; J1200; J1630; J2060; J2704; J7030; U0003; 99284; J3490